=== PATIENT | female | born 1940 | race Caucasian/White ===

== ENCOUNTER 2022-05-23 12:36 | Emergency (ER) | payer MEDICARE, OTHER, SELFPAY ==
--- NOTE | 2022-05-23 13:00 | DI.CT.S_ITS ---
PROCEDURE: CT CERVICAL SPINE WO CON INDICATIONS: fall, back pain, dementia TECHNIQUE: Noncontrast 3 mm thick sections acquired from the skull base to the T4 level. Sagittal and coronal reformats were then constructed. For radiation dose reduction, the following was used: automated exposure control, adjustment of mA and/or kV according to patient size. COMPARISON: None. FINDINGS: Image quality: Excellent. Bones: No fracture or dislocation. Visualized superior ribs are intact. Soft tissues: Prevertebral soft tissues are normal in thickness. No paravertebral hematomas. No apical pneumothoraces. IMPRESSION: No CT evidence of acute traumatic cervical spine injury. Dictated by: Jose Washburn M.D. on 05/23/2022 at 13:56 Approved by: Jose Washburn M.D. on 05/23/2022 at 13:58
--- NOTE | 2022-05-23 13:00 | DI.CT.S_ITS ---
PROCEDURE: CT HEAD/BRAIN WO CON INDICATIONS: fall, back pain, dementia TECHNIQUE: Noncontrast 4.5 mm thick angled axial sections acquired from the foramen magnum to the vertex, with coronal and sagittal reformats. For radiation dose reduction, the following was used: automated exposure control, adjustment of mA and/or kV according to patient size. COMPARISON: None. FINDINGS: Image quality: Excellent. CSF spaces: Basal cisterns are patent. No extra-axial fluid collections. The ventricles are symmetric in size and shape. Brain: No intracranial bleeds or masses. There is moderate cerebral volume loss for age, with resultant ventricular and sulcal prominence. There are moderate periventricular and deep white matter chronic small vessel ischemic changes. There is intracranial internal carotid artery atherosclerosis. Skull and face: Calvarium and visualized facial bones appear intact, without suspicious lesions. Sinuses: Visualized sinuses and mastoids are clear. IMPRESSION: No acute intracranial finding. Dictated by: Jose Washburn M.D. on 05/23/2022 at 13:52 Approved by: Jose Washbrun M.D. on 05/23/2022 at 13:53
[2022-05-23 13:09] VITALS: BP 116/59; PULSE 64; RESP 18; TEMP 36.8; O2SAT 97; BMI 29.2
--- NOTE | 2022-05-23 13:15 | DI.RAD.S_ITS ---
PROCEDURE: XR FOREARM RT 2V INDICATIONS: fall/pain TECHNIQUE: 2 views of the forearm were acquired. COMPARISON: None. FINDINGS: Bones: There is a mildly displaced fracture of 1 bone with of the distal 3rd of the right radius diaphysis. Ulna is intact. Soft tissues: No suspicious soft tissue calcifications or masses. IMPRESSION: Mildly displaced fracture and angulation of the distal 3rd of the left ulna. Dictated by: Erick Ascencio M.D. on 05/23/2022 at 14:34 Approved by: Erick Ascencio M.D. on 05/23/2022 at 14:35
--- NOTE | 2022-05-23 13:15 | DI.RAD.S_ITS ---
PROCEDURE: XR WRIST RT MIN 3V INDICATIONS: fall/pain TECHNIQUE: 4 views of the wrist were acquired. COMPARISON: None. FINDINGS: Bones: Fracture of the distal 3rd of the ulna diaphysis with displacement and angulation. Severe degenerative changes of the 1st metacarpophalangeal joint. Scaphoid view: No fracture identified Soft tissues: No suspicious soft tissue calcifications. IMPRESSION: 1. Fracture of the distal 3rd of the ulna diaphysis with displacement and angulation. 2. Severe degenerative changes of the 1st metacarpophalangeal joint. Dictated by: Erick Ascencio M.D. on 05/23/2022 at 14:35 Approved by: Erick Ascencio M.D. on 05/23/2022 at 14:37
--- NOTE | 2022-05-23 13:20 | DI.CT.S_ITS ---
PROCEDURE: CT THORACIC SPINE WO CON INDICATIONS: S TECHNIQUE: Noncontrast 3 mm thick sections acquired through the region of interest in the thoracic spine. Sagittal and coronal reformats were then constructed. For radiation dose reduction, the following was used: automated exposure control. COMPARISON: None. FINDINGS: Thoracic and thoracolumbar S-shaped scoliosis. No listhesis in the thoracic spine. Vertebral body heights maintained. No acute fracture. Remote right posterior rib fractures noted. IMPRESSION: No CT evidence of acute traumatic thoracic spine injury. Dictated by: Jose Washburn M.D. on 05/23/2022 at 14:01 Approved by: Jose Washburn M.D. on 05/23/2022 at 14:03
--- NOTE | 2022-05-23 13:20 | DI.CT.S_ITS ---
PROCEDURE: CT LUMBAR SPINE WO CON INDICATIONS: FALL TECHNIQUE: Noncontrast 3 mm thick sections acquired from the T12 level to the sacrum. Sagittal and coronal reformats were constructed. For radiation dose reduction, the following was used: automated exposure control. COMPARISON: [facility], CT, CT THORACIC SPINE WO CON, 05/23/2022, 13:24. FINDINGS: Vertebral body heights maintained. Degenerative anterolisthesis of L4 on L5 measuring 4 millimeters. Otherwise normal alignment. Degenerative changes. No acute soft tissue abnormality. IMPRESSION: No CT evidence of acute traumatic injury in the lumbar spine. Dictated by: Jose Washburn M.D. on 05/23/2022 at 13:58 Approved by: Jose Washburn M.D. on 05/23/2022 at 14:01
--- NOTE | 2022-05-23 17:38 | ED.UPPEXIN ---
HPI - Extremity Injury (Upper) General Chief Complaint: Extremity Injury, Upper Stated Complaint: fall today, back pain,R arm injury, dementia Time Seen by Provider: 05/23/22 13:00 Source: patient Mode of arrival: Wheelchair History of Present Illness HPI narrative: This is a 82-year-old female who is brought into the emergency department by family member and caregiver who states that patient has had increased falls over the last few weeks, increased weakness, history of dementia, today fell down and complains back pain, hip and leg pain, right forearm pain and states this is the worst of all of her problems. She does not have any open wounds or abrasion, right forearm is deformed, she is able to move all of her fingers, denies numbness or tingling, she is ambulatory, without new weakness or unilateral weakness. She is pleasant, normal phonation, talkative, A&O times 1-3 but forgetful, easily directable. Patient has not had any pain medication prior to her arrival. She is right-hand dominant, lives at [facility]. Her primary care provider is Dr. Nir Ayon. Denies any urinary changes, patient's daughter states that her last urine was negative for infection and it was within the last week. She has not had any upper respiratory symptoms of illness, she has generalized weakness, and deconditioning. She is not in physical therapy at this time. Patient's daughter denies any abnormal behavior, states that she thinks she is getting weaker because she does not practice any physical exercise. Related Data Allergies Allergy/AdvReac Type Severity Reaction Status Date / Time morphine AdvReac Severe Vomiting Verified 05/23/22 13:08 Review of Systems Review of Systems ROS Unobtainable: All systems reviewed & are unremarkable except as noted in HPI and below Patient History Social History Smoking Status: Never smoker Smoking Status: Never smoker Substance Use Type: does not use Exam Narrative Exam Narrative: Reviewed vitals signs and nursing notes. General: cooperative, comfortable, in no acute distress, well groomed HEENT: symmetrical facial expressions, moist mucous membranes MSK: moves all extremities, neurovascularly intact, no focal weakness, normal tone. Deformity to right forearm over the distal ulna proximally, patient with normal sensation to her fingers, can wiggle all fingers with normal range of motion and no deficit, normal range of motion of her right elbow without deficit, tenderness to palpation. Complains of pain at her right forearm where the deformity is. No tenderness to her spine with palpation, Skin: brisk capillary refill, without pallor or erythema Neuro: normal speech and cognition, A&O x1-3, history of dementia, ambulatory, clear speech Psych: mental status is grossly normal with history of dementia, wants to go home, congruent mood, normal affect, pleasant and cooperative Initial Vital Signs Initial Vital Signs: Vital Signs Temperature 98.2 F 05/23/22 13:09 Pulse Rate 64 05/23/22 13:09 Respiratory Rate 18 05/23/22 13:09 Blood Pressure 116/59 L 05/23/22 13:09 Pulse Oximetry 97 05/23/22 13:09 Oxygen Delivery Method 05/23/22 13:09 Procedures Orthopedic Splinting/Casting Injury #1: Side: right Upper Extremity Injury Location: forearm Upper Extremity Immobilizer: sling/shoulder immobilizer and sugar tong splint Post splinting neuro exam: intact and no change Post splinting vascular exam: intact Placed by: Provider Additional Comments: Pulled traction on the ulnar aspect while applying splint with improved pain, mild improvement in angulation, patient remains neurovascularly intact following splint, fingertips warm Course Orders Ordered: ED Orders 05/23/22 13:00 CT cervical spine wo con Stat CT head/brain wo con Stat 05/23/22 13:15 XR forearm RT 2V Stat XR wrist RT min 3V Stat 05/23/22 13:20 CT lumbar spine wo con Stat CT thoracic spine wo con Stat Discontinued Medications Acetaminophen (Acetaminophen 325 Mg Tablet) 650 mg PO NOW ONE Stop: 05/23/22 17:36 Last Admin: 05/23/22 17:45 Dose: 650 mg Ibuprofen (Ibuprofen 400 Mg Tablet) 400 mg PO NOW ONE Stop: 05/23/22 17:36 Last Admin: 05/23/22 17:45 Dose: 400 mg Methocarbamol (Methocarbamol 500 Mg Tablet) 250 mg PO NOW ONE Stop: 05/23/22 17:36 Last Admin: 05/23/22 17:45 Dose: 250 mg Vital Signs Vital signs: Vital Signs - 8 hr 05/23/22 13:09 05/23/22 18:58 Temperature 98.2 F Pulse Rate 64 70 Respiratory Rate 18 16 Blood Pressure 116/59 L 120/60 Pulse Oximetry 97 97 Oxygen Delivery Method Room Air Room Air MDM - Extremity Injury (Upper) Imaging Data Extremity x-ray #1: Radiologist's Impression: PROCEDURE:? XR FOREARM RT 2V ? INDICATIONS:? fall/pain ? TECHNIQUE:? 2 views of the forearm were acquired.? ? COMPARISON:? None. ? FINDINGS:? ? Bones:? There is a mildly displaced fracture of 1 bone with of the distal 3rd of the right radius diaphysis.? Ulna is intact. ? Soft tissues:? No suspicious soft tissue calcifications or masses.? ? ? IMPRESSION:? Mildly displaced fracture and angulation of the distal 3rd of the left ulna. ? Dictated by: Erick Ascencio M.D. on 05/23/2022 at 14:34 ? ? Approved by: Erick Ascencio M.D. on 05/23/2022 at 14:35 ? ct thoracic: Radiologist's Impression: PROCEDURE:? CT THORACIC SPINE WO CON ? INDICATIONS:? S ? TECHNIQUE:? Noncontrast 3 mm thick sections acquired through the region of interest in the thoracic spine.? Sagittal and coronal reformats were then constructed.? For radiation dose reduction, the following was used:? automated exposure control.? ? COMPARISON:? None. ? FINDINGS:? Thoracic and thoracolumbar S-shaped scoliosis.? No listhesis in the thoracic spine.? Vertebral body heights maintained.? No acute fracture.? Remote right posterior rib fractures noted. ? IMPRESSION:? No CT evidence of acute traumatic thoracic spine injury. ? ? Dictated by: Jose Washburn M.D. on 05/23/2022 at 14:01 ? ? Approved by: Jose Washburn M.D. on 05/23/2022 at 14:03 ? ct lumbar: Radiologist's Impression: PROCEDURE:? CT LUMBAR SPINE WO CON ? INDICATIONS:? FALL ? TECHNIQUE:? Noncontrast 3 mm thick sections acquired from the T12 level to the sacrum.? Sagittal and coronal reformats were constructed.? For radiation dose reduction, the following was used:? automated exposure control.? ? COMPARISON:? [facility], CT, CT THORACIC SPINE WO CON, 05/23/2022, 13:24. ? FINDINGS:? Vertebral body heights maintained.? Degenerative anterolisthesis of L4 on L5 measuring 4 millimeters.? Otherwise normal alignment.? Degenerative changes.? No acute soft tissue abnormality. ? ? IMPRESSION:? No CT evidence of acute traumatic injury in the lumbar spine. ? ? Dictated by: Jose Washburn M.D. on 05/23/2022 at 13:58 ? ? Approved by: Jose Washburn M.D. on 05/23/2022 at 14:01 ? Extremity x-ray #2: Radiologist's Impression: PROCEDURE:? XR WRIST RT MIN 3V ? INDICATIONS: fall/pain ? TECHNIQUE:? 4 views of the wrist were acquired.? ? COMPARISON:? None. ? FINDINGS:? ? Bones:? Fracture of the distal 3rd of the ulna diaphysis with displacement and angulation.? Severe degenerative changes of the 1st metacarpophalangeal joint. ? Scaphoid view:? No fracture identified ? Soft tissues:? No suspicious soft tissue calcifications.? ? IMPRESSION:? 1. Fracture of the distal 3rd of the ulna diaphysis with displacement and angulation. 2. Severe degenerative changes of the 1st metacarpophalangeal joint.? ? ? Dictated by: Erick Ascencio M.D. on 05/23/2022 at 14:35 ? ? Approved by: Erick Ascencio M.D. on 05/23/2022 at 14:37 ? CT scan - head: Radiologist's Impression: PROCEDURE:? CT HEAD/BRAIN WO CON ? INDICATIONS:? fall, back pain, dementia ? TECHNIQUE:? Noncontrast 4.5 mm thick angled axial sections acquired from the foramen magnum to the vertex, with coronal and sagittal reformats.? For radiation dose reduction, the following was used:? automated exposure control, adjustment of mA and/or kV according to patient size.? ? COMPARISON:? None. ? FINDINGS:? Image quality:? Excellent.? ? CSF spaces:? Basal cisterns are patent.? No extra-axial fluid collections.? The ventricles are symmetric in size and shape.? ? Brain:? No intracranial bleeds or masses.? There is moderate cerebral volume loss for age, with resultant ventricular and sulcal prominence.? There are moderate periventricular and deep white matter chronic small vessel ischemic changes.? There is intracranial internal carotid artery atherosclerosis.? ? Skull and face:? Calvarium and visualized facial bones appear intact, without suspicious lesions.? ? Sinuses:? Visualized sinuses and mastoids are clear.? ? IMPRESSION:? No acute intracranial finding. ? ? Dictated by: Jose Washburn M.D. on 05/23/2022 at 13:52 ? ? Approved by: Jose Washburn M.D. on 05/23/2022 at 13:53 ? CT - cervical spine: Radiologist's Impression: PROCEDURE:? CT CERVICAL SPINE WO CON ? INDICATIONS:? fall, back pain, dementia ? TECHNIQUE:? Noncontrast 3 mm thick sections acquired from the skull base to the T4 level.? Sagittal and coronal reformats were then constructed.? For radiation dose reduction, the following was used:? automated exposure control, adjustment of mA and/or kV according to patient size.? ? COMPARISON:? None. ? FINDINGS:? Image quality:? Excellent.? ? Bones:? No fracture or dislocation.? Visualized superior ribs are intact.? ? Soft tissues:? Prevertebral soft tissues are normal in thickness.? No paravertebral hematomas.? No apical pneumothoraces.? ? ? IMPRESSION:? No CT evidence of acute traumatic cervical spine injury. ? ? Dictated by: Jose Washburn M.D. on 05/23/2022 at 13:56 ? ? Approved by: Jose Washburn M.D. on 05/23/2022 at 13:58 ? MDM Narrative Medical decision making narrative: This is an 82-year-old female who presents to the emergency department after a mechanical fall at her assisted living residence with history of frequent falls, dementia, she is not anticoagulated, did not hit her head, have any episodes of vomiting, and presents to the emergency department for complaint of right forearm pain, back pain, leg pain with a family member who is also a caregiver and good historian for the patient. Patient had a deformity of her distal right forearm, was found to have a fractured ulna with significant displacement Discharge Plan Departure Patient Disposition: Home Clinical Impression: Fracture, ulna, distal Instructions: Forearm Fracture Activity Restrictions/Additional Instructions: *You have been diagnosed with a fracture of the ulnar bone in your right arm with significant displacement. Thursday morning, please call for follow-up with [facility] as soon as possible. Please have her seen as soon as they are able, this may be treated surgically with a plate. Please give her pain medicine as needed for her pain, encourage hydration, she needs extra observation and support for risk of falls. For pain, please give her Tylenol 650 mg with ibuprofen 400 mg every 6 hours as needed with food and water. She can keep her arm in a sling to help keep it elevated, have her elevate it frequently. *What to do: *Please continue to take your regular medications as directed. [ ] New medication prescriptions sent to your pharmacy: [ ] [ ] New medication written as a paper prescription [x ] No new medications given *Please follow up with your primary care provider in 2-3 days, call for an appointment. Let them know you were seen in the Emergency Department and that we asked that you be seen for follow-up. We will electronically transmit a record of today's note if your PCP is in our system *If you do not have a primary care provider please contact [phone] to establish care with one of [facility] primary care providers. *Return to Emergency Department if you should have any new, worsening, or concerning symptoms, such as [fever greater than 101F, chills, worsening pain, persistent vomiting or other bothersome symptoms]. Referrals: [facility] [Provider Group] Rachna Burgos MD [Primary Care Provider] - Lavon Batista MD [Physician] -
[2022-05-23] MEDS: ACETAMINOPHEN 325 MG TABLET 650 MG PO (17:45)
[2022-05-23] MEDS: methocarbamoL 500 MG TABLET 250 MG PO (17:45)
[2022-05-23] MEDS: IBUPROFEN 400 MG TABLET PO (17:45)
[2022-05-23 18:58] VITALS: BP 120/60; PULSE 70; RESP 16; O2SAT 97
== END 2022-05-23 18:59 | disposition home or self-care (01) ==
PROVIDERS: Emergency Provider Nurse Practitioner Critical Care Medicine; PCP Internal Medicine
DX: S52.601A Unspecified fracture of lower end of right ulna, initial encounter for closed fracture (principal); M54.9 Dorsalgia, unspecified; W18.30XA Fall on same level, unspecified, initial encounter; R29.6 Repeated falls; F03.90 Unspecified dementia, unspecified severity, without behavioral disturbance, psychotic disturbance, mood disturbance, and anxiety
CPT/HCPCS: 29125; 70450; 72125; 72128; 72131; 73090; 73110; 99284

== ENCOUNTER 2022-05-25 19:03 | Inpatient (IN) | payer MEDICARE, OTHER, SELFPAY ==
[2022-05-25 19:50] VITALS: BMI 25.8
[2022-05-25 21:10] VITALS: BP 100/59; PULSE 73; RESP 22; TEMP 36.4; O2SAT 93
--- NOTE | 2022-05-25 21:20 | P.HP_ITS ---
History of Present Illness History of Present Illness Date Patient Seen: 05/25/22 Time Patient Seen: 20:45 Chief complaint: INPT DIRECT ADMIT Narrative: Sweetie is an 82-year-old woman with a history of dementia. She lives at an assisted living home in [place]. She is had 2 recent falls. She was seen in the emergency room on May 23 where a radial shaft fracture was diagnosed. She was sent home in a splint with instructions to call our office for follow- up. She subsequently had a 2nd fall landing on her right hip and was unable to rise. Radiographs there have shown a displaced femoral neck fracture. She is been transferred to [facility] for definitive management of these fractures. Patient History Medical History (Updated 05/25/22 @ 21:25 by Lavon Batista MD) Dementia Glaucoma Hypercholesterolemia Hypertension Hypothyroidism Surgical History (Updated 05/25/22 @ 21:25 by Lavon Batista MD) H/O: hysterectomy Family & Social History Social History: Prior Living Arrangements Assisted Living Safety & Behavioral: Feels Safe in Current No Environment Been Physically Hurt or No Threatened By a Person Tobacco & Substance use: Smoking Status Never smoker alcohol intake never Substance Use Type does not use Meds Home Medications and Allergies Home Medications Medication Instructions Recorded Confirmed Type acetaminophen 500 mg capsule 500 mg PO Q6H PRN pain 05/25/22 05/25/22 History atorvastatin 40 mg tablet 40 mg PO DAILY 05/25/22 05/25/22 History docusate sodium 100 mg capsule 100 mg PO DAILY PRN Constipation 05/25/22 05/25/22 History hydrochlorothiazide 12.5 mg capsule 12.5 mg PO DAILY 05/25/22 05/25/22 History latanoprost 0.005 % eye drops 1 drp ophthalmic (eye) BEDTIME 05/25/22 05/25/22 History levothyroxine 50 mcg tablet 50 mcg PO DAILY 05/25/22 05/25/22 History loperamide 2 mg capsule 2 mg PO QID PRN Diarrhea 05/25/22 05/25/22 History metoprolol succinate 25 mg capsule 25 mg PO DAILY 05/25/22 05/25/22 History sprinkle, ext. release 24 hr potassium chloride 10 mEq 10 meq PO DAILY 05/25/22 05/25/22 History tablet,extended release (Klor-Con) sennosides 8.6 mg capsule (senna) 8.6 mg PO DAILY PRN Constipation 05/25/22 05/25/22 History sertraline 50 mg tablet 75 mg PO DAILY 05/25/22 05/25/22 History timolol 0.5 % eye drops 1 drp ophthalmic (eye) BID 05/25/22 05/25/22 History Allergies Allergy/AdvReac Type Severity Reaction Status Date / Time morphine AdvReac Severe Vomiting Verified 05/23/22 13:08 Review of Systems Review of Systems Narrative: She has had recent progression in her dementia. She denies any current medical illness however dementia does prevent detailed review of systems. Exam Narrative Exam Narrative: On physical examination she is lying comfortably in bed but somewhat agitated, picking at her sheets and attempting to get up. She is normocephalic atraumatic. Chest is clear to auscultation. Cardiac exam is regular rate and rhythm no rubs murmurs or gallops. Abdomen is soft nontender with normal abdominal bowel sounds. Right upper extremity is in a well-fitting sugar-tong splint with intact light touch distally. Right lower extremity is appropriately aligned however there is pain on pressure on the right hip. There is no sign of any skin lesion over the site of the proposed incision. She has intact light touch and motion in the right lower extremity distally. Assessment & Plan Assessment & Plan narrative: The patient is a woman with a history of hypertension, glaucoma, hypercholesterolemia, hypothyroidism and dementia who lives at assisted living and has had 2 recent fall sustaining injuries to the right forearm with a radial shaft fracture into the right femoral neck with a femoral neck fracture. I have discussed treatment with her son who holds durable power of environmental attorney. I have explained that she likely will require a hemiarthroplasty for her hip although final decision here will be made after full radiographic studies have been transmitted from [facility]. (She was sent without radiographs accompanying her). Radial shaft fracture will require a dynamic compression plate. Has given his signed informed consent after discussion the risks benefits and alternatives. Risks discussed included but were not limited to: Failure to improve, stiffness, infection, nerve damage, deep venous thrombosis, pulmonary embolism, stroke, myocardial infarction, permanent paralysis and . A hospitalist consult will be obtained for assistance with her medical issues during her hospitalization. COVID-19 COVID-19 status: Negative Result date/Date tested (Pos, Neg/Pending): 05/25/22 Time Spent With Patient Critical Care time: I spent a total of [] minutes of critical care time on this patient's care today; this time is exclusive of procedural time.
[2022-05-25] MEDS: LORazepam 2 MG/ML INJ 0.5 MG IV (21:22)
[2022-05-25] MEDS: SODIUM CHLORIDE 0.9% FLUSH 10 ML IV (21:22)
--- NOTE | 2022-05-25 21:36 | P.CONS_ITS ---
History of Present Illness Consult details Date Patient Seen: 05/25/22 Time Patient Seen: 23:00 Chief complaint: INPT DIRECT ADMIT Narrative: Ms. Porras is an 82W with PMH dementia, HTN, hypothyroid who is a direct admit after a fall. She was seen in the ED after a fall on 05/23/22 and had a radial shaft fracture. She was discharged. She fell again and landed on her right hip, she was unable to bear weight. She presented to [facility] and was transferred to [facility] and admitted to orthopedic surgery service. Medicine is consulted to assist with management of her medical issues including dementia and hypertension. Labs at [facility] largely unremarkable with WBC 7.3, hgb 13.3, creatinine 0.7. UA negative for infection. R hip imaging notable for right femoral neck fracture. CT head with no acute process When I see her she is somewhat confused, she is denying pain. Family history: asked and patient does not recall any family, possibly secondary to dementia Meds Home Medications and Allergies Home Medications Medication Instructions Recorded Confirmed Type acetaminophen 500 mg capsule 500 mg PO Q6H PRN pain 05/25/22 05/25/22 History atorvastatin 40 mg tablet 40 mg PO DAILY 05/25/22 05/25/22 History docusate sodium 100 mg capsule 100 mg PO DAILY PRN Constipation 05/25/22 05/25/22 History hydrochlorothiazide 12.5 mg capsule 12.5 mg PO DAILY 05/25/22 05/25/22 History latanoprost 0.005 % eye drops 1 drp ophthalmic (eye) BEDTIME 05/25/22 05/25/22 History levothyroxine 50 mcg tablet 50 mcg PO DAILY 05/25/22 05/25/22 History loperamide 2 mg capsule 2 mg PO QID PRN Diarrhea 05/25/22 05/25/22 History metoprolol succinate 25 mg capsule 25 mg PO DAILY 05/25/22 05/25/22 History sprinkle, ext. release 24 hr potassium chloride 10 mEq 10 meq PO DAILY 05/25/22 05/25/22 History tablet,extended release (Klor-Con) sennosides 8.6 mg capsule (senna) 8.6 mg PO DAILY PRN Constipation 05/25/22 05/25/22 History sertraline 50 mg tablet 75 mg PO DAILY 05/25/22 05/25/22 History timolol 0.5 % eye drops 1 drp ophthalmic (eye) BID 05/25/22 05/25/22 History Allergies Allergy/AdvReac Type Severity Reaction Status Date / Time morphine AdvReac Severe Vomiting Verified 05/23/22 13:08 Review of Systems Review of Systems Narrative: 14 systems reviewed and negative aside from what is noted in HPI Exam Narrative Exam Narrative: GEN: slightly agitated HEENT: moist mucous membranes, PERRL NECK: trachea midline, no JVD PULM: clear bilaterally, no wheezes, rhonchi, rales CV: regular rate and rhythm, no murmurs ABD: soft, nontender, nondistended, no organomegaly, normal bowel sounds EXT: warm and well perfused, no edema NEURO: awake, alert, confused PFSH Medical History Dementia Glaucoma Hypercholesterolemia Hypertension Hypothyroidism Surgical History H/O: hysterectomy Tobacco & Substance Use Smoking Status: Never smoker alcohol intake: never Assessment & Plan Assessment & Plan narrative: 1. Right hip fracture -NPO at midnight -pain medications ordered -admitted to orthopedic surgery and plan per them for surgery tomorrow 2. Right forearm fracture -plan per orthopedic surgery 3. Hypertension -continue home medications 4. Dementia -reorient as able -ativan ordered for anxiety/agitation 5. Hypothyroidism -continue synthroid CODE: DNR Proxy: Quinton Collado, daughter I have utilized all available resources to reconcile the patient's home medications Time Spent With Patient Critical Care time: I spent a total of [] minutes of critical care time on this patient's care today; this time is exclusive of procedural time.
[2022-05-26] VITALS (13 sets, daily range): BP systolic 114–198; BP diastolic 54–93; PULSE 58–121; RESP 16–31; TEMP 36.1–36.9; O2SAT 88–100
--- NOTE | 2022-05-26 | DI.RAD.S_ITS ---
PROCEDURE: XR PELVIS 1-2V INDICATIONS: right femural neck fracture TECHNIQUE: Intra-operative view of the pelvis and hip acquired. COMPARISON: [facility], CR, XR HIP W PEL IF DONE RT 2V, 05/26/2022, 9:32. FINDINGS: Bones: There is interval placement of a right hip prosthesis. No fractures or dislocation. Soft tissues: Overlying surgical retractors are present, along with other intraoperative changes. IMPRESSION: 1. Intraoperative study demonstrates interval placement of a right hip prosthesis. Dictated by: Gavino Chapin M.D. on 05/26/2022 at 22:04 Approved by: Gavino Chapin M.D. on 05/26/2022 at 22:05
--- NOTE | 2022-05-26 00:06 | PC.ADMIT ---
Addendum entered by Danielle Lozoya R.N. 05/26/22 02:32: Has splint to right UE (recent fx of radial shaft). CMS intact except hand is cool to touch. Original Note: Donaldo E Alina Finne num [id number] Admission Note: The patient,Sweetie Porras,82 y/o, was given written information regarding hospital policies, unit procedures and contact persons. Patient's smoking status: Never smoker. Vital Signs - 8 hr 05/25/22 19:50 05/25/22 21:00 Temperature 97.5 F L Pulse Rate 73 Respiratory Rate 22 Blood Pressure 100/59 L Pulse Oximetry 93 Oxygen Delivery Method Room Air Patient admitted to room 223 via BLS transport. On arrival was agitated, combative and resistive to cares; trying to get out of bed. Did calm down somewhat after son and DIL arrived. Is alert but confused. Dr. Batista was here to see patient and order received for Ativan which was administered. At this time patient is calm and cooperative with staff. Breath sounds CTA with RA sat of 93%. HRR. Denied nausea. BT present and abdomen is soft. Indwelling catheter placed by FABY Morrissey with return of clear, dark moreno urine. Denies pain when asked. Bilateral calf SCD's applied. Fall risk score is high and bed alarm is activated. Son rooming in.
[2022-05-26] MEDS: LORazepam 2 MG/ML INJ 0.5 MG IV ×2 (03:22→22:18)
[2022-05-26] MEDS: SODIUM CHLORIDE 0.9% FLUSH 10 ML IV ×3 (03:23→23:20)
[2022-05-26 05:11] LABS: Add Manual Diff / Slide Review NO; Basophils Absolute Auto 0 /uL (0-100); Basophils Percent Auto 0.4 % (0-2); Eosinophils Absolute Auto 200 /uL (0-450); Eosinophils Percent Auto 2.8 % (2-4); Hematocrit 41.1 % (36-46); Hemoglobin 13.8 g/dL (12.0-16.0); Lymphocytes Absolute Auto 1300 /uL (1100-4500); Lymphocytes Percent Auto 21.2 % (25-40); Mean Corpuscular HGB Conc 33.5 % (30-36); Mean Corpuscular Hemoglobin 29.1 PG (26-34); Mean Corpuscular Volume 86.7 fL (80-100); Monocytes Absolute Auto 600 /uL (0-900); Monocytes Percent Auto 9.8 % (3-14); Neutrophils Absolute Auto 4200 /uL (1500-7000); Neutrophils Percent Auto 65.8 % (50-75); Platelet Count 156 X10^3/uL (150-400); Red Blood Cell Count 4.74 X10^6/uL (4.0-5.2); Red Cell Distribution Width 13.7 % (11.6-14.8); White Blood Cell Count 6.4 X10^3/uL (4.5-11.0)
[2022-05-26 05:20] LABS: BUN Creatinine Ratio 27.5 (6-22); Blood Urea Nitrogen 14 mg/dL (7-17); Calcium 8.1 mg/dL (8.4-10.2); Carbon Dioxide 26 mmol/L (22-32); Chloride 99 mmol/L (98-107); Estimated Glomerular Filt Rate > 60 mL/min (>60); Glucose 78 mg/dL (80-110); HEMOLYSIS < 15 (0-50); Sodium 136 mmol/L (137-145)
[2022-05-26 05:42] LABS: Potassium 2.7 mmol/L (3.4-5.1)
[2022-05-26] MEDS: LEVOTHYROXINE 50 MCG TABLET PO (06:14)
[2022-05-26] MEDS: POTASSIUM CHLORIDE IN WATER 10 MEQ/100 ML PIGGYBACK 100 MEQ IV ×4 (06:14→10:45)
--- NOTE | 2022-05-26 09:08 | DI.RAD.S_ITS ---
PROCEDURE: XR HIP W PEL IF DONE RT 2V INDICATIONS: Right hip fracture TECHNIQUE: 2 views of the hip were acquired. COMPARISON: None. FINDINGS: Mildly angulated subcapital femoral neck fracture. No additional fracture. IMPRESSION: Minimally angulated subcapital femoral neck fracture. Dictated by: Jose Washburn M.D. on 05/26/2022 at 10:20 Approved by: Jose Washburn M.D. on 05/26/2022 at 10:21
--- NOTE | 2022-05-26 14:24 | CM.DANOTE ---
Addendum entered by Elzbieta Mccann R.N. 05/26/22 14:40: Son will bring in POA/Living will paperwork tomorrow. EMMETT Original Note: Initial Discharge Summary: Case reviewed, spoke with son Presley by phone and his Quinton. Patient has dementia and is sleeping. Payer: Medicare and [facility] PCP: ([facility]) Tao Irizarry Ayon 82 year old female admitted last pm. Patient has had recent falls and fractured humerus and was seen at [facility] who placed arm in sling a few days ago. She then fell again, patient was confused, unknown details and was a direct admit to [facility] from [facility] with a fractured hip. She presented as confused, dementia at baseline (son reports has worsened in the past 3 weeks). Patient to undergo surgery today for hip and arm. She has been living at [facility] in [place] and has declined this past month per son. Spoke with son Presley by phone and educated him and his re SNF Rehabs on discharge, they will do research on them. They are also looking into Memory Care facilities for after rehab stay. They state patient has LTC Insurance. Recommended they visit SNFs and memory care facilities they are interested in. Plan: Plan for SNF Rehab on discharge. Follow closely EMMETT Discharge Planning/Care Management Advanced directive, confirm from FAMILY Start: 05/25/22 20:53 Freq: Q24H Status: Active Protocol: Document 05/25/22 20:53 [facility] (Rec: 05/25/22 22:35 [facility] [id number]) Advance Directive, confirm on record Time 20:53 Person contacted Presley Porras Copy received No CM Discharge Assessment Start: 05/26/22 14:20 Freq: Status: Active Protocol: Document 05/26/22 14:21 (Rec: 05/26/22 14:22 [id number]) Discharge Planning Assessment Assigned Professional Builder Chasity Mccann RN/NANIP Advance Directives? Yes Advance Directives on File No History Provided By Patient Prior Living Arrangements Assisted Living Comment living at [facility] Household Members other Type of transporation used prior to Relies on Others admit Facility Name Admitted From: Other Is patient alert and oriented? No Needs Assistance With Bathing,Meal Prep,Toileting, Managing Medications,Home Chores / Shopping Caregiver for Another No Comment [facility] Patient/Family Preference Halfway Facility Comment Patient is demented Discharge Plan Halfway Facility Referrals Initiated Halfway Review Status In Process Next Review Type Continued Stay Review
--- NOTE | 2022-05-26 15:11 | P.PN_ITS ---
Subjective Subjective Date Patient Seen: 05/26/22 Interval history: Ms. Porras is an 82W with PMH dementia, HTN, hypothyroid who is a direct admit after a fall. She was seen in the ED after a fall on 05/23/22 and had a radial shaft fracture. She was discharged. She fell again and landed on her right hip, she was unable to bear weight. She presented to [facility] and was transferred to [facility] and admitted to orthopedic surgery service. Medicine is consulted to assist with management of her medical issues including dementia and hypertension. She denies complaints today. Plan is for operative interventions today with orthopedic surgery. Exam Vital Signs (past 8 hours): - 05/26/22 09:00 05/26/22 12:00 Temperature 97.1 F L 97.0 F L Pulse Rate 61 58 L Respiratory Rate 16 16 Blood Pressure 122/56 L 149/60 H Pulse Oximetry 97 96 Oxygen Flow Rate 0 0 Oxygen Delivery Method Room Air Oxygen Flow Rate 0 Narrative Exam Narrative: GEN: elderly female, no acute distress. HEENT: moist mucous membranes, PERRL NECK: trachea midline, no JVD PULM: clear bilaterally, no wheezes, rhonchi, rales CV: regular rate and rhythm, no murmurs ABD: soft, nontender, nondistended, no organomegaly, normal bowel sounds EXT: warm and well perfused, no edema NEURO: awake, alert, confused Objective Labs Result Diagrams: 05/26/22 04:40 05/26/22 04:40 Labs: Laboratory Results - last 24 hr 05/26/22 05/26/22 04:40 04:40 WBC 6.4 RBC 4.74 Hgb 13.8 Hct 41.1 MCV 86.7 MCH 29.1 MCHC 33.5 RDW 13.7 Plt Count 156 Neut % (Auto) 65.8 Lymph % (Auto) 21.2 L Marshall % (Auto) 9.8 Eos % (Auto) 2.8 Baso % (Auto) 0.4 Neut # (Auto) 4200 Lymph # (Auto) 1300 Marshall # (Auto) 600 Eos # (Auto) 200 Baso # (Auto) 0 Sodium 136 L Potassium 2.7 L* Chloride 99 Carbon Dioxide 26 BUN 14 Creatinine 0.51 L Estimated GFR > 60 BUN/Creatinine Ratio 27.5 H Glucose 78 L Calcium 8.1 L PFSH Medical History Dementia Glaucoma Hypercholesterolemia Hypertension Hypothyroidism Surgical History H/O: hysterectomy Social History household members: other Smoking Status: Never smoker alcohol intake: never Assessment & Plan Assessment & Plan narrative: 1. Right displaced and pathologic given mechanism due to osteoporosis femoral neck fracture. -pain medications ordered -admitted to orthopedic surgery and plan per them for surgery today 2. Right displaced ulna fracture -plan per orthopedic surgery 3. Hypertension -continue home medications, HCTZ and metoprolol 4. Dementia -reorient as able -ativan ordered for anxiety/agitation 5. Hypothyroidism -continue synthroid 6. HLD - continue home statin 7. Hypokalemia, acute - k 2.7 was given repletion with IV this AM while NPO - continue to monitor CODE: DNR Proxy: Quinton Collado, daughter I have utilized all available resources to reconcile the patient's home medications Time Spent With Patient Critical Care time: I spent a total of [] minutes of critical care time on this patient's care today; this time is exclusive of procedural time.
[2022-05-26 18:45] LABS: HEMOLYSIS 220 (0-50)
[2022-05-26] MEDS: LACTATED RINGERS 1,000 ML 42 ML IV ×2 (18:45→21:20)
[2022-05-26 18:46] LABS: Potassium 5.8 mmol/L (3.4-5.1)
[2022-05-26] MEDS: CEFAZOLIN 2 GM/100 ML PREMIX 100 ML IV (19:15)
[2022-05-26] MEDS: TRANEXAMIC ACID 1,000 MG in SODIUM CHLORIDE 0.9% 100 ML 200 MG IV ×2 (19:25→20:10)
--- NOTE | 2022-05-26 19:41 | SUR.OPER ---
Lateral on padded OR bed. Gel axillary roll. Arms secured on padded armboard with pillow supporting top arm. Padded hip positioner braces x4 - anterior and posterior chest and pelvis. Additional gel pad used anterior pelvis. Gel pad under bottom leg from knee to foot and secured with tape over sheet.
--- NOTE | 2022-05-26 19:42 | SUR.OPER ---
Supine on padded OR bed, head on pillow, non operative arm secured on padded arm boards at <90 degrees abduction, operative arm on hand table, legs uncrossed, safety belt at thigh, tape over blanket over lower legs.
[2022-05-26] MEDS: BUPIVACAINE 0.5% W/ EPI (PF) 30 ML VIAL INJ (21:30)
--- NOTE | 2022-05-26 22:02 | PM.OP.1 ---
Operative Date/Time/Diagnoses Date of procedure: 05/26/22 Time of procedure: 22:02 Pre-op diagnosis: 1. Right femoral neck fracture 2. Right radial shaft fracture (closed, comminuted, displaced) Post-op diagnosis: same Procedure & Clinicians Procedure: 1. Right hip hemiarthroplasty 2. Open reduction internal fixation of right radial shaft fracture. Same procedure as scheduled: Yes Indications: The patient is an 82-year-old woman who has had several falls recently. She suffered a radial shaft fracture several days ago and then yesterday suffered a hip fracture. She is been admitted to the hospital for treatment of these fractures. Her son who holds durable power of assisted living manager has given consent after discussion the risks benefits and alternatives as documented in my history and physical. Surgeon: Lavon Batista Lawn Technician: Shari Cortez Click Yes if Unassisted: No Anesthesia Type: General and Local Operative Notes Findings: Displaced femoral neck and radial shaft fractures significant comminution of the radial shaft fracture. Closure Type: primary Specimen(s): none sent Prosthetic devices, grafts, tissues, transplants, or devices: Implants used in this procedure were manufactured by the [employer] for the hip and included a size 10 synergy cemented stem with a 45 mm tandem unipolar femoral head with a +0 neck sleeve and a 9 mm distal cement centralizer. In addition a [employer] canal plug was used. With respect to the radial fracture a [employer] small frag 3.5 mm 7 hole dynamic compression plate with 3 14 mm, 2 16 mm and 2 18 mm screws were used. Applied: cast(s) and implant(s) Estimated Blood Loss (mL): 150 Blood products transfused: none Tourniquet time (min): 47 Procedure in detail: The patient was seen in the pre-operative area, where they identified the right hip and the right forearm as the operative sites and these were marked with my initials. The patient received pre-operative antibiotics and was taken to the operating room and placed on the operative table in the left lateral decubitus position after satisfactory anesthesia. She was stabilized in this position using the hip qc scientist system. A motor vehicle lecturer out was performed. The right leg was prepared from the ankle to the iliac crest with ChloroPrep in the usual fashion and draped through sterile drapes. The hip was approached through an approximately 15 cm incision centered over the greater trochanter and curving gently posteriorly as it went proximally. This was carried sharply to the fascia krysta, which was divided and retracted with a self-retaining retractor. The trochanteric bursa was excised with care being taken to avoid the sciatic nerve, which was identified and protected throughout the case. The short external rotators were incised and the capsulomuscular flap was raised and tagged for later repair. The femoral head was removed with a ?corkscrew?, and the femoral neck osteotomy performed approximately 15 mm above the lesser trochanter. Retractors were placed to expose the acetabulum and a trial femoral head placed to confirm the size of the ball. We then turned our attention to the femur. The canal was opened with a box cutting osteotome, followed by a T handled reamer and a lateralizing reamer. Distal reamers were used. The broaches were used, sequentially enlarging until a good fit was obtained. A trial head and neck were then placed and the hip relocated and checked for leg length and stability. The patient was stable in the position of sleep, of squatting, and could be put through a range of motion with 45 degrees internal rotation without dislocation. At 90 degrees flexion, internal rotation to 60? was possible before dislocation began in dislocation completed at 70+ degrees. This was felt to be satisfactory and the appropriate components were opened, and the trials were removed. The canal was prepared by placing a distal cement plug. The pulsatile lavage was used followed by an epinephrine-soaked sponge for hemostasis. Cement was then retrograde injected and pressurized. The final stem was then impacted into the prepared femoral canal. Finally the femoral head was impacted onto the stem. The acetabulum was cleared of all material and the hip relocated one final time. Radiographs were obtained intra-operatively confirming the position of all components and confirming that there were no iatrogenic fractures. The capsulomuscular flap was then repaired to the greater trochanter though an awl hole using the tag sutures. The fascia krysta was closed with running and interrupted 0 Vicryl. The subcutaneous layer was closed with interrupted 3-0 Vicryl, and the skin with a running 3-0 V-Lock suture and SteriStrips. An Aquacel Ag dressing was applied. At this point the drapes were removed and the patient was repositioned in the supine position with a tourniquet about the proximal right arm and an arm table was applied to the operating room table. The sugar-tong splint she had been in was removed. We performed a 2nd time-out to confirm the new operative site. The right arm was prepared from the fingertips to the tourniquet with ChloraPrep and draped through sterile drapes. The arm was elevated and exsanguinated with an Esmarch bandage and the tourniquet inflated to 250 mmHg. An approximately 10 cm incision was created centered over the fracture site. This was just proximal to the outcropper muscles. We dissected to the subcutaneous border of the radius. The fracture was readily identified. There were 2 large butterfly fragments which had not been evident on x-ray and probably occurred while the patient was weight-bearing on her arm in the splint from the emergency room. This made gauging the length of the reduction somewhat difficult. I elected to take a 7 hole 3.5 mm dynamic compression plate and bent it slightly to approximate the appropriate curvature for the radius. This was applied with 3 holes on the distal fragment and then the proximal fragment was reduced to the plate. Proximal fragment was then placed. None of the screws were placed in compression as with the 2 butterfly fragments there was not a stable fracture pattern to allow compression. The position of the fracture and all fragments and hardware were viewed on fluoroscopy in the AP and lateral views this was felt to be satisfactory. She appeared to have normal pronation and supination indicating that the curvature of the radius was appropriate. The wound was then irrigated. The subcutaneous layer was closed with interrupted 3-0 Vicryl and the skin with interrupted horizontal mattress sutures of 4-0 nylon. The subcutaneous tissues were injected with 10 mL 0.5% Marcaine with epinephrine for postoperative pain control. Dressings of Xeroform, sterile 4x4s, sterile cast padding and dorsal and volar slab splints were applied. The tourniquet was deflated during dressing placement for total tourniquet time of 47 minutes. The patient was then returned to the recovery room in good condition having tolerated the procedure well. The services of a skilled personal injury legal assistant were necessary in this procedure to provide positioning of the extremity, exposure and retraction to protect vital structures. Without the services of a skilled personal injury legal assistant this procedure could not have been performed in a safe, expedient manner. Complications: none Post-operative Condition: stable Disposition: PACU Plan for aftercare: The patient will be maintained in the hospital for approximately 3 days and then likely transfer to retirement facility. She will be allowed to weight bear on the right upper extremity on her elbow using a platform walker and will be on posterior hip precautions for her hip hemiarthroplasty.
[2022-05-26] MEDS: ONDANSETRON 4 MG/2 ML INJ IV (22:16)
[2022-05-26 23:01] LABS: BUN Creatinine Ratio 24.1 (6-22); Blood Urea Nitrogen 13 mg/dL (7-17); Calcium 8.1 mg/dL (8.4-10.2); Carbon Dioxide 20 mmol/L (22-32); Chloride 103 mmol/L (98-107); Estimated Glomerular Filt Rate > 60 mL/min (>60); Glucose 90 mg/dL (80-110); HEMOLYSIS 29 (0-50); Potassium 3.9 mmol/L (3.4-5.1); Sodium 134 mmol/L (137-145)
[2022-05-26] MEDS: HYDROMORPHONE 0.5 MG INJ IV (23:20)
[2022-05-26] MEDS: TIMOLOL 0.5% OPHTH 1 DROPS EYE-BOTH (23:45)
[2022-05-26] MEDS: LATANOPROST 0.005% OPHTH 2.5 ML 1 DROPS EYE-BOTH (23:45)
[2022-05-27] VITALS (11 sets, daily range): BP systolic 101–150; BP diastolic 42–97; PULSE 65–91; RESP 17–18; TEMP 35.7–36.7; O2SAT 92–100
--- NOTE | 2022-05-27 01:41 | PC.NURSE ---
Patient returned to room 223 from PACU at 2245. Is drowsy but responds to questions asked. Initially denied pain but within 30 minutes was shaking and tearful with FLACC of 6 so was medicated with IV Dilaudid and shortly after was asleep with FLACC of 0. Breath sounds CTA and RA sat of 96% but after give Dilaudid she did start to desat into 80's so placed back on oxygen per mask at 2L/min and sat rebounded to high 90's. Currently has sat of 100% so decreased oxygen to 1L/min. HRR but tachy in low 100's and BP of 140/69; currently both tachycardia and elevated BP have resolved. Denied nausea. BT present and abdomen soft but has not had a BM since 05/22. Indwelling catheter is patent; urine is clear moreno. Will need to be repositioned q2h as not currently moving herself. Aquacel dressing to right hip is CDI. Right UE is splinted (had ORIF). CMS is intact. Bilateral calf SCD's applied. Fall risk score is high and bed alarm is activated.
[2022-05-27] MEDS: SODIUM CHLORIDE 0.9% 250 ML 21 ML IV (02:43)
[2022-05-27] MEDS: CEFAZOLIN 2 GM/100 ML PREMIX 100 ML IV ×2 (02:44→12:34)
[2022-05-27] MEDS: SODIUM CHLORIDE 0.9% FLUSH 10 ML IV ×3 (02:44→21:25)
[2022-05-27] MEDS: LEVOTHYROXINE 50 MCG TABLET PO (06:53)
[2022-05-27] MEDS: ACETAMINOPHEN 325 MG TABLET 650 MG PO ×3 (06:53→23:17)
--- NOTE | 2022-05-27 07:45 | P.PN_ITS ---
Subjective Subjective Date Patient Seen: 05/27/22 Time Patient Seen: 07:45 Interval history: Patient denies pain. No fever or chills. Her son is at bedside. States she usually is weight-bearing as tolerated using a walker. History of dementia. Exam Vital Signs (past 8 hours): - 05/27/22 00:00 05/27/22 01:00 05/27/22 02:00 Temperature 97.3 F L 96.7 F L 96.8 F L Pulse Rate 74 82 66 Respiratory Rate 18 18 18 Blood Pressure 101/48 L 106/49 L 114/42 L Pulse Oximetry 98 100 99 Oxygen Delivery Method Oxygen Flow Rate 2 2 2 05/27/22 03:24 05/27/22 05:57 Temperature 96.3 F L Pulse Rate 73 Respiratory Rate 18 Blood Pressure 131/47 L Pulse Oximetry 98 95 Oxygen Delivery Method Room Air Oxygen Flow Rate 1 0 Oxygen Delivery Method Room Air Oxygen Flow Rate 0 Narrative Exam Narrative: 82-year-old female resting comfortably in bed. Splint is in place right upper extremity. Motor functions intact distal right upper extremity. Sensation grossly intact to light touch. Fingers are warm and dry. Right hip dressings are clean, dry and intact. Motor functions intact bilateral lower extremities. Sensation grossly intact to light touch. Const General: comfortable Nutritional Appearance: average body habitus Resp Effort & Inspection: normal respiratory effort Objective Labs Result Diagrams: 05/27/22 08:28 05/27/22 08:28 Labs: Laboratory Results - last 24 hr 05/26/22 05/26/22 23:10 Unknown Sodium 134 L Potassium 3.9 D 5.8 H D Chloride 103 Carbon Dioxide 20 L BUN 13 Creatinine 0.54 Estimated GFR > 60 BUN/Creatinine Ratio 24.1 H Glucose 90 Calcium 8.1 L PFSH Medical History Dementia Glaucoma Hypercholesterolemia Hypertension Hypothyroidism Surgical History H/O: hysterectomy Social History household members: other Smoking Status: Never smoker alcohol intake: never Assessment & Plan Post-op Postoperative Procedures: Procedures Operation Date: 05/26/22 13:30 Actual Procedure Side Surgeon p Hip Hemiarthroplasty Right Lavon Batista MD s ORIF Forearm Fracture Right Lavon Batista MD Postoperative day: 1 Postoperative status narrative: Stable Postoperative plan narrative: PT/OT Weight bear on the right upper extremity on her elbow using a platform walker Posterior hip precautions for her hip hemiarthroplasty. Follow up SNO 2 wk Disposition, to be determined, we will likely need residential facility.
[2022-05-27 08:45] LABS: Add Manual Diff / Slide Review NO; Basophils Absolute Auto 0 /uL (0-100); Basophils Percent Auto 0.2 % (0-2); Eosinophils Absolute Auto 100 /uL (0-450); Eosinophils Percent Auto 1.1 % (2-4); Hematocrit 36.8 % (36-46); Hemoglobin 12.4 g/dL (12.0-16.0); Lymphocytes Absolute Auto 700 /uL (1100-4500); Lymphocytes Percent Auto 8.9 % (25-40); Mean Corpuscular HGB Conc 33.8 % (30-36); Mean Corpuscular Hemoglobin 29.3 PG (26-34); Mean Corpuscular Volume 86.5 fL (80-100); Monocytes Absolute Auto 900 /uL (0-900); Monocytes Percent Auto 10.7 % (3-14); Neutrophils Absolute Auto 6400 /uL (1500-7000); Neutrophils Percent Auto 79.1 % (50-75); Platelet Count 169 X10^3/uL (150-400); Red Blood Cell Count 4.25 X10^6/uL (4.0-5.2); Red Cell Distribution Width 13.1 % (11.6-14.8); White Blood Cell Count 8.1 X10^3/uL (4.5-11.0)
[2022-05-27 08:59] LABS: BUN Creatinine Ratio 28.3 (6-22); Blood Urea Nitrogen 13 mg/dL (7-17); Calcium 7.8 mg/dL (8.4-10.2); Carbon Dioxide 23 mmol/L (22-32); Chloride 100 mmol/L (98-107); Estimated Glomerular Filt Rate > 60 mL/min (>60); Glucose 108 mg/dL (80-110); HEMOLYSIS < 15 (0-50); Magnesium 1.7 mg/dL (1.6-2.3); Potassium 3.5 mmol/L (3.4-5.1); Sodium 134 mmol/L (137-145)
[2022-05-27] MEDS: TIMOLOL 0.5% OPHTH 1 DROPS EYE-BOTH ×2 (09:00→21:26)
[2022-05-27] MEDS: ASPIRIN EC 81 MG TABLET PO ×2 (09:15→21:24)
[2022-05-27] MEDS: SERTRALINE 50 MG TABLET 75 MG PO (09:16)
[2022-05-27] MEDS: ATORVASTATIN 20 MG TABLET 40 MG PO (09:16)
[2022-05-27] MEDS: METOPROLOL ER 25 MG TABLET PO (09:16)
[2022-05-27] MEDS: POTASSIUM CHLORIDE 10 MEQ TAB PO (09:16)
--- NOTE | 2022-05-27 11:30 | PT.IIE ---
Current Diagnoses Stress fracture, hip, unspecified, initial encounter for fracture (05/25/22) Surgery Performed Operation Date: 05/26/22 13:30 Actual Procedures p Hip Hemiarthroplasty(Right) - Lavon Batista MD s ORIF Forearm Fracture(Right) - Lavon Batista MD Surgical History (Last Reviewed 05/27/22 @ 10:37 by Aneudy Kinsey PA-C) H/O: hysterectomy Medical History (Last Reviewed 05/27/22 @ 10:37 by Aneudy Kinsey PA-C) Dementia Glaucoma Hypercholesterolemia Hypertension Hypothyroidism Physical Therapy Inpatient Evaluation/Re-Eval M1 PT/OT-IP Prior Functional Status Start: 05/27/22 12:56 Freq: NEEDED Status: Active Protocol: Document 05/27/22 11:30 AB (Rec: 05/27/22 13:14 AB [id number]) Medical Review Prior Functional Status Medical History Reviewed Yes Communication [place] and with confusion (dx dementia) Mobility and Gait pt unable to provide info Social History Household Members other Living Arrangements Assisted Living Number of Stairs To Enter/Railing? Pt lives at [facility] M2 PT-IP Current Condition Start: 05/27/22 12:56 Freq: NEEDED Status: Active Protocol: Document 05/27/22 11:30 AB (Rec: 05/27/22 13:14 AB [id number]) Physical Therapy Current Condition Current Condition Evaluation Date 05/27/22 Treatment Diagnosis GLF; R hip fx s/p R hip hemiarthroplasty; s/p ORIF R radiusl; diff in walk Onset Date 05/25/22 M3 PT-IP Subjective Start: 05/27/22 12:56 Freq: NEEDED Status: Active Protocol: Document 05/27/22 11:30 AB (Rec: 05/27/22 13:14 AB [email or web address]) Subjective Physical Therapy Visit Type Type Initial Evaluation Visit Start Time 11:30 Visit Stop Time 12:10 Total Visit Minutes 40 Number of FLOOR BROKER Visits 0 Physical Therapy Visit Comments Patient Comments sleepy but cooperative; c/o R hip pain Therapy Pain Assessment Pain When Pain Assessed During Mobility Pain Present Pain Present Pain Reported Location Right Hip Scale Used pain scale not stated M4 PT-IP Mobility and Gait Start: 05/27/22 12:56 Freq: NEEDED Status: Active Protocol: Document 05/27/22 11:30 AB (Rec: 05/27/22 13:14 AB [email or web address]) PT-Bed Mobility Assessment Supine to Sit Supine to Sit Maximum Assistance,2 Person Assistance,Head of Bed Elevated,Bedrails PT-Transfer Assessment Sit to and From Stand Sit to and from Stand Maximum Assistance,Total Assistance,2 Person Assistance ,Use of Upper Extremities Equipment Transfer Assistive Device Gait Belt,Front Wheeled Walker Orthotic/Prosthetic Devices or Brace: No Transfers Transfer Destination Chair Transfer Technique Squat Pivot Transfer Ability Level of Assist Total Assistance,2 Person Assistance,Use of Upper Extremities Comments Mobility Comments pt with dx dementia and unable to consistently follow directions but agreed to get up. completed supine to sit max A x 2 and max cues. pt requires one step commdands with all tasks. pt able to sit on EOB with initial max a and max cues. presnts with increase posterior leaning. cued to correct. positioned pt on EOB and able to sit CGA afterwards. completed sit to stand max A x 2 and max cues. pt only tolerated ~ 7 sec of standing and unable to fully stand upright. assited pt to the chair squat pivot transfer with PT in front of pt assisting and nurse behind pt max A x 2 and max cues.. positioned pt the chair total Ax 2 and max cues . call light and table placed within reach. PT-Balance Assessment Sitting Balance and Reactions Static Sitting Balance Ability Fair Dynamic Sitting Balance Ability Poor Standing Balance and Reactions Static Standing Balance Ability Poor Dynamic Standing Balance Ability Poor Device Used FWW M5 PT-IP Objective Assessments Start: 05/27/22 12:56 Freq: NEEDED Status: Active Protocol: Document 05/27/22 11:30 AB (Rec: 05/27/22 13:14 AB [email or web address]) Orientation Orientation/Cognition Level of Alertness Confusional State Orientation Name Language Function Ability Hard of Hearing Safety Awareness Decreased Safety Awareness Memory Description Short Term Impaired,Project Safety Manager Impaired Gross Range of Motion Lower Extremity ROM Assessment Within Functional Limits Strength Comments Strength Comments LLE: 4-/5 RLE: 3-/5 Muscle Tone Muscle Tone WNL Yes M6 PT-IP Treatment Start: 05/27/22 12:56 Freq: NEEDED Status: Active Protocol: Document 05/27/22 11:30 AB (Rec: 05/27/22 13:14 [email or web address]) Physical Therapy Treatment Education Education Provided Weight Bearing Status,Post-Op Packet,Safety Other Treatments Other Treatment Performed pt unable to understand hip precautions at this time M7 PT-IP Assessment and Plan Start: 05/27/22 12:56 Freq: NEEDED Status: Active Protocol: Document 05/27/22 11:30 AB (Rec: 05/27/22 13:14 AB [id number]) PT Summary Assessment and Plan Potential Rehabilitation Potential Fair Status of Condition at Evaluation Evolving Summary Impairments Pain,ROM,Strength,Balance, Coordination,Sensation,Tone, Cognition,Bed Mobility, Transfers,Gait,Activity Tolerance Assessment Summary pt requiring max A x 2 to totalA x 2 with mobility and will require SNF rehab to improve strength and function. will continue to assess progress. Goals Bed Mobility Goal Minimal Assistance Transfer Goal Minimal Assistance,Front Wheeled Walker Gait Goal Minimal Assistance,Front Wheel Walker Gait Distance 50 Other Goals improve bed mobility, transfers and ambulation using FWW 100 ft SBA Days to Meet Goals 10 Frequency of Treatment Frequency Of Treatment Twice a Day Treatment Plan Physical Therapy Treatment Plan Bed Mobility Training,Transfer Training,Gait Training, Therapeutic Exercise,Balance Retraining,Post Op Education, Discharge Planning,Hot or Cold Pack,Neuromuscular Re-ed, Coordination Retraining,Manual Therapy Precautions Other Precautions falls Weight Bearing Status Allowed Weight Bearing Amount (enter % RLE: WBAT or #) (%) RUE: NWB but may weight bear on FA using platform walker Recommendations To Nursing Amount of Assist Needed Mechanical Lift Discharge Recommendations PT Discharge Recommendations SNF Rehab Transportation Needs at Discharge Wheelchair/Cabulance,Stretcher /Ambulance
--- NOTE | 2022-05-27 12:12 | DIET.CONS2 ---
Dietary Inpatient Consultation Note Admission Date: 05/25/2022 19:03 RD consulted for 82y F s/p surgery to repair hip fracture for MNA score 11 r/t dementia. Per chart review pt lives at [facility] with some assist at home. Pt transferring to memory care facility per family as she is not able to manage in current residence. Pts BMI healthy range. Recc ONS Ensure Original bid to be consumed between meals while hospitalized and upon d/c to support healing of arm and hip fracture. Diet: 05/26/22 Breakfast General (Regular) Diet Diet Modifications: Nutrition Percent Meal Consumed npo 05/26/22 18:00 Electronically Signed by: Linda Leyva 05/27/22 12:12 Clinical Dietitian [address] [address]
--- NOTE | 2022-05-27 13:03 | P.PN_ITS ---
Subjective Subjective Date Patient Seen: 05/27/22 Interval history: Ms. Porras is an 82W with PMH dementia, HTN, hypothyroid who is a direct admit after a fall. She was seen in the ED after a fall on 05/23/22 and had a radial shaft fracture. She was discharged. She fell again and landed on her right hip, she was unable to bear weight. She presented to [facility] and was transferred to [facility] and admitted to orthopedic surgery service. Medicine is consulted to assist with management of her medical issues including dementia and hypertension. She denies complaints today after surgery yesterday. She has not gotten out of bed but pain seems controlled today. Exam Vital Signs (past 8 hours): - 05/27/22 05:57 05/27/22 09:16 05/27/22 09:46 Pulse Rate 69 Blood Pressure 131/47 L Pulse Oximetry 95 Oxygen Delivery Method Room Air Oxygen Flow Rate 0 Oxygen Delivery Method Room Air Oxygen Flow Rate 0 Narrative Exam Narrative: GEN: elderly female, no acute distress. HEENT: moist mucous membranes, PERRL NECK: trachea midline, no JVD PULM: clear bilaterally, no wheezes, rhonchi, rales CV: regular rate and rhythm, no murmurs ABD: soft, nontender, nondistended, no organomegaly, normal bowel sounds EXT: warm and well perfused, no edema NEURO: awake, alert, confused Objective Labs Result Diagrams: 05/27/22 08:28 05/27/22 08:28 Labs: Laboratory Results - last 24 hr 05/26/22 05/26/22 05/27/22 23:10 Unknown 08:28 WBC 8.1 RBC 4.25 Hgb 12.4 Hct 36.8 MCV 86.5 MCH 29.3 MCHC 33.8 RDW 13.1 Plt Count 169 Neut % (Auto) 79.1 H Lymph % (Auto) 8.9 L Miller % (Auto) 10.7 Eos % (Auto) 1.1 L Baso % (Auto) 0.2 Neut # (Auto) 6400 Lymph # (Auto) 700 L Miller # (Auto) 900 Eos # (Auto) 100 Baso # (Auto) 0 Sodium 134 L Potassium 3.9 D 5.8 H D Chloride 103 Carbon Dioxide 20 L BUN 13 Creatinine 0.54 Estimated GFR > 60 BUN/Creatinine Ratio 24.1 H Glucose 90 Calcium 8.1 L Magnesium 05/27/22 08:28 WBC RBC Hgb Hct MCV MCH MCHC RDW Plt Count Neut % (Auto) Lymph % (Auto) Miller % (Auto) Eos % (Auto) Baso % (Auto) Neut # (Auto) Lymph # (Auto) Miller # (Auto) Eos # (Auto) Baso # (Auto) Sodium 134 L Potassium 3.5 Chloride 100 Carbon Dioxide 23 BUN 13 Creatinine 0.46 L Estimated GFR > 60 BUN/Creatinine Ratio 28.3 H Glucose 108 Calcium 7.8 L Magnesium 1.7 PFSH Medical History Dementia Glaucoma Hypercholesterolemia Hypertension Hypothyroidism Surgical History H/O: hysterectomy Social History household members: other Smoking Status: Never smoker alcohol intake: never Assessment & Plan Assessment & Plan narrative: 1. Right displaced and pathologic given mechanism due to osteoporosis femoral neck fracture. -pain medications ordered -POD1 s/p R hemiarthoplasty, 2 week outpatient follow up with [facility] orthopedics recommended. 2. Right displaced ulna fracture -plan per orthopedic surgery 3. Hypertension -continue home medications, HCTZ and metoprolol, good BP control today. 4. Dementia -reorient as able -ativan ordered for anxiety/agitation though no difficulties thus far. 5. Hypothyroidism -continue synthroid 6. HLD - continue home statin 7. Hypokalemia, acute - k 2.7 was given repletion yesterday, improved today. CODE: DNR Proxy: Quinton Collado, daughter I have utilized all available resources to reconcile the patient's home medications Time Spent With Patient Critical Care time: I spent a total of [] minutes of critical care time on this patient's care today; this time is exclusive of procedural time.
--- NOTE | 2022-05-27 13:44 | OT.IP.EVAL ---
Current Diagnoses Stress fracture, hip, unspecified, initial encounter for fracture (05/25/22) Surgery Performed Operation Date: 05/26/22 13:30 Actual Procedures p Hip Hemiarthroplasty(Right) - Lavon Batista MD s ORIF Forearm Fracture(Right) - Lavon Batista MD Past Medical History (Last Reviewed 05/27/22 @ 10:37 by Aneudy Kinsey PA-C) Dementia Glaucoma Hypercholesterolemia Hypertension Hypothyroidism Surgical History (Last Reviewed 05/27/22 @ 10:37 by Aneudy Kinsey PA-C) H/O: hysterectomy Occupational Therapy Inpatient Evaluation/Re-Eval M1 PT/OT-IP Prior Functional Status Start: 05/27/22 12:56 Freq: NEEDED Status: Active Protocol: Document 05/27/22 13:20 [facility] (Rec: 05/27/22 18:27 [facility] [id number]) Medical Review Prior Functional Status Medical History Reviewed Yes Communication [place] and with confusion (dx dementia) Mobility and Gait Per pt's son prior to recent falls able to walk with her 4ww or cane. Activities of Daily Living and IADL's Prior to recent falls pt was able to do all her ADl needs per pt's son. Social History Household Members other Living Arrangements Assisted Living Number of Stairs To Enter/Railing? Pt lives at [facility] Additional Social History Comment Pt has assist for meals, cleaning, medications, and money management needs. M2 OT-IP Current Condition Start: 05/27/22 17:33 Freq: Status: Active Protocol: Document 05/27/22 13:20 [facility] (Rec: 05/27/22 18:27 [facility] [id number]) Occupational Therapy Current Condition Current Condition Evaluation Date 05/27/22 Treatment Diagnosis Right femoral neck fx, S/p R [place], radial shaft fx, s/p ORIF right radial fx Diagnosis Onset Date 05/25/22 Post Operative Precautions Posterior Hip Precautions No Hip Flexion > 90 degrees,No Hip Internal Rotation,No Hip Adduction Other Precautions NWB for RUE but cleared to weight bear on the elbow for platform walker use. M3 OT- IP Subjective and Pain Start: 05/27/22 17:33 Freq: Status: Active Protocol: Document 05/27/22 13:20 [facility] (Rec: 05/27/22 18:27 [facility] [id number]) OT- Subjective Occupational Therapy Visit Type Type Initial Evaluation Visit Start Time 13:20 Visit Stop Time 13:44 Total Visit Minutes 24 Occupational Therapy Visit Comments Patient Comments Pt wanting to get back to bed due to pain. Patient/Caregiver Goals Pt unable to state. OT Pain Assessment Pain When Pain Assessed At Rest Pain Present Pain Present Pain Reported Location Right Hip Pain Behaviors Calling Out,Facial Grimacing, Holding Area,Moaning M4 OT- IP ADL's Start: 05/27/22 17:33 Freq: Status: Active Protocol: Document 05/27/22 13:20 [facility] (Rec: 05/27/22 18:27 [facility] [id number]) OT [id number] Comments OT Self-Feeding Comments Not at meal time. OT ADL-Oral Care Comments Oral Care Comments Not performed as pt just wanting to get back to bed. OT ADL-Dressing Comments OT Dressing Comments Pt dependent for dressing needs at this time. OT ADL-Toileting General Evaluation Toileting Ability Total Assistance OT ADL-Bathing Comments OT Bathing Comments Sponge bathing more appropriate at this time. M5 OT- IP IADL's Start: 05/27/22 17:33 Freq: Status: Active Protocol: Document 05/27/22 13:20 [facility] (Rec: 05/27/22 18:27 [facility] [id number]) OT-Instrumental Activities of Daily Living Deficits IADL Deficits Identified Deficits Home Safety Awareness Awareness of Need for Assistance at Home Decreased Awareness Ability to Problem Solve Emergency Unable to Problem Solve Situations Medication Management Medication Management Caregiver Administers Money Management Money Management Caregiver Provides Assistance Meal Preparation Meal Preparation Caregiver Provides Assist Shovel Oiler Shovel Oiler Caregiver Provides Assist M6 OT- IP Functional Cognition Start: 05/27/22 17:33 Freq: Status: Active Protocol: Document 05/27/22 13:20 [facility] (Rec: 05/27/22 18:27 [facility] [id number]) Cognitive Factors Limiting Selfcare Function Cognitive Ability Level of Alertness Drowsy Patient Orientation Name Ability to Follow Commands Able to Follow One Step Commands with Increased Time, Able to Follow One Step Commands with Repetition Memory Description Short Term Impaired,Working Impaired Cognitive Comments Cognitive Assessment Comments Pt able to follow simple step commands for mobility needs in addition to needing tactile cues. M7 OT- IP Mobility and Balance Start: 05/27/22 17:33 Freq: Status: Active Protocol: Document 05/27/22 13:20 [facility] (Rec: 05/27/22 18:27 [facility] [id number]) OT- Bed Mobility Assessment Sit to Supine Sit to Supine Assist Total Assistance OT-Transfer Assessment Transfers Transfer Ability Total Assistance Technique Transfer Destination Bed,Chair Transfer Technique Mechanical Lift Comments Mobility Comments Jacob lift transfer back to bed. Pt needing MODA to help lean forwards in order to help place the jacob sling on her. OT- Balance Assessment Sitting Balance and Reactions Static Sitting Balance Ability Poor M8 OT- IP Objective Assessments Start: 05/27/22 17:33 Freq: Status: Active Protocol: Document 05/27/22 13:20 [facility] (Rec: 05/27/22 18:27 [facility] [id number]) OT Gross Range of Motion Upper Extremity Range of Motion ROM Impairments not able to assess M9 OT- IP Assessment and Plan Start: 05/27/22 17:33 Freq: Status: Active Protocol: Document 05/27/22 13:20 [facility] (Rec: 05/27/22 18:27 [facility] [id number]) OT Summary Assessment and Plan Potential Rehabilitation Potential Fair Analytic Complexity at Evaluation High Summary OT Impairments Pain,Range of Motion,Strength, Balance,Functional Cognition, Functional Mobility,Self- Feeding,Grooming,Dressing, Toileting,Bathing,Toilet Transfers,Shower Transfers, Activity Tolerance Progress Towards Goals Slow Progress due to Pain,Slow Progress due to Medical Issues,Slow Progress due to Activity Tolerance,Slow Progress due to Cognition Assessment Summary Pt high complexity and multiple falls and fractures. Pt main barriers are pain, decreased strength, balance and needing use of jacob lift transfer at this time for mobility. Pt very drowsy and not able to participate much with OT eval as once placed back in bed fell asleeep immediately. Pt will benefit from skilled rehab to help maximize her level of independence for ADl and mobility needs. Pending progress pt may need LTC. Goals Self-Feeding Goal Standby Assistance Grooming Goal Standby Assistance Dressing Goal Moderate Assistance Toileting Goal Moderate Assistance Bathing Goal Moderate Assistance Toilet Transfer Goal Minimal Assistance Shower Transfer Goal Moderate Assistance Days to Meet Goals 30 Frequency of Treatment Frequency Of Treatment Once a Day Treatment Plan OT Treatment Plan ADL Training,Functional Cognition Training,Functional Mobility,Patient/Family Education,Discharge Planning Other Treatment Recommendations and Next Transfer with platform walker Treatment Focus and MAXA X2 to [facility]. Discharge Recommendations OT Discharge Recommendations SNF Rehab Transportation Needs at Discharge Stretcher/Ambulance
--- NOTE | 2022-05-27 15:39 | CM.DPNOTE ---
Discharge Planning Note: Patient is POD#1 ORIF right radial and R hip hemiarthroplasty. Patient in bed, PHLEBOTOMIST SUPERVISOR/INSTRUCTOR working with her, non-ambulatory at this point. Son Presley and daughter in law Quinton in with patient. We reviewed SNF choices: 1st: [facility], 2nd: [facility], 3rd: [facility]. Son and keysha in law proactive in checking out facilities as well. Sending referrals. Plan: Continue to send and be in touch with SNF referrals. Keep son updated. Chasity Mccann RN/DCP
--- NOTE | 2022-05-27 15:43 | PT.IPTN ---
Current Diagnoses Stress fracture, hip, unspecified, initial encounter for fracture (05/25/22) Surgery Performed Operation Date: 05/26/22 13:30 Actual Procedures p Hip Hemiarthroplasty(Right) - Lavon Batista MD s ORIF Forearm Fracture(Right) - Lavon Batista MD Physical Therapy Treatment Note M2 PT-IP Current Condition Start: 05/27/22 12:56 Freq: NEEDED Status: Active Protocol: Document 05/27/22 11:30 AB (Rec: 05/27/22 13:14 AB [id number]) Physical Therapy Current Condition Current Condition Evaluation Date 05/27/22 Treatment Diagnosis GLF; R hip fx s/p R hip hemiarthroplasty; s/p ORIF R radiusl; diff in walk Onset Date 05/25/22 M3 PT-IP Subjective Start: 05/27/22 12:56 Freq: NEEDED Status: Active Protocol: Document 05/27/22 15:35 [facility] (Rec: 05/27/22 15:43 LJ [id number]) Subjective Physical Therapy Visit Type Type Treatment Note Visit Start Time 15:11 Visit Stop Time 15:35 Total Visit Minutes 24 Number of NURSING ATTENDANT Visits 1 Physical Therapy Visit Comments Patient Comments sleepy but cooperative; family in room Therapy Pain Assessment Pain When Pain Assessed During Mobility Pain Present Pain Present Pain Reported Location Right Hip Scale Used pain scale not stated M4 PT-IP Mobility and Gait Start: 05/27/22 12:56 Freq: NEEDED Status: Active Protocol: Document 05/27/22 15:35 LJ (Rec: 05/27/22 15:43 LJ [id number]) PT-Transfer Assessment Comments Mobility Comments Pt agreed to perform bed exercises. Unwilling to attempt to sit on side of bed. Stated too tired. Therapist assisted pt with all exercises . Gait Assessment Comments Gait Comments unable M5 PT-IP Objective Assessments Start: 05/27/22 12:56 Freq: NEEDED Status: Active Protocol: Document 05/27/22 11:30 AB (Rec: 05/27/22 13:14 AB [id number]) Orientation Orientation/Cognition Level of Alertness Confusional State Orientation Name Language Function Ability Hard of Hearing Safety Awareness Decreased Safety Awareness Memory Description Short Term Impaired,Private Household Worker Impaired Gross Range of Motion Lower Extremity ROM Assessment Within Functional Limits Strength Comments Strength Comments LLE: 4-/5 RLE: 3-/5 Muscle Tone Muscle Tone WNL Yes M6 PT-IP Treatment Start: 05/27/22 12:56 Freq: NEEDED Status: Active Protocol: Document 05/27/22 15:35 [facility] (Rec: 05/27/22 15:43 [id number]) Physical Therapy Treatment Exercises Exercises Ankle Pumps,Gluteal Sets,Heel Slides,Straight Leg Raises, Supine Hip Abduction Education Education Provided Precautions,Weight Bearing Status,Safety Other Treatments Other Treatment Performed pt unable to understand hip precautions at this time. AAROM with all exercises except ankle pumps and heel slides. Pt instructed in abdominal activation with lifting head off pillow and attempting to sit M7 PT-IP Assessment and Plan Start: 05/27/22 12:56 Freq: NEEDED Status: Active Protocol: Document 05/27/22 15:35 [facility] (Rec: 05/27/22 15:43 [id number]) PT Summary Assessment and Plan Potential Rehabilitation Potential Fair Status of Condition at Evaluation Evolving Summary Impairments Pain,ROM,Strength,Balance, Coordination,Sensation,Tone, Cognition,Bed Mobility, Transfers,Gait,Activity Tolerance Assessment Summary Pt cooperative with bed mobility. Unaware of precautions. Will require SNF rehab to improve strength and function. Will continue to assess progress. Goals Bed Mobility Goal Minimal Assistance Transfer Goal Minimal Assistance,Front Wheeled Walker Gait Goal Minimal Assistance,Front Wheel Walker Gait Distance 50 Other Goals improve bed mobility, transfers and ambulation using FWW 100 ft SBA Days to Meet Goals 10 Frequency of Treatment Frequency Of Treatment Twice a Day Treatment Plan Physical Therapy Treatment Plan Bed Mobility Training,Transfer Training,Gait Training, Therapeutic Exercise,Balance Retraining,Post Op Education, Discharge Planning,Hot or Cold Pack,Neuromuscular Re-ed, Coordination Retraining,Manual Therapy Precautions Other Precautions falls Weight Bearing Status Allowed Weight Bearing Amount (enter % RLE: WBAT or #) (%) RUE: NWB but may weight bear on FA using platform walker
[2022-05-27] MEDS: POTASSIUM CHLORIDE 20 MEQ TAB 40 MEQ PO (17:28)
[2022-05-27] MEDS: MAGNESIUM CHLORIDE 64 MG TABLET 128 MG PO (17:28)
[2022-05-27] MEDS: OXYCODONE IR 5 MG TABLET PO (21:24)
[2022-05-27] MEDS: LATANOPROST 0.005% OPHTH 2.5 ML 1 DROPS EYE-BOTH (21:26)
[2022-05-27] MEDS: LORazepam 0.5 MG TABLET PO (23:17)
[2022-05-28] VITALS (16 sets, daily range): BP systolic 104–156; BP diastolic 53–76; PULSE 69–89; RESP 17–28; TEMP 35.6–37.2; O2SAT 87–99; BMI 25.8
--- NOTE | 2022-05-28 | DI.RAD.S_ITS ---
PROCEDURE: XR HIP RT 1V INDICATIONS: RIGHT HIP POST REDUCTION TECHNIQUE: 1 views of the hip were acquired. COMPARISON: [facility], , XR PELVIS 1-2V, 05/28/2022 FINDINGS/IMPRESSION: Fluoroscopic image demonstrating successful reduction of right hip femoral hemiarthroplasty. Dictated by: Jose Washburn M.D. on 05/28/2022 at 18:25 Approved by: Jose Washburn M.D. on 05/28/2022 at 21:00
[2022-05-28 04:51] LABS: Add Manual Diff / Slide Review NO; Basophils Absolute Auto 0 /uL (0-100); Basophils Percent Auto 0.3 % (0-2); Eosinophils Absolute Auto 100 /uL (0-450); Eosinophils Percent Auto 0.9 % (2-4); Hematocrit 37.2 % (36-46); Hemoglobin 12.7 g/dL (12.0-16.0); Lymphocytes Absolute Auto 1300 /uL (1100-4500); Mean Corpuscular Hemoglobin 29.3 PG (26-34); Mean Corpuscular Volume 86.1 fL (80-100); Monocytes Absolute Auto 1000 /uL (0-900); Monocytes Percent Auto 10.5 % (3-14); Neutrophils Absolute Auto 7400 /uL (1500-7000); Neutrophils Percent Auto 75.3 % (50-75); Platelet Count 190 X10^3/uL (150-400); Red Blood Cell Count 4.32 X10^6/uL (4.0-5.2); Red Cell Distribution Width 13.3 % (11.6-14.8); White Blood Cell Count 9.8 X10^3/uL (4.5-11.0)
[2022-05-28 04:53] LABS: BUN Creatinine Ratio 28.6 (6-22); Blood Urea Nitrogen 14 mg/dL (7-17); Calcium 8.1 mg/dL (8.4-10.2); Carbon Dioxide 25 mmol/L (22-32); Chloride 102 mmol/L (98-107); Estimated Glomerular Filt Rate > 60 mL/min (>60); Glucose 112 mg/dL (80-110); HEMOLYSIS < 15 (0-50); Magnesium 1.8 mg/dL (1.6-2.3); Potassium 4.2 mmol/L (3.4-5.1); Sodium 132 mmol/L (137-145)
[2022-05-28] MEDS: ACETAMINOPHEN 325 MG TABLET 650 MG PO ×2 (06:34→20:45)
[2022-05-28] MEDS: LORazepam 0.5 MG TABLET PO (06:35)
[2022-05-28] MEDS: LEVOTHYROXINE 50 MCG TABLET PO (06:35)
[2022-05-28] MEDS: ASPIRIN EC 81 MG TABLET PO ×2 (08:17→20:45)
[2022-05-28] MEDS: POTASSIUM CHLORIDE 10 MEQ TAB PO (08:17)
[2022-05-28] MEDS: SERTRALINE 50 MG TABLET 75 MG PO (08:17)
--- NOTE | 2022-05-28 08:17 | PM.PNPO.1 ---
Subjective Subjective Date Patient Seen: 05/28/22 Time Patient Seen: 08:17 Interval history: 82-year-old female with PMH dementia resting comfortably in bed. Exam Vital Signs (past 8 hours): - 05/28/22 04:00 Temperature 96.1 F L Pulse Rate 89 Respiratory Rate 18 Blood Pressure 156/70 H Pulse Oximetry 93 Oxygen Delivery Method Room Air Oxygen Flow Rate 0 Narrative Exam Narrative: 82-year-old female resting in bed. No apparent distress. Right hip dressing is clean, dry and intact. Right upper extremity is in a splint. Motor functions intact distal right upper extremity. She has good capillary refill. Sensation grossly intact to light touch. Motor functions intact distal right lower extremity. Sensation grossly intact to light touch distal right lower extremity. Const General: comfortable Nutritional Appearance: average body habitus Orientation: confused HENMT Head: normal to inspection Chest Chest: normal inspection of the chest Resp Effort & Inspection: normal respiratory effort Objective Labs Result Diagrams: 05/28/22 04:20 05/28/22 04:20 Labs: Laboratory Results - last 24 hr 05/27/22 05/27/22 05/28/22 08:28 08:28 04:20 WBC 8.1 9.8 RBC 4.25 4.32 Hgb 12.4 12.7 Hct 36.8 37.2 MCV 86.5 86.1 MCH 29.3 29.3 MCHC 33.8 34.0 RDW 13.1 13.3 Plt Count 169 190 Neut % (Auto) 79.1 H 75.3 H Lymph % (Auto) 8.9 L 13.0 L [place] % (Auto) 10.7 10.5 Eos % (Auto) 1.1 L 0.9 L Baso % (Auto) 0.2 0.3 Neut # (Auto) 6400 7400 H Lymph # (Auto) 700 L 1300 [place] # (Auto) 900 1000 H Eos # (Auto) 100 100 Baso # (Auto) 0 0 Sodium 134 L Potassium 3.5 Chloride 100 Carbon Dioxide 23 BUN 13 Creatinine 0.46 L Estimated GFR > 60 BUN/Creatinine Ratio 28.3 H Glucose 108 Calcium 7.8 L Magnesium 1.7 05/28/22 04:20 WBC RBC Hgb Hct MCV MCH MCHC RDW Plt Count Neut % (Auto) Lymph % (Auto) [place] % (Auto) Eos % (Auto) Baso % (Auto) Neut # (Auto) Lymph # (Auto) [place] # (Auto) Eos # (Auto) Baso # (Auto) Sodium 132 L Potassium 4.2 Chloride 102 Carbon Dioxide 25 BUN 14 Creatinine 0.49 L Estimated GFR > 60 BUN/Creatinine Ratio 28.6 H Glucose 112 H Calcium 8.1 L Magnesium 1.8 PFSH Medical History Dementia Glaucoma Hypercholesterolemia Hypertension Hypothyroidism Surgical History H/O: hysterectomy Social History household members: other Smoking Status: Never smoker alcohol intake: never Assessment & Plan Post-op Postoperative Procedures: Procedures Operation Date: 05/26/22 13:30 Actual Procedure Side Surgeon p Hip Hemiarthroplasty Right Lavon Batista MD s ORIF Forearm Fracture Right Lavon Batista MD Postoperative day: 2 Postoperative status narrative: Stable Postoperative plan narrative: PT/OT Weightbear on right upper extremity on her elbow using a platform walker Posterior hip precautions for right hip hemiarthroplasty Follow-up with [facility] in 2 weeks Hypertension, dementia, hypothyroidism, HLD, hypokalemia pain managed by hospitalist Discharge to nursing home facility when bed available
[2022-05-28] MEDS: ATORVASTATIN 20 MG TABLET 40 MG PO (08:18)
[2022-05-28] MEDS: METOPROLOL ER 25 MG TABLET PO (08:18)
[2022-05-28] MEDS: OXYCODONE IR 5 MG TABLET PO ×2 (08:18→23:25)
[2022-05-28] MEDS: SODIUM CHLORIDE 0.9% FLUSH 10 ML IV (08:28)
--- NOTE | 2022-05-28 08:50 | OT.IP.TRT ---
Current Diagnoses Stress fracture, hip, unspecified, initial encounter for fracture (05/25/22) Surgery Performed Operation Date: 05/26/22 13:30 Actual Procedures p Hip Hemiarthroplasty(Right) - Lavon Batista MD s ORIF Forearm Fracture(Right) - Lavon Batista MD Occupational Therapy Treatment Note M2 OT-IP Current Condition Start: 05/27/22 17:33 Freq: Status: Active Protocol: Document 05/27/22 13:20 [facility] (Rec: 05/27/22 18:27 [facility] [id number]) Occupational Therapy Current Condition Current Condition Evaluation Date 05/27/22 Treatment Diagnosis Right femoral neck fx, S/p R [place], radial shaft fx, s/p ORIF right radial fx Diagnosis Onset Date 05/25/22 Post Operative Precautions Posterior Hip Precautions No Hip Flexion > 90 degrees,No Hip Internal Rotation,No Hip Adduction Other Precautions NWB for RUE but cleared to weight bear on the elbow for platform walker use. M3 OT- IP Subjective and Pain Start: 05/27/22 17:33 Freq: Status: Active Protocol: Document 05/28/22 11:13 [facility] (Rec: 05/28/22 11:30 [facility] [id number]) OT- Subjective Occupational Therapy Visit Type Type Treatment Note Visit Start Time 08:50 Visit Stop Time 09:10 Total Visit Minutes 20 Occupational Therapy Visit Comments Patient Comments Pt in lots of pain when OT/MINE ENVIRONMENTAL ENGINEER came to check on the pt. Patient/Caregiver Goals Pt unable to state. OT Pain Assessment Pain When Pain Assessed At Rest Pain Present Pain Present Pain Reported M4 OT- IP ADL's Start: 05/27/22 17:33 Freq: Status: Active Protocol: Document 05/27/22 13:20 [facility] (Rec: 05/27/22 18:27 [facility] [id number]) OT [id number] Comments OT Self-Feeding Comments Not at meal time. OT ADL-Oral Care Comments Oral Care Comments Not performed as pt just wanting to get back to bed. OT ADL-Dressing Comments OT Dressing Comments Pt dependent for dressing needs at this time. OT ADL-Toileting General Evaluation Toileting Ability Total Assistance OT ADL-Bathing Comments OT Bathing Comments Sponge bathing more appropriate at this time. M5 OT- IP IADL's Start: 05/27/22 17:33 Freq: Status: Active Protocol: Document 05/27/22 13:20 [facility] (Rec: 05/27/22 18:27 [facility] [id number]) OT-Instrumental Activities of Daily Living Deficits IADL Deficits Identified Deficits Home Safety Awareness Awareness of Need for Assistance at Home Decreased Awareness Ability to Problem Solve Emergency Unable to Problem Solve Situations Medication Management Medication Management Caregiver Administers Money Management Money Management Caregiver Provides Assistance Meal Preparation Meal Preparation Caregiver Provides Assist Cobbler Apprentice Cobbler Apprentice Caregiver Provides Assist M6 OT- IP Functional Cognition Start: 05/27/22 17:33 Freq: Status: Active Protocol: Document 05/28/22 11:13 [facility] (Rec: 05/28/22 11:30 [facility] [id number]) Cognitive Factors Limiting Selfcare Function Cognitive Ability Level of Alertness Alert,Drowsy Patient Orientation Name Ability to Follow Commands Able to Follow One Step Commands with Increased Time, Able to Follow One Step Commands with Repetition Memory Description Short Term Impaired,Working Impaired Cognitive Comments Cognitive Assessment Comments Pt in lots of pain and having more difficulty to follow commands. M7 OT- IP Mobility and Balance Start: 05/27/22 17:33 Freq: Status: Active Protocol: Document 05/28/22 11:13 [facility] (Rec: 05/28/22 11:30 [facility] [id number]) OT-Transfer Assessment Comments Mobility Comments Pt's RLE in bed internally rotated with knee flexed and complaining of pain. Able to notify nursing and hospitalist of concerns of her right hip . Nurse stated to call Ortho to come and look at her. M8 OT- IP Objective Assessments Start: 05/27/22 17:33 Freq: Status: Active Protocol: Document 05/27/22 13:20 [facility] (Rec: 05/27/22 18:27 [facility] [id number]) OT Gross Range of Motion Upper Extremity Range of Motion ROM Impairments not able to assess M9 OT- IP Assessment and Plan Start: 05/27/22 17:33 Freq: Status: Active Protocol: Document 05/28/22 11:13 [facility] (Rec: 05/28/22 11:30 [facility] [id number]) OT Summary Assessment and Plan Potential Rehabilitation Potential Fair Analytic Complexity at Evaluation High Summary OT Impairments Pain,Range of Motion,Strength, Balance,Functional Cognition, Functional Mobility,Self- Feeding,Grooming,Dressing, Toileting,Bathing,Toilet Transfers,Shower Transfers, Activity Tolerance Progress Towards Goals Slow Progress due to Pain,Slow Progress due to Medical Issues,Slow Progress due to Cognition Assessment Summary Attempted to see the pt with MINE ENVIRONMENTAL ENGINEER and noted that the positioning of her right hip was internally rotated with her knee flexed and in lots of pain. Notified the nurse, and hospitalist. Able to talk to PA in the hallway and Aneudy Kinsey to have an xray ordered for her right hip. Also suggested for pt to have an abductor wedge for positioning needs. Goals Self-Feeding Goal Standby Assistance Grooming Goal Standby Assistance Dressing Goal Moderate Assistance Toileting Goal Moderate Assistance Bathing Goal Moderate Assistance Toilet Transfer Goal Minimal Assistance Shower Transfer Goal Moderate Assistance Days to Meet Goals 30 Frequency of Treatment Frequency Of Treatment Once a Day Treatment Plan OT Treatment Plan ADL Training,Functional Cognition Training,Functional Mobility,Patient/Family Education,Discharge Planning Discharge Recommendations OT Discharge Recommendations SNF Rehab Transportation Needs at Discharge Stretcher/Ambulance
[2022-05-28] MEDS: TIMOLOL 0.5% OPHTH 1 DROPS EYE-BOTH ×2 (10:00→20:44)
--- NOTE | 2022-05-28 10:49 | DI.RAD.S_ITS ---
PROCEDURE: XR PELVIS 1-2V INDICATIONS: shortened RLE, increased pain TECHNIQUE: Single view(s) of the pelvis acquired. COMPARISON: [facility], , XR PELVIS 1-2V, 05/26/2022, 20:05. FINDINGS: Bones: There is dislocation of the right hip arthroplasty. The femoral prosthesis is located superiorly with respect to the acetabulum. Soft tissues: Postoperative changes are present within the soft tissues. IMPRESSION: Right hip dislocation. Dictated by: Smitha Guillen M.D. on 05/28/2022 at 11:44 Approved by: Smitha Guillen M.D. on 05/28/2022 at 11:44
--- NOTE | 2022-05-28 10:57 | PM.PN.1 ---
Subjective Subjective Date Patient Seen: 05/28/22 Interval history: Had lots of kicking overnight due to delirium. This morning right hip was externally rotated and hip XR showed right hip dislocation. She will go back to OR today. Patient currently is somnolent and unable to provide update. Exam Vital Signs (past 8 hours): - 05/28/22 04:00 05/28/22 08:00 Temperature 96.1 F L 97.7 F Pulse Rate 89 73 Respiratory Rate 18 17 Blood Pressure 156/70 H 135/66 Pulse Oximetry 93 93 Oxygen Flow Rate 0 Oxygen Delivery Method Room Air Oxygen Flow Rate 0 Narrative Exam Narrative: GEN: elderly female, no acute distress. HEENT: moist mucous membranes, PERRL NECK: trachea midline, no JVD PULM: clear bilaterally, no wheezes, rhonchi, rales CV: regular rate and rhythm, no murmurs ABD: soft, nontender, nondistended, no organomegaly, normal bowel sounds EXT: warm and well perfused, no edema, right leg externally rotated NEURO: somnolent Objective Labs Result Diagrams: 05/28/22 04:20 05/28/22 04:20 Labs: Laboratory Results - last 24 hr 05/28/22 05/28/22 04:20 04:20 WBC 9.8 RBC 4.32 Hgb 12.7 Hct 37.2 MCV 86.1 MCH 29.3 MCHC 34.0 RDW 13.3 Plt Count 190 Neut % (Auto) 75.3 H Lymph % (Auto) 13.0 L [place] % (Auto) 10.5 Eos % (Auto) 0.9 L Baso % (Auto) 0.3 Neut # (Auto) 7400 H Lymph # (Auto) 1300 [place] # (Auto) 1000 H Eos # (Auto) 100 Baso # (Auto) 0 Sodium 132 L Potassium 4.2 Chloride 102 Carbon Dioxide 25 BUN 14 Creatinine 0.49 L Estimated GFR > 60 BUN/Creatinine Ratio 28.6 H Glucose 112 H Calcium 8.1 L Magnesium 1.8 PFSH Medical History Dementia Glaucoma Hypercholesterolemia Hypertension Hypothyroidism Surgical History H/O: hysterectomy Social History household members: other Smoking Status: Never smoker alcohol intake: never Assessment & Plan Assessment & Plan narrative: 1. Right displaced and pathologic given mechanism due to osteoporosis femoral neck fracture s/p ORIF, now with hip dislocation -pain medications ordered -POD1 s/p R hemiarthoplasty, 2 week outpatient follow up with [facility] recommended. -dislocated hip overnight on 05/28 due to kicking her legs in bed -ortho will take back to OR tonight 2. Right displaced ulna fracture -plan per orthopedic surgery 3. Hypertension -continue home medications, HCTZ and metoprolol, good BP control today. 4. Dementia with superimposed hospital delirium -reorient as able -start seroquel 25mg nightly -haldol PRN 5. Hypothyroidism -continue synthroid 6. HLD - continue home statin 7. Hypokalemia, acute - k 2.7 was given repletion yesterday, improved today. CODE: DNR Proxy: Quinton Collado, daughter Dispo: Pending post-surgical course and likely SNF placement. Time Spent With Patient Critical Care time: I spent a total of [] minutes of critical care time on this patient's care today; this time is exclusive of procedural time.
--- NOTE | 2022-05-28 13:08 | PT-IP ANOTE ---
Pt on hold due to dislocation of prosthesis. Pending surgery possibly later today.
--- NOTE | 2022-05-28 14:48 | CM.DPNOTE ---
DCP Note [facility] has accepted patient for admission, however, patient found to have dislocated her hip so DC cancelled CM team will plan to follow closely JW
[2022-05-28] MEDS: HYDROMORPHONE 0.5 MG INJ IV (15:14)
--- NOTE | 2022-05-28 15:34 | PM.PREOP ---
Pre-operative Note COVID-19 COVID-19 status: Negative Result date/Date tested (Pos, Neg/Pending): 05/25/22 Interval Note History & Physical reviewed/Exam performed by Physician: Yes Changes to H&P: Yes H&P completed within 30 days and has changed as indicated here:: The patient was found in her room today with her right leg shortened and internally rotated. Radiographs have confirmed a dislocation of the prosthetic. We are preparing for closed reduction of the dislocation with possible open reduction if needed.
--- NOTE | 2022-05-28 15:47 | PC.NURSE ---
Addendum entered by Chani Bush R.N. 05/28/22 17:28: Pt returned from PACU to Room 221 at [id number], she is arouseable and says thank you for helping me then immediately drifts back to sleep. Son at bedside. offered sips of ensure but she is to somnolent. Gardner in place. Abbductor pillow placed between legs. VSS, afebrile on RA set on post op VS per protocol. q 2 turning, bed alarm in place. Original Note: Pt is extremely hard of hearing and confused this a.m. Per previous shift patient had at times called out but then stated she wasn't in pain, and night nurse administered prn lorazepam this a.m. She is awakened briefly for a.m. medications, and to participate in PT/OT. She hollars out in pain and noted that R LE was more inverted than previous day and she is unable to participate in exercise that she was yesterday. Ortho PA notified of concerns and R hip xray obtained. Pt kept NPO immediately after breakfast and only had eaten a few bites of egg, sips of ensure and o.j. She is fairly somnulent during the afternoon. Per PA patient scheduled to go to OR this afternoon for reduction of her R hip under anesthesia. She is transported by bed at approximately 1540 this afternoon.
[2022-05-28 15:58] LABS: COVID19 -Nasal RAPID Negative (Negative)
--- NOTE | 2022-05-28 16:34 | PM.OP.1 ---
Operative Date/Time/Diagnoses Date of procedure: 05/28/22 Time of procedure: 16:34 Pre-op diagnosis: Dislocated right hip hemiarthroplasty Post-op diagnosis: same Procedure & Clinicians Procedure: Closed reduction of dislocated right hip hemiarthroplasty Same procedure as scheduled: Yes Indications: The patient is an 82-year-old woman with dementia who underwent a hemiarthroplasty for femoral neck fracture 2 days ago. She has not been compliant with her postoperative restrictions due to her dementia and was found in her hospital bed with her leg abducted shortened and internally rotated. Her son Presley who holds durable power of document review attorney has given consent over the phone for a closed reduction with open reduction if necessary. Surgeon: Lavon Batista Click Yes if Unassisted: Yes Anesthesia Type: General Operative Notes Findings: Concentric reduction without trauma. Closure Type: not applicable Specimen(s): none sent Estimated Blood Loss (mL): 0 Blood products transfused: none Procedure in detail: The patient was seen in the preoperative area. Consent was obtained over the phone from her son. Her right hip was identified as the operative site by the bandage and by the shortening and internal rotation of the extremity. She was taken to the operating room and transferred onto the operating room table. She underwent the induction of a mask general anesthetic with significant propofol sedation. Her hip was relocated with traction, flexion, internal rotation. This was followed by extension, neutralization of the rotation and abduction. There was an atraumatic reduction of the hip. Concentric reduction was verified on fluoroscopy. An abduction pillow was then placed. She was taken to recovery room in good condition having tolerated the procedure well. Complications: none Post-operative Condition: stable Disposition: PACU Plan for aftercare: The patient will be maintained in the abduction pillow at all times except physical therapy. She will be returned to the hospital floor where [facility]
[2022-05-28] MEDS: SODIUM CHLORIDE 0.9% 1,000 ML 100 ML IV (20:39)
[2022-05-28] MEDS: LATANOPROST 0.005% OPHTH 2.5 ML 1 DROPS EYE-BOTH (20:44)
[2022-05-28] MEDS: QUETIAPINE 25 MG TABLET PO (20:45)
[2022-05-29 00:05] VITALS: BP 113/69; PULSE 116; RESP 20; TEMP 36.7; O2SAT 95
[2022-05-29 03:50] VITALS: BP 160/67; PULSE 67; RESP 18; TEMP 36.7; O2SAT 97
[2022-05-29] MEDS: ACETAMINOPHEN 325 MG TABLET 650 MG PO ×2 (05:07→10:51)
[2022-05-29] MEDS: OXYCODONE IR 5 MG TABLET PO ×2 (05:08→10:51)
[2022-05-29] MEDS: LEVOTHYROXINE 50 MCG TABLET PO (06:08)
[2022-05-29 06:41] LABS: BUN Creatinine Ratio 31.7 (6-22); Blood Urea Nitrogen 13 mg/dL (7-17); Calcium 7.9 mg/dL (8.4-10.2); Carbon Dioxide 25 mmol/L (22-32); Chloride 102 mmol/L (98-107); Estimated Glomerular Filt Rate > 60 mL/min (>60); Glucose 81 mg/dL (80-110); HEMOLYSIS 19 (0-50); Magnesium 1.9 mg/dL (1.6-2.3); Potassium 4.1 mmol/L (3.4-5.1); Sodium 134 mmol/L (137-145)
[2022-05-29 07:00] VITALS: BP 124/49; PULSE 65; RESP 16; TEMP 36.2; O2SAT 94
[2022-05-29 07:13] LABS: Add Manual Diff / Slide Review NO; Basophils Percent Auto 0.5 % (0-2); Eosinophils Percent Auto 3.5 % (2-4); Hematocrit 35.2 % (36-46); Hemoglobin 11.8 g/dL (12.0-16.0); Lymphocytes Percent Auto 18.6 % (25-40); Mean Corpuscular HGB Conc 33.5 % (30-36); Mean Corpuscular Hemoglobin 29.2 PG (26-34); Mean Corpuscular Volume 87.1 fL (80-100); Monocytes Percent Auto 10.9 % (3-14); Neutrophils Percent Auto 66.5 % (50-75); Platelet Count 199 X10^3/uL (150-400); Red Blood Cell Count 4.03 X10^6/uL (4.0-5.2); Red Cell Distribution Width 13.5 % (11.6-14.8); White Blood Cell Count 8.3 X10^3/uL (4.5-11.0)
[2022-05-29 07:14] LABS: Basophils Absolute Auto 0 /uL (0-100); Eosinophils Absolute Auto 300 /uL (0-450); Lymphocytes Absolute Auto 1500 /uL (1100-4500); Monocytes Absolute Auto 900 /uL (0-900); Neutrophils Absolute Auto 5500 /uL (1500-7000)
--- NOTE | 2022-05-29 07:23 | PC.NURSE ---
Patient A & O x 1, very confused, yells out at times. Very [place], Unable to read simple phrases. Patient restless at times but did not try to get OOB. Abductor wedge in place. Slept on and off. During the night patient unable to drink from a straw and needed assistance drinking from a small cup. Patient able to drink from a straw this am. Tylenol and Oxycodone 5 mg given x 2 with good relief of pain. Son at bedside at this time.
--- NOTE | 2022-05-29 08:47 | P.PN_ITS ---
Exam Vital Signs (past 8 hours): - 05/29/22 03:50 05/29/22 07:00 Temperature 98.1 F Pulse Rate 67 Respiratory Rate 18 Blood Pressure 160/67 H Pulse Oximetry 97 94 Oxygen Delivery Method Room Air Oxygen Flow Rate 0 Oxygen Delivery Method Room Air Oxygen Flow Rate 0 Narrative Exam Narrative: GEN: elderly female, no acute distress. HEENT: moist mucous membranes, PERRL NECK: trachea midline, no JVD PULM: clear bilaterally, no wheezes, rhonchi, rales CV: regular rate and rhythm, no murmurs ABD: soft, nontender, nondistended, no organomegaly, normal bowel sounds EXT: warm and well perfused, no edema, right leg externally rotated NEURO: somnolent Objective Labs Result Diagrams: 05/29/22 05:49 05/29/22 05:49 Labs: Laboratory Results - last 24 hr 05/28/22 05/29/22 05/29/22 15:36 04:25 05:49 WBC Cancelled RBC Cancelled Hgb Cancelled Hct Cancelled MCV Cancelled MCH Cancelled MCHC Cancelled RDW Cancelled Plt Count Cancelled Neut % (Auto) Cancelled Lymph % (Auto) Cancelled [place] % (Auto) Cancelled Eos % (Auto) Cancelled Baso % (Auto) Cancelled Neut # (Auto) Cancelled Lymph # (Auto) Cancelled [place] # (Auto) Cancelled Eos # (Auto) Cancelled Baso # (Auto) Cancelled Sodium 134 L Potassium 4.1 Chloride 102 Carbon Dioxide 25 BUN 13 Creatinine 0.41 L Estimated GFR > 60 BUN/Creatinine Ratio 31.7 H Glucose 81 Calcium 7.9 L Magnesium 1.9 SARS-CoV-2 (PCR) Negative 05/29/22 05:49 WBC 8.3 RBC 4.03 Hgb 11.8 L Hct 35.2 L MCV 87.1 MCH 29.2 MCHC 33.5 RDW 13.5 Plt Count 199 Neut % (Auto) 66.5 Lymph % (Auto) 18.6 L [place] % (Auto) 10.9 Eos % (Auto) 3.5 Baso % (Auto) 0.5 Neut # (Auto) 5500 Lymph # (Auto) 1500 [place] # (Auto) 900 Eos # (Auto) 300 Baso # (Auto) 0 Sodium Potassium Chloride Carbon Dioxide BUN Creatinine Estimated GFR BUN/Creatinine Ratio Glucose Calcium Magnesium SARS-CoV-2 (PCR) PFSH Medical History Dementia Glaucoma Hypercholesterolemia Hypertension Hypothyroidism Surgical History H/O: hysterectomy Social History household members: other Smoking Status: Never smoker alcohol intake: never Assessment & Plan Assessment & Plan narrative: 1. Right displaced and pathologic given mechanism due to osteoporosis femoral neck fracture s/p ORIF, now with hip dislocation -pain medications ordered -POD1 s/p R hemiarthoplasty, 2 week outpatient follow up with [facility] orthopedics recommended. -dislocated hip overnight on 05/28 due to kicking her legs in bed -ortho will take back to OR tonight 2. Right displaced ulna fracture -plan per orthopedic surgery 3. Hypertension -continue home medications, HCTZ and metoprolol, good BP control today. 4. Dementia with superimposed hospital delirium -reorient as able -start seroquel 25mg nightly -haldol PRN 5. Hypothyroidism -continue synthroid 6. HLD - continue home statin 7. Hypokalemia, acute - k 2.7 was given repletion yesterday, improved today. CODE: DNR Proxy: Quinton Collado, daughter Dispo: Pending post-surgical course and likely SNF placement. Time Spent With Patient Critical Care time: I spent a total of [] minutes of critical care time on this patient's care today; this time is exclusive of procedural time.
[2022-05-29] MEDS: ATORVASTATIN 20 MG TABLET 40 MG PO (09:02)
[2022-05-29] MEDS: METOPROLOL ER 25 MG TABLET PO (09:03)
[2022-05-29] MEDS: SERTRALINE 50 MG TABLET 75 MG PO (09:03)
[2022-05-29] MEDS: POTASSIUM CHLORIDE 10 MEQ TAB PO (09:03)
[2022-05-29] MEDS: ASPIRIN EC 81 MG TABLET PO (09:03)
[2022-05-29 10:48] VITALS: PULSE 82
[2022-05-29] MEDS: TIMOLOL 0.5% OPHTH 1 DROPS EYE-BOTH (11:30)
--- NOTE | 2022-05-29 11:34 | CM.DPNOTE ---
Called for BLS transport for [id number] from [facility] to bring pt. to [place]. Brandy Gutiérrez CM Assist.
--- NOTE | 2022-05-29 12:05 | PT.IPRE ---
Current Diagnoses Stress fracture, hip, unspecified, initial encounter for fracture (05/25/22) Surgery Performed Operation Date: 05/26/22 13:30 Actual Procedures p Hip Hemiarthroplasty(Right) - Lavon Batista MD s ORIF Forearm Fracture(Right) - Lavon Batista MD Operation Date: 05/28/22 15:30 Actual Procedures p Closed Reduction Dislocated Hip(Right) - Lavon Batista MD Surgical History (Last Reviewed 05/29/22 @ 13:13 by Aneudy Kinsey PA-C) H/O: hysterectomy Medical History (Last Reviewed 05/29/22 @ 13:13 by Aneudy Kinsey PA-C) Dementia Glaucoma Hypercholesterolemia Hypertension Hypothyroidism Physical Therapy Inpatient Evaluation/Re-Eval M1 PT/OT-IP Prior Functional Status Start: 05/27/22 12:56 Freq: NEEDED Status: Active Protocol: Document 05/27/22 13:20 [facility] (Rec: 05/27/22 18:27 [facility] [id number]) Medical Review Prior Functional Status Medical History Reviewed Yes Communication [place] and with confusion (dx dementia) Mobility and Gait Per pt's son prior to recent falls able to walk with her 4ww or cane. Activities of Daily Living and IADL's Prior to recent falls pt was able to do all her ADl needs per pt's son. Social History Household Members other Living Arrangements Assisted Living Number of Stairs To Enter/Railing? Pt lives at [facility] Additional Social History Comment Pt has assist for meals, cleaning, medications, and money management needs. M2 PT-IP Current Condition Start: 05/27/22 12:56 Freq: NEEDED Status: Active Protocol: Document 05/27/22 11:30 AB (Rec: 05/27/22 13:14 AB [id number]) Physical Therapy Current Condition Current Condition Evaluation Date 05/27/22 Treatment Diagnosis GLF; R hip fx s/p R hip hemiarthroplasty; s/p ORIF R radiusl; diff in walk Onset Date 05/25/22 M3 PT-IP Subjective Start: 05/27/22 12:56 Freq: NEEDED Status: Active Protocol: Document 05/29/22 12:05 AB (Rec: 05/29/22 13:34 AB [id number]) Subjective Physical Therapy Visit Type Type Re-Evaluation Visit Start Time 12:05 Visit Stop Time 12:30 Total Visit Minutes 25 Number of TRAINING PROFESSIONAL Visits 0 Physical Therapy Visit Comments Patient Comments continue to have confusion ( dx dementia) M4 PT-IP Mobility and Gait Start: 05/27/22 12:56 Freq: NEEDED Status: Active Protocol: Document 05/29/22 12:05 AB (Rec: 05/29/22 13:34 AB [id number]) PT-Bed Mobility Assessment Supine to Sit Supine to Sit Maximum Assistance,1 Person Assistance,Head of Bed Elevated,Bedrails Scooting Scooting to Edge of Bed Moderate Assistance PT-Transfer Assessment Sit to and From Stand Sit to and from Stand Maximum Assistance,2 Person Assistance,Use of Upper Extremities Equipment Transfer Assistive Device Gait Belt,Platform Walker Orthotic/Prosthetic Devices or Brace: No Transfers Transfer Destination Chair Transfer Technique Stand Step Pivot Transfer Ability Level of Assist Maximum Assistance,2 Person Assistance,Use of Upper Extremities Comments Mobility Comments Pt s/p R hip hemiarthroplasty last 05/26/22 but found to have a hip dislocation yesterday and underwent closed reduction under anesthesia yesterday. pt with confusion. pt redirected and agreed to get up. pt unable to comprehend hip precautions. completed supine to sit max A and max cues. needs assist to keep prevent RLE adduction and IR during movement. pt requiring mod A for scooting to EOB and repeated cues/ directions to complete tasks. pt completed sit to stand max A x 2 and max cues. completed step transfer using platform walker to chair max A x 2 and max cues. pt needs step by step cues to complete task. positioned pt on the chair. call light and table placed within reach. PT-Balance Assessment Sitting Balance and Reactions Static Sitting Balance Ability Good Dynamic Sitting Balance Ability Fair Standing Balance and Reactions Static Standing Balance Ability Poor Dynamic Standing Balance Ability Poor Device Used PFW M5 PT-IP Objective Assessments Start: 05/27/22 12:56 Freq: NEEDED Status: Active Protocol: Document 05/27/22 11:30 AB (Rec: 05/27/22 13:14 AB [id number]) Orientation Orientation/Cognition Level of Alertness Confusional State Orientation Name Language Function Ability Hard of Hearing Safety Awareness Decreased Safety Awareness Memory Description Short Term Impaired,Long-Term Impaired Gross Range of Motion Lower Extremity ROM Assessment Within Functional Limits Strength Comments Strength Comments LLE: 4-/5 RLE: 3-/5 Muscle Tone Muscle Tone WNL Yes M6 PT-IP Treatment Start: 05/27/22 12:56 Freq: NEEDED Status: Active Protocol: Document 05/29/22 12:05 AB (Rec: 05/29/22 13:34 AB [email or web address]) Physical Therapy Treatment Education Education Provided Precautions,Weight Bearing Status,Safety M7 PT-IP Assessment and Plan Start: 05/27/22 12:56 Freq: NEEDED Status: Active Protocol: Document 05/29/22 12:05 AB (Rec: 05/29/22 13:34 AB [email or web address]) PT Summary Assessment and Plan Potential Rehabilitation Potential Fair Status of Condition at Evaluation Evolving Summary Impairments Pain,ROM,Strength,Balance, Coordination,Sensation,Tone, Cognition,Bed Mobility, Transfers,Gait,Activity Tolerance Assessment Summary Pt s/p R hip hemiarthroplasty 05/26/22 and found to have a dislocated hip yesterday and underwent closed reduction under anesthesia yesterday. Pt also has a R radial fx and has a soft cast on. pt requiring max A x 2 with step transfer using PFW and max cues with all tasks. pt will require SNF rehab to improve mobility. Goals Bed Mobility Goal Standby Assistance Transfer Goal Minimal Assistance,Front Wheeled Walker Gait Goal Minimal Assistance,Front Wheel Walker Gait Distance 50 Other Goals improve bed mobility, transfers and ambulation using PFW 100 ft SBA Days to Meet Goals 10 Frequency of Treatment Frequency Of Treatment Twice a Day Treatment Plan Physical Therapy Treatment Plan Bed Mobility Training,Transfer Training,Gait Training, Therapeutic Exercise,Balance Retraining,Post Op Education, Discharge Planning,Hot or Cold Pack,Neuromuscular Re-ed, Coordination Retraining,Manual Therapy Precautions Other Precautions falls Weight Bearing Status Allowed Weight Bearing Amount (enter % RLE: WBAT or #) (%) RUE: NWB but may weight bear on FA using platform walker Recommendations To Nursing Amount of Assist Needed Mechanical Lift Discharge Recommendations PT Discharge Recommendations SNF Rehab Transportation Needs at Discharge Wheelchair/Cabulance,Stretcher /Ambulance
--- NOTE | 2022-05-29 12:10 | PM.DS.1 ---
History of Present Illness History of Present Illness Date Patient Seen: 05/29/22 Time Patient Seen: 12:11 Chief complaint: INPT DIRECT ADMIT Narrative: Sweetie is an 82-year-old woman with a history of dementia. She lives at an assisted living home in [place]. She is had 2 recent falls. She was seen in the emergency room on May 23 where a radial shaft fracture was diagnosed. She was sent home in a splint with instructions to call our office for follow-up. She subsequently had a 2nd fall landing on her right hip and was unable to rise. Radiographs there have shown a displaced femoral neck fracture. She is been transferred to [facility] from [facility] for definitive management of these fractures. Discharge Providers Provider Date of admission: 05/25/22 19:03 Discharge Date: 05/29/22 Primary care physician: Doctor Vicky MD Consults: 05/25/22 20:53 Consult to Dietitian, Adult Routine Comment: Reason For Exam: MNA = 11 05/25/22 21:19 Consult to Hospitalist Service Routine Comment: Consulting Provider: Lavon Batista Reason for consultation: medical coverage after hip and forearm fracture fixation Has provider been notified: Yes 05/26/22 22:32 Consult to Discharge Planning Routine Comment: Consult to Physical Therapy Evaluate & Treat Comment: Platform walker for right arm, can WB on elbow Physician Instructions: post op [place] protocol 05/27/22 12:15 Consult to Occupational Therapy Evaluate & Treat Comment: Physician Instructions: Evaluate and treat Discharge provider: Sagar Morales DO Summary Hospital Course Discharge Diagnosis: 1. Right displaced and pathologic given mechanism due to osteoporosis femoral neck fracture s/p ORIF, now with hip dislocation -pain medications ordered -POD1 s/p R hemiarthoplasty, 2 week outpatient follow up with [facility] orthopedics recommended. -dislocated hip overnight on 05/27-05/28 due to kicking her legs in bed -ortho took back to OR on 05/28 and fixed hip -abduction pillow now in place 2. Right displaced ulna fracture -wrapped in splint and no surgery indicated per ortho 3. Hypertension -continue home metoprolol, good BP control -stopped HCTZ on discharge due to hyponatremia 4. Dementia with superimposed hospital delirium -reorient as able -started seroquel 25mg nightly with good effect 5. Hypothyroidism -continue synthroid 6. HLD - continue home statin 7. Hypokalemia, acute - k 2.7 was given repletion yesterday, improved today. - discharged on 20mEq K po daily Time Spent with Patient Time spent: Greater than 30 minutes Exam Vital Signs (past 8 hours): - 05/29/22 07:00 05/29/22 07:00 05/29/22 10:48 Temperature 97.2 F L Pulse Rate 65 82 Respiratory Rate 16 Blood Pressure 124/49 L Pulse Oximetry 94 94 Oxygen Delivery Method Room Air Oxygen Flow Rate 0 Oxygen Delivery Method Room Air Oxygen Flow Rate 0 Narrative Exam Narrative: GEN: elderly female, no acute distress. Demented. HEENT: moist mucous membranes, PERRL NECK: trachea midline, no JVD PULM: clear bilaterally, no wheezes, rhonchi, rales CV: regular rate and rhythm, no murmurs ABD: soft, nontender, nondistended, no organomegaly, normal bowel sounds EXT: warm and well perfused, no edema NEURO: no focal deficits Objective Labs Result Diagrams: 05/29/22 05:49 05/29/22 05:49 Labs: Laboratory Results - last 24 hr 05/28/22 05/29/22 05/29/22 15:36 04:25 05:49 WBC Cancelled RBC Cancelled Hgb Cancelled Hct Cancelled MCV Cancelled MCH Cancelled MCHC Cancelled RDW Cancelled Plt Count Cancelled Neut % (Auto) Cancelled Lymph % (Auto) Cancelled Bath % (Auto) Cancelled Eos % (Auto) Cancelled Baso % (Auto) Cancelled Neut # (Auto) Cancelled Lymph # (Auto) Cancelled Bath # (Auto) Cancelled Eos # (Auto) Cancelled Baso # (Auto) Cancelled Sodium 134 L Potassium 4.1 Chloride 102 Carbon Dioxide 25 BUN 13 Creatinine 0.41 L Estimated GFR > 60 BUN/Creatinine Ratio 31.7 H Glucose 81 Calcium 7.9 L Magnesium 1.9 SARS-CoV-2 (PCR) Negative 05/29/22 05:49 WBC 8.3 RBC 4.03 Hgb 11.8 L Hct 35.2 L MCV 87.1 MCH 29.2 MCHC 33.5 RDW 13.5 Plt Count 199 Neut % (Auto) 66.5 Lymph % (Auto) 18.6 L Bath % (Auto) 10.9 Eos % (Auto) 3.5 Baso % (Auto) 0.5 Neut # (Auto) 5500 Lymph # (Auto) 1500 Bath # (Auto) 900 Eos # (Auto) 300 Baso # (Auto) 0 Sodium Potassium Chloride Carbon Dioxide BUN Creatinine Estimated GFR BUN/Creatinine Ratio Glucose Calcium Magnesium SARS-CoV-2 (PCR) PFSH Medical History Dementia Glaucoma Hypercholesterolemia Hypertension Hypothyroidism Surgical History H/O: hysterectomy Social History household members: other Smoking Status: Never smoker alcohol intake: never Discharge Plan Discharge Plan Patient Disposition: [facility] Discharge orders & Medications Prescriptions: New aspirin 81 mg Tablet,Delayed Release (Dr/Ec) 81 mg PO BID 42 Days Qty: 84 0RF quetiapine 25 mg Tablet 25 mg PO BEDTIME Qty: 30 0RF oxycodone 5 mg Tablet 5 mg PO Q4HR PRN (Reason: Pain, Moderate (4-6)) Qty: 30 0RF potassium chloride 20 mEq tablet extended release 20 meq PO DAILY Qty: 60 0RF Continued latanoprost 0.005 % Drops 1 drp OPHTHALMIC (EYE) BEDTIME Rx Instructions: both eyes atorvastatin 40 mg Tablet 40 mg PO DAILY loperamide 2 mg Capsule 2 mg PO QID PRN (Reason: Diarrhea) levothyroxine 50 mcg Tablet 50 mcg PO DAILY timolol 0.5 % Drops 1 drp OPHTHALMIC (EYE) BID Rx Instructions: both eyes docusate sodium 100 mg Capsule 100 mg PO DAILY PRN (Reason: Constipation) sertraline 50 mg Tablet 75 mg PO DAILY acetaminophen 500 mg Capsule 500 mg PO Q6H PRN (Reason: pain) senna 8.6 mg Capsule 8.6 mg PO DAILY PRN (Reason: Constipation) metoprolol succinate 25 mg Capsule,Sprinkle,Er 24hr 25 mg PO DAILY Discontinued potassium chloride [Klor-Con 10] 10 mEq Tablet Extended Release 10 meq PO DAILY hydrochlorothiazide 12.5 mg Capsule 12.5 mg PO DAILY Follow up/Referrals: Miscellaneous,Doctor, MD [Primary Care Provider] - Visit Report/Discharge Packet Stand Alone Forms: Patient Portal/API Discharge Data Primary Care Provider: Miscellaneous,Doctor
--- NOTE | 2022-05-29 12:29 | P.PN_ITS ---
Subjective Subjective Date Patient Seen: 05/29/22 Time Patient Seen: 12:30 Interval history: Seroquel seemed to work well overnight as patient did not have agitation. She is at her baseline this morning of dementia. Son is at bedside, and when asked who he is she states that's my ex-. Exam Vital Signs (past 8 hours): - 05/29/22 07:00 05/29/22 07:00 05/29/22 10:48 Temperature 97.2 F L Pulse Rate 65 82 Respiratory Rate 16 Blood Pressure 124/49 L Pulse Oximetry 94 94 Oxygen Delivery Method Room Air Oxygen Flow Rate 0 Oxygen Delivery Method Room Air Oxygen Flow Rate 0 Narrative Exam Narrative: GEN: elderly female, no acute distress. HEENT: moist mucous membranes, PERRL NECK: trachea midline, no JVD PULM: clear bilaterally, no wheezes, rhonchi, rales CV: regular rate and rhythm, no murmurs ABD: soft, nontender, nondistended, no organomegaly, normal bowel sounds EXT: warm and well perfused, no edema, right leg externally rotated NEURO: somnolent Objective Labs Result Diagrams: 05/29/22 05:49 05/29/22 05:49 Labs: Laboratory Results - last 24 hr 05/28/22 05/29/22 05/29/22 15:36 04:25 05:49 WBC Cancelled RBC Cancelled Hgb Cancelled Hct Cancelled MCV Cancelled MCH Cancelled MCHC Cancelled RDW Cancelled Plt Count Cancelled Neut % (Auto) Cancelled Lymph % (Auto) Cancelled Falls % (Auto) Cancelled Eos % (Auto) Cancelled Baso % (Auto) Cancelled Neut # (Auto) Cancelled Lymph # (Auto) Cancelled Falls # (Auto) Cancelled Eos # (Auto) Cancelled Baso # (Auto) Cancelled Sodium 134 L Potassium 4.1 Chloride 102 Carbon Dioxide 25 BUN 13 Creatinine 0.41 L Estimated GFR > 60 BUN/Creatinine Ratio 31.7 H Glucose 81 Calcium 7.9 L Magnesium 1.9 SARS-CoV-2 (PCR) Negative 05/29/22 05:49 WBC 8.3 RBC 4.03 Hgb 11.8 L Hct 35.2 L MCV 87.1 MCH 29.2 MCHC 33.5 RDW 13.5 Plt Count 199 Neut % (Auto) 66.5 Lymph % (Auto) 18.6 L Falls % (Auto) 10.9 Eos % (Auto) 3.5 Baso % (Auto) 0.5 Neut # (Auto) 5500 Lymph # (Auto) 1500 Falls # (Auto) 900 Eos # (Auto) 300 Baso # (Auto) 0 Sodium Potassium Chloride Carbon Dioxide BUN Creatinine Estimated GFR BUN/Creatinine Ratio Glucose Calcium Magnesium SARS-CoV-2 (PCR) PFSH Medical History Dementia Glaucoma Hypercholesterolemia Hypertension Hypothyroidism Surgical History H/O: hysterectomy Social History household members: other Smoking Status: Never smoker alcohol intake: never Assessment & Plan Assessment & Plan narrative: 1. Right displaced and pathologic given mechanism due to osteoporosis femoral neck fracture s/p ORIF, now with hip dislocation -pain medications ordered -POD1 s/p R hemiarthoplasty, 2 week outpatient follow up with [facility] orthopedics recommended. -dislocated hip overnight on 05/27-05/28 due to kicking her legs in bed -ortho took back to OR on 05/28 and fixed hip -abduction pillow now in place -SNF recs per ortho 2. Right displaced ulna fracture -wrapped in splint and no surgery indicated per ortho 3. Hypertension -continue home metoprolol -stopped HCTZ on discharge due to hyponatremia 4. Dementia with superimposed hospital delirium -reorient as able -started seroquel 25mg nightly with good effect -would discharge with seroquel to use at SNF while she is there 5. Hypothyroidism -continue synthroid 6. HLD - continue home statin 7. Hypokalemia, acute - k 2.7 was given repletion yesterday, improved today. - discharged on 20mEq K po daily Medicine will sign off today. Thank you for allowing us to participate in the care of this patient. Should you have any further questions, do not hesitate to speak with us directly or call us. Time Spent With Patient Critical Care time: I spent a total of [] minutes of critical care time on this patient's care today; this time is exclusive of procedural time.
--- NOTE | 2022-05-29 12:51 | P.DS_ITS ---
History of Present Illness History of Present Illness Date Patient Seen: 05/29/22 Time Patient Seen: 13:07 Chief complaint: Hip pain Narrative: 82-year-old female with dementia sitting comfortably in bedside chair. Son is at bedside. Discharge Providers Provider Date of admission: 05/25/22 19:03 Discharge Date: 05/29/22 Primary care physician: Doctor Vicky MD Consults: 05/25/22 20:53 Consult to Dietitian, Adult Routine Comment: Reason For Exam: MNA = 11 05/25/22 21:19 Consult to Hospitalist Service Routine Comment: Consulting Provider: Lavon Batista Reason for consultation: medical coverage after hip and forearm fracture fixation Has provider been notified: Yes 05/26/22 22:32 Consult to Discharge Planning Routine Comment: Consult to Physical Therapy Evaluate & Treat Comment: Platform walker for right arm, can WB on elbow Physician Instructions: post op [place] protocol 05/27/22 12:15 Consult to Occupational Therapy Evaluate & Treat Comment: Physician Instructions: Evaluate and treat Discharge provider: Aneudy Kinsey PA-C Summary Hospital Course Discharge Diagnosis: Status post right hip hemiarthroplasty May 26, 2022 Open reduction internal fixation right radial shaft fracture, May 26, 2022 Closed reduction dislocated right hip hemiarthroplasty May 28, 2022 Hospital Course: 1. Right hip hemiarthroplasty 2. Open reduction internal fixation of right radial shaft fracture. Same procedure as scheduled: Yes Indications: The patient is an 82-year-old woman who has had several falls recently.? She suffered a radial shaft fracture several days ago and then yesterday suffered a hip fracture.? She is been admitted to the hospital for treatment of these fractures.? Her son who holds durable power of tax associate attorney has given consent after discussion the risks benefits and alternatives as documented in my history and physical. Surgeon: Lavon Batista Health Unit Coordinator: Shari Cortez Click Yes if Unassisted: No Anesthesia Type: General and Local Operative Notes Findings: Displaced femoral neck and radial shaft fractures significant comminution of the radial shaft fracture. Closure Type: primary Specimen(s): none sent Prosthetic devices, grafts, tissues, transplants, or devices: Implants used in this procedure were manufactured by the [employer] for the hip and included a size 10 synergy cemented stem with a 45 mm tandem unipolar femoral head with a +0 neck sleeve and a 9 mm distal cement centralizer.? In addition a [employer] canal plug was used.? With respect to the radial fracture a [employer] small frag 3.5 mm 7 hole dynamic compression plate with 3 14 mm, 2 16 mm and 2 18 mm screws were used. Applied: cast(s) and implant(s) Estimated Blood Loss (mL): 150 Blood products transfused: none Tourniquet time (min): 47 Due to her dementia patient has not been compliant with her postop restrictions. Patient was found to have shortened and internally rotated right leg yesterday May 28, 2022. X-rays confirmed dislocated right hip hemiarthroplasty. Patient was consented May 28, 2022 and was taken to the operating room for closed reduction of dislocated right hip hemiarthroplasty. Reduction was accomplished. Reduction verified on fluoro. Abduction pillow placed. Patient returned to her room in stable condition. Patient has progressed. Hospitalist feels that she is stable for nursing home facility. Patient will be maintained in the abduction pillow at all times except during physical therapy. She will be allowed to weight bear on the right upper extremity on her elbow using a platform walker and will be on posterior hip precautions for her hip hemiarthroplasty. Discharge to nursing home facility today. Status at Discharge Cognitive/behavioral status at discharge: confused Functional status at discharge: uses cane/walker Overall status at discharge: patient is progressing back to baseline Exam Vital Signs (past 8 hours): - 05/29/22 07:00 05/29/22 07:00 05/29/22 10:48 Temperature 97.2 F L Pulse Rate 65 82 Respiratory Rate 16 Blood Pressure 124/49 L Pulse Oximetry 94 94 Oxygen Delivery Method Room Air Oxygen Flow Rate 0 Oxygen Delivery Method Room Air Oxygen Flow Rate 0 Narrative Exam Narrative: 82-year-old female sitting comfortably in bedside chair in no apparent distress. Abduction pillow in place. Catheter in place. Right upper extremity is in a splint. Motor functions intact distal right upper extremity. She has good capillary refill. Motor functions intact distal right upper extremity. Right hip incision is clean, dry and intact. Motor functions intact distal right lower extremity. Sensation grossly intact to light touch right lower extremity. Const General: comfortable Nutritional Appearance: average body habitus Orientation: confused HENMT Head: normal to inspection Chest Chest: normal inspection of the chest Resp Effort & Inspection: normal respiratory effort Objective Labs Result Diagrams: 05/29/22 05:49 05/29/22 05:49 Labs: Laboratory Results - last 24 hr 05/28/22 05/29/22 05/29/22 15:36 04:25 05:49 WBC Cancelled RBC Cancelled Hgb Cancelled Hct Cancelled MCV Cancelled MCH Cancelled MCHC Cancelled RDW Cancelled Plt Count Cancelled Neut % (Auto) Cancelled Lymph % (Auto) Cancelled [place] % (Auto) Cancelled Eos % (Auto) Cancelled Baso % (Auto) Cancelled Neut # (Auto) Cancelled Lymph # (Auto) Cancelled [place] # (Auto) Cancelled Eos # (Auto) Cancelled Baso # (Auto) Cancelled Sodium 134 L Potassium 4.1 Chloride 102 Carbon Dioxide 25 BUN 13 Creatinine 0.41 L Estimated GFR > 60 BUN/Creatinine Ratio 31.7 H Glucose 81 Calcium 7.9 L Magnesium 1.9 SARS-CoV-2 (PCR) Negative 05/29/22 05:49 WBC 8.3 RBC 4.03 Hgb 11.8 L Hct 35.2 L MCV 87.1 MCH 29.2 MCHC 33.5 RDW 13.5 Plt Count 199 Neut % (Auto) 66.5 Lymph % (Auto) 18.6 L [place] % (Auto) 10.9 Eos % (Auto) 3.5 Baso % (Auto) 0.5 Neut # (Auto) 5500 Lymph # (Auto) 1500 [place] # (Auto) 900 Eos # (Auto) 300 Baso # (Auto) 0 Sodium Potassium Chloride Carbon Dioxide BUN Creatinine Estimated GFR BUN/Creatinine Ratio Glucose Calcium Magnesium SARS-CoV-2 (PCR) [facility] Medical History Dementia Glaucoma Hypercholesterolemia Hypertension Hypothyroidism Surgical History H/O: hysterectomy Social History household members: other Smoking Status: Never smoker alcohol intake: never Discharge Assessment & Plan Assessment and Plan Assessment: Patient is stable status post right hip hemiarthroplasty, open reduction internal fixation right radial shaft fracture with closed reduction of right hip hemiarthroplasty on May 28, 2022. Plan of Treatment: PT/OT She will be allowed to weight bear on the right upper extremity on her elbow using a platform walker and will be on posterior hip precautions for her hip hemiarthroplasty. The patient will be maintained in the abduction pillow at all times except physical therapy. Multimodal pain management Follow-up with [facility] in 2 weeks Discharge to nursing home facility today. Discharge Plan Discharge Plan Patient Disposition: SNF Transfer to: [facility] Consult as needed: Mental health Discharge orders & Medications Prescriptions: New aspirin 81 mg Tablet,Delayed Release (Dr/Ec) 81 mg PO BID 42 Days Qty: 84 0RF quetiapine 25 mg Tablet 25 mg PO BEDTIME Qty: 30 0RF oxycodone 5 mg Tablet 5 mg PO Q4HR PRN (Reason: Pain, Moderate (4-6)) Qty: 30 0RF potassium chloride 20 mEq tablet extended release 20 meq PO DAILY Qty: 60 0RF Continued latanoprost 0.005 % Drops 1 drp OPHTHALMIC (EYE) BEDTIME Rx Instructions: both eyes atorvastatin 40 mg Tablet 40 mg PO DAILY loperamide 2 mg Capsule 2 mg PO QID PRN (Reason: Diarrhea) levothyroxine 50 mcg Tablet 50 mcg PO DAILY timolol 0.5 % Drops 1 drp OPHTHALMIC (EYE) BID Rx Instructions: both eyes docusate sodium 100 mg Capsule 100 mg PO DAILY PRN (Reason: Constipation) sertraline 50 mg Tablet 75 mg PO DAILY acetaminophen 500 mg Capsule 500 mg PO Q6H PRN (Reason: pain) senna 8.6 mg Capsule 8.6 mg PO DAILY PRN (Reason: Constipation) metoprolol succinate 25 mg Capsule,Sprinkle,Er 24hr 25 mg PO DAILY Discontinued potassium chloride [Klor-Con 10] 10 mEq Tablet Extended Release 10 meq PO DAILY hydrochlorothiazide 12.5 mg Capsule 12.5 mg PO DAILY Follow up/Referrals: Miscellaneous,DoctorMD [Primary Care Provider] - Lavon Batista MD [Physician] - (Follow-up in [address] Batista or MARIELLA) Discharge Health Status Multidrug resistant organism: No MDRO Diet/Activity/Treatments Diet: Diet as Tolerated Activity: The patient will be maintained in the abduction pillow at all times except physical therapy. Cold/Heat Therapy: Ice to hip as needed Skin/Wound/Dressing Care Report to your healthcare provider any signs of infection, such as:: chills, fever, night sweats, increased pain, unusual drainage and unusual redness Dressing: Keep dressing clean and dry [facility] Rehabilitation Services Reason for rehabilitation: Post-operative therapy Rehab type: Physical therapy and Occupational therapy Restrictions to mobility: The patient will be maintained in the abduction pillow at all times except physical therapy. Visit Report/Discharge Packet Instructions: DI for Hip Replacement, DI for Open Reduction Internal Fixation Surgery, DI for Prescription Opioid Use Stand Alone Forms: Patient Portal/API, Surgery Discharge Discharge Data Primary Care Provider: Miscellaneous,Doctor
--- NOTE | 2022-05-29 13:03 | OT.IPNOTE ---
Pt eating lunch and getting emotional but able to distract the pt by talking to her. Pt still just orientated to name and not able to recall any hip precautions at this time. Pt being discharged to today for skilled rehab.
--- NOTE | 2022-05-29 14:12 | CM.DPNOTE ---
DC Note Patient medically stable for DC today; [facility]nn at [facility] accepts for admission COVID PCR updated yesterday Spoke w/patient's POA/DIL Quinton P [phone] who is appreciative and agreeable to plan. Son Presley also in agreement and at bedside today. According to family- patient will likely discharge from SNF to [facility] memory care FESTUS Nava, kindly faxed completed and signed Rx, DC Summary and PASRR to [facility]. RN report by FABY Llamas to FABY Zuniga. Transport via BLS per therapy recs for safety, scheduled for p/u between [id number] P DC to [facility] via BLS JW
--- NOTE | 2022-05-29 14:33 | PT.IPTN ---
Current Diagnoses Stress fracture, hip, unspecified, initial encounter for fracture (05/25/22) Surgery Performed Operation Date: 05/26/22 13:30 Actual Procedures p Hip Hemiarthroplasty(Right) - Lavon Batista MD s ORIF Forearm Fracture(Right) - Lavon Batista MD Operation Date: 05/28/22 15:30 Actual Procedures p Closed Reduction Dislocated Hip(Right) - Lavon Batista MD Physical Therapy Treatment Note M2 PT-IP Current Condition Start: 05/27/22 12:56 Freq: NEEDED Status: Discharge Protocol: Document 05/29/22 14:15 SP (Rec: 05/29/22 16:32 SP [id number]) Physical Therapy Current Condition Current Condition Evaluation Date 05/27/22 Treatment Diagnosis GLF; R hip fx s/p R hip hemiarthroplasty; s/p ORIF R radiusl; diff in walk Onset Date 05/25/22 M3 PT-IP Subjective Start: 05/27/22 12:56 Freq: NEEDED Status: Discharge Protocol: Document 05/29/22 14:15 SP (Rec: 05/29/22 16:32 SP [id number]) Subjective Physical Therapy Visit Type Type Treatment Note Visit Start Time 14:15 Visit Stop Time 14:33 Total Visit Minutes 23 Notes Son in room when arrived. Transportation arrived when talking to pt. Nursing staff asked assist for tranferring pt to [facility]. Number of INDUSTRIAL/ORGANIZATIONAL PSYCHOLOGIST Visits 1 Physical Therapy Visit Comments Patient Comments Dx Dementia, I don't want to go. Therapy Pain Assessment Pain When Pain Assessed During Mobility Pain Present Pain Present Pain Reported Location Right Hip Scale Used elevated pain scale not stated Pain Behaviors Calling Out,Facial Grimacing, Guarding,Moaning,Wincing Pain Management Techniques Distraction,Modification of Treatment,Re-positioning, Timing of Activity with Medications M4 PT-IP Mobility and Gait Start: 05/27/22 12:56 Freq: NEEDED Status: Discharge Protocol: Document 05/29/22 14:15 SP (Rec: 05/29/22 16:32 SP [id number]) PT-Transfer Assessment Sit to and From Stand Sit to and from Stand Maximum Assistance,2 Person Assistance,Use of Upper Extremities Equipment Transfer Assistive Device Gait Belt,Platform Walker Orthotic/Prosthetic Devices or Brace: No Transfers Transfer Technique STS front chair/swap out chair for gerney Transfer Ability Level of Assist Maximum Assistance,2 Person Assistance,Use of Upper Extremities Comments Mobility Comments Pt reported having pain with thought of mobility, pt didn't understand option with pain having: STS/ SPT w/ PFWW vs Jacob. INDUSTRIAL/ORGANIZATIONAL PSYCHOLOGIST assisted pt scoot to front chair, hand over hand use chair arms, STS w/ PFWW, pt self RUE placement on platform/LUE push from chair arm, Max A x2 come to full stand. Pt unableto reposition BLEs, ocean forwarder/ son swapped out chair for gerney to sit on, cues for upright posture into stand. Mod A x2 to sit on gerney, seated on EO gerney SBA LUE support self little, sit>supine Max A x2 trunk support and BLEs onto gerney, positioned abductor wedge between BLEs for alignment precautions. ocean forwarder took over care. Gait Assessment Comments Gait Comments unable to progress further than STS front chair. Stair Climbing Assessment Comments Stair Climbing Comments no stairs need to assess. PT-Balance Assessment Sitting Balance and Reactions Static Sitting Balance Ability Good Dynamic Sitting Balance Ability Fair Standing Balance and Reactions Static Standing Balance Ability Poor Dynamic Standing Balance Ability Poor Device Used PFW M5 PT-IP Objective Assessments Start: 05/27/22 12:56 Freq: NEEDED Status: Discharge Protocol: Document 05/27/22 11:30 AB (Rec: 05/27/22 13:14 AB [id number]) Orientation Orientation/Cognition Level of Alertness Confusional State Orientation Name Language Function Ability Hard of Hearing Safety Awareness Decreased Safety Awareness Memory Description Short Term Impaired,Technician Chemical Cleaning Impaired Gross Range of Motion Lower Extremity ROM Assessment Within Functional Limits Strength Comments Strength Comments LLE: 4-/5 RLE: 3-/5 Muscle Tone Muscle Tone WNL Yes M6 PT-IP Treatment Start: 05/27/22 12:56 Freq: NEEDED Status: Discharge Protocol: Document 05/29/22 14:15 SP (Rec: 05/29/22 16:32 SP [id number]) Physical Therapy Treatment Education Education Provided Precautions,Weight Bearing Status,Safety Other Treatments Other Treatment Performed pt unable to understand importance of hip position and unable to tolerate movement M7 PT-IP Assessment and Plan Start: 05/27/22 12:56 Freq: NEEDED Status: Discharge Protocol: Document 05/29/22 14:15 SP (Rec: 05/29/22 16:32 SP [id number]) PT Summary Assessment and Plan Potential Rehabilitation Potential Fair Status of Condition at Evaluation Evolving Summary Impairments Pain,ROM,Strength,Balance, Coordination,Sensation,Tone, Cognition,Bed Mobility, Transfers,Gait,Activity Tolerance Progress Towards Goals Slow Progress due to Pain,Slow Progress due to Activity Tolerance Assessment Summary max A x2 w/ PFWW, unable progress further than STS w/ PFWW and swap out chair/ gerney for transportation. Pt is ableto sit up in chair LEs reclined when arrived. Pt requires SNF for progression functional strength/ mobility. Goals Bed Mobility Goal Standby Assistance Transfer Goal Minimal Assistance,Front Wheeled Walker Gait Goal Minimal Assistance,Front Wheel Walker Gait Distance 50 Other Goals improve bed mobility, transfers and ambulation using PFW 100 ft SBA Days to Meet Goals 10 Frequency of Treatment Frequency Of Treatment Twice a Day Treatment Plan Physical Therapy Treatment Plan Bed Mobility Training,Transfer Training,Gait Training, Therapeutic Exercise,Balance Retraining,Post Op Education, Discharge Planning,Hot or Cold Pack,Neuromuscular Re-ed, Coordination Retraining,Manual Therapy Other Recommendations and Next Treatment bed mob, post op ex, sit Focus balance activities, standing tolerance, transfers if able w / PFWW (R). Precautions Other Precautions falls Weight Bearing Status Allowed Weight Bearing Amount (enter % RLE: WBAT or #) (%) RUE: NWB but may weight bear on FA using platform walker Recommendations To Nursing Amount of Assist Needed Mechanical Lift Discharge Recommendations PT Discharge Recommendations SNF Rehab Transportation Needs at Discharge Wheelchair/Cabulance,Stretcher /Ambulance
== END 2022-05-29 14:50 | DRG 522 ==
PROVIDERS: Internal Medicine; Admitting Provider Orthopaedic Surgery; Referring Provider Orthopaedic Surgery; Visit Provider Orthopaedic Surgery
PROC: 0SRR0JZ Replacement of Right Hip Joint, Femoral Surface with Synthetic Substitute, Open Approach (ICD-10-PCS; CPT 27125; principal; 2022-05-26 13:30)
PROC: 0SRR039 Replacement of Right Hip Joint, Femoral Surface with Ceramic Synthetic Substitute, Cemented, Open Approach (ICD-10-PCS; 2022-05-26 13:30)
PROC: 0SWRXJZ Revision of Synthetic Substitute in Right Hip Joint, Femoral Surface, External Approach (ICD-10-PCS; principal; 2022-05-28 15:30)
DX: S72.001A Fracture of unspecified part of neck of right femur, initial encounter for closed fracture (principal); S73.004A Unspecified dislocation of right hip, initial encounter; S52.351A Displaced comminuted fracture of shaft of radius, right arm, initial encounter for closed fracture; F05 Delirium due to known physiological condition; M54.9 Dorsalgia, unspecified; R29.6 Repeated falls; F03.90 Unspecified dementia, unspecified severity, without behavioral disturbance, psychotic disturbance, mood disturbance, and anxiety; I10 Essential (primary) hypertension; E03.9 Hypothyroidism, unspecified; E78.5 Hyperlipidemia, unspecified; E87.6 Hypokalemia; H40.9 Unspecified glaucoma; X58.XXXA Exposure to other specified factors, initial encounter; W18.30XA Fall on same level, unspecified, initial encounter; Z66 Do not resuscitate; Z20.822 Contact with and (suspected) exposure to COVID-19
CPT/HCPCS: 29125; 36415; 70450; 72125; 72128; 72131; 72170; 73090; 73110; 73501; 73502; 76000; 80048; 83735; 84132; 85025; 87635; 97110; 97162; 97164; 97167; 97530; 99284; C1776; C9803; J0690; J1170; J2060; J2250; J2405; J2704; J3010

== ENCOUNTER 2022-06-10 12:28 | Inpatient (IN) | payer MEDICARE, OTHER, SELFPAY ==
[2022-06-10] VITALS (8 sets, daily range): BP systolic 125–147; BP diastolic 47–65; PULSE 58–108; RESP 15–18; TEMP 36.1–37.2; O2SAT 97–99; BMI 23.1
--- NOTE | 2022-06-10 14:04 | P.HP_ITS ---
History of Present Illness History of Present Illness Date Patient Seen: 06/10/22 Time Patient Seen: 14:30 Chief complaint: Right hip pain, right hip dislocation Narrative: Please see prior outside H & P from today, scanned in Patient History Medical History Dementia Glaucoma Hypercholesterolemia Hypertension Hypothyroidism Surgical History H/O: hysterectomy Family & Social History Social History: household members other Prior Living Arrangements Skilled Nurse Facility Tobacco & Substance use: Smoking Status Never smoker alcohol intake never Substance Use Type does not use Meds Home Medications and Allergies Home Medications Medication Instructions Recorded Confirmed Type acetaminophen 500 mg capsule 500 mg PO Q6H PRN pain 05/25/22 06/10/22 History atorvastatin 40 mg tablet 40 mg PO DAILY 05/25/22 06/10/22 History docusate sodium 100 mg capsule 100 mg PO DAILY PRN Constipation 05/25/22 06/10/22 History latanoprost 0.005 % eye drops 1 drp ophthalmic (eye) BEDTIME 05/25/22 06/10/22 History levothyroxine 50 mcg tablet 50 mcg PO DAILY 05/25/22 06/10/22 History metoprolol succinate 25 mg capsule 25 mg PO DAILY 05/25/22 06/10/22 History sprinkle, ext. release 24 hr sennosides 8.6 mg capsule (senna) 8.6 mg PO DAILY PRN Constipation 05/25/22 06/10/22 History sertraline 50 mg tablet 75 mg PO DAILY 05/25/22 06/10/22 History timolol 0.5 % eye drops 1 drp ophthalmic (eye) BID 05/25/22 06/10/22 History oxycodone 5 mg tablet 5 mg PO Q4HR PRN Pain, Moderate 05/29/22 06/10/22 Rx (4-6) #30 tabs potassium chloride 20 mEq 20 meq PO DAILY #60 tabs 05/29/22 06/10/22 Rx tablet,extended release quetiapine 25 mg tablet 25 mg PO BEDTIME #30 tabs 05/29/22 06/10/22 Rx Allergies Allergy/AdvReac Type Severity Reaction Status Date / Time morphine AdvReac Severe Vomiting Verified 12/30/22 13:08 Exam Narrative Exam Narrative: Pleasant but very deaf 82-year-old female, resting comfortably in bed, no acute distress. Her son is at bedside. Lungs are clear to auscultation bilaterally. Heart has regular rate and rhythm, no murmurs rubs or gallops are appreciated. Please see additional physical exam from scanned in H & P today Assessment & Plan Assessment & Plan narrative: -status post right hip hemiarthroplasty with recurrent dislocations -dementia -plan: OR today for closed reduction of her right hip NPO, strict -IV pain medications as needed Time Spent With Patient Critical Care time: I spent a total of [] minutes of critical care time on this patient's care to day; this time is exclusive of procedural time. Quality VTE Deep Vein Thrombosis/Pulmonary Embolism Present on Admission: No
[2022-06-10] MEDS: HYDROMORPHONE 0.5 MG INJ 0.2 MG IV (14:11)
[2022-06-10] MEDS: CEFAZOLIN 2 GM/100 ML PREMIX 100 ML IV (14:37)
[2022-06-10 16:43] LABS: COVID19 - ADMIT (NP swab/PCR) Negative (Negative)
--- NOTE | 2022-06-10 17:02 | SUR.OPER ---
Supine on padded OR bed, head on pillow, arms secured on padded arm boards at <90 degrees abduction, legs uncrossed, safety belt at thigh, tape over blanket over lower legs.
--- NOTE | 2022-06-10 17:20 | PC.NURSE ---
Late entry- Patient off unit to OR.
--- NOTE | 2022-06-10 17:42 | PM.OP.1 ---
Operative Date/Time/Diagnoses Date of procedure: 06/10/22 Time of procedure: 17:10 Pre-op diagnosis: Right prosthetic hip dislocation Post-op diagnosis: same Procedure & Clinicians Procedure: Closed reduction of right hip hemiarthroplasty Same procedure as scheduled: Yes Indications: The patient is an 82-year-old woman who on May 25, 2022 underwent a right hip hemiarthroplasty. She suffered her 1st dislocation 3 days later. She has dementia and is unable to retain her postoperative hip precautions. She underwent a closed reduction was placed in an abduction splint. She did well after discharge and was ambulating independently. She had recently been transferred to a memory care facility. It is not clear they were using the abduction wedge. She attempted to rise on her own from the dining room table and dislocated her hip getting up from a low chair. She was seen at [facility] where reduction was attempted and allegedly completed although x-rays are not available. She presented to follow-up in my office today with a dislocation of her right hip. She is taken to the operating room for repeat closed reduction after discussion the risks benefits and alternatives with her son who holds durable power of deputy prosecuting attorney. Surgeon: Lavon Batista Click Yes if Unassisted: Yes Anesthesia Type: Sedation Operative Notes Findings: Atraumatic reduction with flexion, internal rotation 80 duction and traction. Closure Type: not applicable Specimen(s): none sent Procedure in detail: The patient was taken to the operating room on her hospital bed where she underwent the induction of deep sedation with propofol. She was then transferred to the operating room table. A time-out was performed confirming the operative hip. The hip was relocated with flexion, adduction internal rotation and traction with counter pressure on her anterior superior iliac spine. A palpable clunk occurred with relocation of the hip. The leg was then brought to extension, neutral rotation and abduction. Fluoroscopic views were obtained confirming reduction. In addition, a fluoroscopic view of both hips at the same time was obtained which indicated that the lesser trochanter on the operative right side was actually about a cm long compared to the lesser trochanter on the normal side. An abduction pillow was placed, the patient was placed in her hospital bed and transferred to the recovery room in good condition having tolerated procedure well. Complications: none Post-operative Condition: stable Disposition: PACU Plan for aftercare: The patient will be maintained strictly in her abduction wedge until an abduction brace is available from the prosthetics and orthotics providers. This will be set to limit her abduction at 30? and to allow flexion no further than 70?. Once this is available she will be discharged to long-term or the memory care center as appropriate.
[2022-06-10] MEDS: TIMOLOL 0.5% OPHTH 1 DROPS EYE-BOTH (23:10)
[2022-06-10] MEDS: LATANOPROST 0.005% OPHTH 2.5 ML 1 DROPS EYE-BOTH (23:11)
[2022-06-10] MEDS: ACETAMINOPHEN 325 MG TABLET 650 MG PO (23:11)
[2022-06-10] MEDS: OXYCODONE IR 5 MG TABLET PO (23:11)
[2022-06-10] MEDS: QUETIAPINE 25 MG TABLET PO (23:11)
[2022-06-10] MEDS: ASPIRIN EC 81 MG TABLET PO (23:12)
[2022-06-10] MEDS: DOCUSATE 100 MG CAPSULE PO (23:12)
[2022-06-11 05:15] VITALS: BP 133/64; PULSE 79; RESP 16; TEMP 36; O2SAT 90
--- NOTE | 2022-06-11 08:20 | P.PN_ITS ---
Subjective Subjective Date Patient Seen: 06/11/22 Time Patient Seen: 08:20 Interval history: 82-year-old female with dementia resting comfortably in bed in no apparent distress. Exam Vital Signs (past 8 hours): - 06/11/22 05:15 Temperature 96.8 F L Pulse Rate 79 Respiratory Rate 16 Blood Pressure 133/64 Pulse Oximetry 90 L Oxygen Flow Rate 0 Oxygen Delivery Method Room Air Oxygen Flow Rate 0 Narrative Exam Narrative: Resting in bed in no apparent distress. Motor functions intact bilateral lower extremities. Sensation grossly intact light touch. Abduction wedge in place Const General: comfortable Nutritional Appearance: average body habitus Objective Labs Labs: Laboratory Results - last 24 hr 06/10/22 15:30 SARS-CoV-2 (PCR) Negative PFSH Medical History Dementia Glaucoma Hypercholesterolemia Hypertension Hypothyroidism Surgical History H/O: hysterectomy Social History household members: other Smoking Status: Never smoker alcohol intake: never Assessment & Plan Post-op Postoperative Procedures: Procedures Operation Date: 06/10/22 16:30 Actual Procedure Side Surgeon p Closed Reduction Dislocated Hip Right Lavon Batista MD Postoperative day: 1 Postoperative status narrative: Status post closed reduction right hip hemiarthroplasty June 10, 2022, status post right hip hemiarthroplasty May 25, 2022. Postoperative plan narrative: The patient will be maintained strictly in her abduction wedge until an abduction brace is available. [facility] will deliver brace this morning. Abduction brace will be set to limit her abduction at 30? and to allow flexion no further than 70?. Once fitted with brace she will be discharged to prison or the memory care center as appropriate. Follow-up with Dr. Batista in 2 weeks. Quality VTE Deep Vein Thrombosis/Pulmonary Embolism Present on Admission: No
[2022-06-11 08:25] VITALS: BP 120/52; PULSE 60
[2022-06-11] MEDS: METOPROLOL ER 25 MG TABLET PO (08:25)
[2022-06-11] MEDS: POTASSIUM CHLORIDE 20 MEQ TAB PO (08:29)
[2022-06-11] MEDS: ASPIRIN EC 81 MG TABLET PO (08:29)
[2022-06-11] MEDS: DOCUSATE 100 MG CAPSULE PO (08:29)
[2022-06-11] MEDS: ATORVASTATIN 20 MG TABLET 40 MG PO (08:29)
[2022-06-11] MEDS: SERTRALINE 50 MG TABLET 75 MG PO (08:30)
[2022-06-11] MEDS: TIMOLOL 0.5% OPHTH 1 DROPS EYE-BOTH (08:42)
[2022-06-11 08:55] VITALS: PULSE 60
[2022-06-11 08:56] VITALS: BP 120/52; PULSE 57; RESP 16; TEMP 36.2; O2SAT 96
[2022-06-11 09:14] LABS: Hematocrit 30.4 % (36-46); Hemoglobin 10.6 g/dL (12.0-16.0)
--- NOTE | 2022-06-11 10:58 | CM.DPNOTE ---
Called [facility] for BLS transport to [facility], per Chasity for 1330 tile picker. Brandy Gutiérrez CM Assist.
--- NOTE | 2022-06-11 11:08 | PM.DS.1 ---
History of Present Illness History of Present Illness Date Patient Seen: 06/11/22 Time Patient Seen: 11:09 Chief complaint: Right hip pain, right hip dislocation Narrative: See progress note Discharge Providers Provider Date of admission: 06/10/22 12:28 Discharge Date: 06/11/22 Primary care physician: Doctor Vicky MD Consults: 06/10/22 18:18 Consult to Discharge Planning Routine Comment: Abduction brace at all times, SNF vs.dementia care Consult to Physical Therapy Evaluate & Treat Comment: Needs abduction splint, 70 deg max flexion, 30 deg Physician Instructions: post op [place] protocol 06/11/22 08:48 Consult to Occupational Therapy Evaluate & Treat Comment: Physician Instructions: Evaluate and treat Discharge provider: Aneudy Kinsey PA-C Summary Hospital Course Discharge Diagnosis: Right prosthetic hip dislocation Hospital Course: Closed reduction of right hip hemiarthroplasty Same procedure as scheduled: Yes Indications: The patient is an 82-year-old woman who on May 25, 2022 underwent a right hip hemiarthroplasty.? She suffered her 1st dislocation 3 days later.? She has dementia and is unable to retain her postoperative hip precautions.? She underwent a closed reduction was placed in an abduction splint.? She did well after discharge and was ambulating independently.? She had recently been transferred to a memory care facility.? It is not clear they were using the abduction wedge.? She attempted to rise on her own from the dining room table and dislocated her hip getting up from a low chair.? She was seen at [facility] where reduction was attempted and allegedly completed although x-rays are not available.? She presented to follow-up in my office today with a dislocation of her right hip.? She is taken to the operating room for repeat closed reduction after discussion the risks benefits and alternatives with her son who holds durable power of associate attorney. Surgeon: Lavon Batista Click Yes if Unassisted: Yes Anesthesia Type: Sedation Operative Notes Findings: Atraumatic reduction with flexion, internal rotation 80 duction and traction. Closure Type: not applicable Specimen(s): none sent Patient admitted for right prosthetic hip dislocation she is status post right hip hemiarthroplasty May 25, 2022. Patient originally discharged on May 29, 2022. She returned on June 10 and found to have right prosthetic hip dislocation. She underwent closed reduction of right hip hemiarthroplasty on May 31, 2022. Back patient back in her room recovering well as in stable condition. She has been fitted with an abduction brace.This will be set to limit her abduction at 30? and to allow flexion no further than 70?. [facility] be [facility] [place] today. She will follow up in Orthopedics in 2 weeks for recheck. Status at Discharge Cognitive/behavioral status at discharge: confused Overall status at discharge: patient is progressing back to baseline Exam Vital Signs (past 8 hours): - 06/11/22 05:15 06/11/22 08:25 06/11/22 08:56 Temperature 96.8 F L 97.2 F L Pulse Rate 79 60 57 L Respiratory Rate 16 16 Blood Pressure 133/64 120/52 L 120/52 L Pulse Oximetry 90 L 96 Oxygen Delivery Method Oxygen Flow Rate 0 06/11/22 08:00 Temperature Pulse Rate Respiratory Rate Blood Pressure Pulse Oximetry Oxygen Delivery Method Room Air Oxygen Flow Rate Oxygen Delivery Method Room Air Oxygen Flow Rate 0 Narrative Exam Narrative: See progress note Objective Labs Result Diagrams: 06/11/22 09:02 Labs: Laboratory Results - last 24 hr 06/10/22 06/11/22 15:30 09:02 Hgb 10.6 L Hct 30.4 L SARS-CoV-2 (PCR) Negative PFSH Medical History Dementia Glaucoma Hypercholesterolemia Hypertension Hypothyroidism Surgical History H/O: hysterectomy Social History household members: other Smoking Status: Never smoker alcohol intake: never Discharge Assessment & Plan Assessment and Plan Assessment: Stable status post closed reduction right hip hemiarthroplasty Plan of Treatment: Multimodal pain management Aspirin for DVT prophylaxis Abduction brace will be set to limit her abduction at 30? and to allow flexion no further than 70? Follow-up with Dr. Batista in 2 weeks Discharge to home [facility] today. Discharge Plan Discharge Plan Patient Disposition: Assisted Living Other facility: [facility] Discharge orders & Medications Discharge Orders: Discharge (Order); Ordered 06/11/22 Ordered By: Aneudy Kinsey Prescriptions: New aspirin 81 mg Tablet,Delayed Release (Dr/Ec) 81 mg PO BID Qty: 60 0RF oxycodone 5 mg Tablet 5 mg PO Q3HR PRN (Reason: Pain, Moderate (4-6)) Qty: 30 0RF Continued latanoprost 0.005 % Drops 1 drp OPHTHALMIC (EYE) BEDTIME Rx Instructions: both eyes atorvastatin 40 mg Tablet 40 mg PO DAILY levothyroxine 50 mcg Tablet 50 mcg PO DAILY timolol 0.5 % Drops 1 drp OPHTHALMIC (EYE) BID Rx Instructions: both eyes docusate sodium 100 mg Capsule 100 mg PO DAILY PRN (Reason: Constipation) sertraline 50 mg Tablet 75 mg PO DAILY acetaminophen 500 mg Capsule 500 mg PO Q6H PRN (Reason: pain) senna 8.6 mg Capsule 8.6 mg PO DAILY PRN (Reason: Constipation) metoprolol succinate 25 mg Capsule,Sprinkle,Er 24hr 25 mg PO DAILY quetiapine 25 mg Tablet 25 mg PO BEDTIME Qty: 30 0RF potassium chloride 20 mEq tablet extended release 20 meq PO DAILY Qty: 60 0RF Discontinued oxycodone 5 mg Tablet 5 mg PO Q4HR PRN (Reason: Pain, Moderate (4-6)) Qty: 30 0RF Follow up/Referrals: Doctor Perry MD [Primary Care Provider] - Lavon Batista MD [Physician] - (Two weeks) Discharge Health Status Multidrug resistant organism: No MDRO Diet/Activity/Treatments Diet: Diet as Tolerated Activity: Abduction brace will be set to limit her abduction at 30? and to allow flexion no further than 70?. Other treatments: Abduction brace will be set to limit her abduction at 30? and to allow flexion no further than 70?. Skin/Wound/Dressing Care Report to your healthcare provider any signs of infection, such as:: chills, fever, night sweats, increased pain, unusual drainage and unusual redness Dressing: Keep incision clean and dry Special Rehabilitation Services Reason for rehabilitation: Post-operative therapy Rehab type: Physical therapy and Occupational therapy Visit Report/Discharge Packet Instructions: DI for Prescription Opioid Use Stand Alone Forms: Patient Portal/API, Stroke Signs & Symptoms, Surgery Discharge Discharge Data Primary Care Provider: Doctor Vicky Quality VTE Deep Vein Thrombosis/Pulmonary Embolism Present on Admission: No
--- NOTE | 2022-06-11 11:40 | PT.IIE ---
Current Diagnoses Unspecified dislocation of right hip, initial encounter (06/10/22) Surgery Performed Operation Date: 06/10/22 16:30 Actual Procedures p Closed Reduction Dislocated Hip(Right) - Lavon Batista MD Surgical History (Last Reviewed 06/11/22 @ 11:12 by Aneudy Kinsey PA-C) H/O: hysterectomy Medical History (Last Reviewed 06/11/22 @ 11:12 by Aneudy Kinsey PA-C) Dementia Glaucoma Hypercholesterolemia Hypertension Hypothyroidism Physical Therapy Inpatient Evaluation/Re-Eval M1 PT/OT-IP Prior Functional Status Start: 06/11/22 13:40 Freq: NEEDED Status: Active Protocol: Document 06/11/22 11:40 AB (Rec: 06/11/22 14:16 AB [id number]) Medical Review Prior Functional Status Medical History Reviewed Yes Communication pt with confusion (dx dementia ) Mobility and Gait pt unable to accurately provide PLOF: per EMR: pt lives at [facility]; per son: pt was able to ambulate using 4WW or a SPC mod i Prior Functional Level (Other details) pt s/p 05/25/22 and sustainted a R hip fx and underwent hemiarthroplasty. pt in the hospital from 05/25/22 to . pt had one incidence of R hip dislocation during hospital stay and underwent closed reduction 05/28/22. pt d/c'd 05/29 to SNF. pt came back to the hospital yesterday due to another hip dislocation and underwent closed reduction again. Ortho MD order abductor hip brace for pt. Social History Household Members other Living Arrangements Assisted Living Number of Stairs To Enter/Railing? pt lives at [facility] M2 PT-IP Current Condition Start: 06/11/22 13:40 Freq: NEEDED Status: Active Protocol: Document 06/11/22 11:40 AB (Rec: 06/11/22 14:16 AB [email or web address]) Physical Therapy Current Condition Current Condition Evaluation Date 06/11/22 Treatment Diagnosis R hip hemiarthroplasty closed reduction; difficulty in walking Onset Date 06/10/22 M3 PT-IP Subjective Start: 06/11/22 13:40 Freq: NEEDED Status: Active Protocol: Document 06/11/22 11:40 AB (Rec: 06/11/22 14:16 AB [email or web address]) Subjective Physical Therapy Visit Type Type Initial Evaluation Visit Start Time 11:40 Visit Stop Time 12:35 Total Visit Minutes 55 M4 PT-IP Mobility and Gait Start: 06/11/22 13:40 Freq: NEEDED Status: Active Protocol: Document 06/11/22 11:40 AB (Rec: 06/11/22 14:16 AB [email or web address]) PT-Bed Mobility Assessment Supine to Sit Supine to Sit Maximum Assistance,2 Person Assistance,Head of Bed Elevated,Bedrails Sit to Supine Sit to Supine Maximum Assistance,2 Person Assistance,Bedrails Scooting Scooting to Edge of Bed Dependent Scooting Up and Down in Bed Dependent PT-Transfer Assessment Sit to and From Stand Sit to and from Stand Maximum Assistance,2 Person Assistance,Use of Upper Extremities Equipment Transfer Assistive Device Gait Belt,Front Wheeled Walker Orthotic/Prosthetic Devices or Brace: Yes Comments Mobility Comments pt in room and with confusion. pt educated on hip precautions. Hand Folder arrived for hip abductor hip brace. pt fitted with hip brace. assisted handle maker with pt's mobility for proper fitting. pt completed rolling L<>R max A x 2 and max cues. pt signed papers after brace fitting. brace set at 70 deg max flexion and 30 deg abduction pt completed supine to sit max A x 2 and max cues with HOB elevated. able to sit on EOB CGA. completed sit to stand max A x 2 and max cues and able to take side steps towards HOB max A x 2 and max cues using PFW. pt completed sit to supine max A x 2 and max cues. positioned pt on the bed. call light and table placed within reach. Gait Assessment Gait Gait Assistance Required: Maximum Assistance,2 Person Assist Distance (Feet) 2 Able to Maintain Weight Bearing Status Yes During Gait Assistive Devices Assistive Device Gait Belt,Platform Walker Orthotic/Prosthetic Devices or Brace: No Gait Deviations General Gait Pattern Decreased Stride Length, Decreased Feet Clearance Factors Limiting Gait Function Factors Limiting Gait Function Decreased Activity Tolerance, Decreased Strength,Difficulty Following Directions,Limited Range of Motion,Pain,Poor Balance,Poor Safety Awareness PT-Balance Assessment Sitting Balance and Reactions Static Sitting Balance Ability Good Dynamic Sitting Balance Ability Fair Standing Balance and Reactions Static Standing Balance Ability Poor Dynamic Standing Balance Ability Poor Device Used FWW M5 PT-IP Objective Assessments Start: 06/11/22 13:40 Freq: NEEDED Status: Active Protocol: Document 06/11/22 11:40 AB (Rec: 06/11/22 14:16 AB [email or web address]) Orientation Orientation/Cognition Level of Alertness Confusional State Orientation Name Language Function Ability Hard of Hearing Safety Awareness Decreased Safety Awareness Memory Description Short Term Impaired,Completion Manager Impaired Muscle Tone Muscle Tone WNL Yes M6 PT-IP Treatment Start: 06/11/22 13:40 Freq: NEEDED Status: Active Protocol: Document 06/11/22 11:40 AB (Rec: 06/11/22 14:16 AB [email or web address]) Physical Therapy Treatment Education Education Provided Precautions,Weight Bearing Status,Safety M7 PT-IP Assessment and Plan Start: 06/11/22 13:40 Freq: NEEDED Status: Active Protocol: Document 06/11/22 11:40 AB (Rec: 06/11/22 14:16 AB [email or web address]) PT Summary Assessment and Plan Potential Rehabilitation Potential Fair Status of Condition at Evaluation Evolving Summary Impairments Pain,ROM,Strength,Balance, Coordination,Sensation,Tone, Cognition,Bed Mobility, Transfers,Gait,Activity Tolerance Assessment Summary pt s/p R hip hemiarthroplasty 05/26/22 but with h/o dislocations with last one and underwent closed reduction. Ortho MD ordered hip abductor brace for pt . handle maker fitted one for pt and completed. pt requiring max A x 2 with mobility. pt plans to go back to a memory care facility. Goals Bed Mobility Goal Minimal Assistance Transfer Goal Minimal Assistance,Front Wheeled Walker Gait Goal Minimal Assistance,Front Wheel Walker Gait Distance 50 Days to Meet Goals 10 Frequency of Treatment Frequency Of Treatment Once a Day Treatment Plan Physical Therapy Treatment Plan Bed Mobility Training,Transfer Training,Gait Training, Therapeutic Exercise,Balance Retraining,Post Op Education, Discharge Planning,Hot or Cold Pack,Neuromuscular Re-ed, Coordination Retraining,Manual Therapy Precautions Posterior Hip Precautions No Hip Flexion > 90 degrees,No Hip Internal Rotation,No Hip Adduction Other Precautions R hip abductor brace: set to limit her abduction at 30? and to allow flexion no further than 70?. Weight Bearing Status Weight Bearing Status Weight Bear as Tolerated Allowed Weight Bearing Amount (enter % RLE WBAT or #) (%) Recommendations To Nursing Amount of Assist Needed 2 Person Assist Discharge Recommendations PT Discharge Recommendations Home with 15/12 Assist Available,Home Health Transportation Needs at Discharge Stretcher/Ambulance
--- NOTE | 2022-06-11 12:10 | DI.RAD.S_ITS ---
PROCEDURE: XR HIP W PEL IF DONE RT 2V INDICATIONS: HIP RELOCATION TECHNIQUE: 2 view(s) of the hip acquired. COMPARISON: [facility], CR, XR HIP W PEL IF DONE RT 2V, 05/26/2022, 9:32. FINDINGS: 2 intraoperative images of the right hip arthroplasty. Arthroplasty projects in the expected location. IMPRESSION: Intraoperative guidance provided. Dictated by: Jarad Judd M.D. on 06/11/2022 at 13:22 Approved by: Jarad Judd M.D. on 06/11/2022 at 13:25
--- NOTE | 2022-06-11 12:42 | CM.DANOTE ---
Initial Discharge Assessment Note: Met with son Presley in room, introduced self and role. Presley is known to me from prior admission, very supportive son. Payer: [facility] and [facility] PCP: Montez Zarate 82 year old demented female admitted from [facility] in [place] yesterday with a new right hip dislocation which she has had in past. A new fitted brace arrived today and placed. [facility] is accepting patient back for admission (Man[facility] [phone]). BLS arranged for 1:30, form filled out and signed. Notified son Presley by voicemail of potential charges if [facility] chooses not to cover. Notified STATOR TESTER and nurse of discharge time and plan. Aneudy HAYDEN has provided signed med list and scripts which have been faxed and originals to go with. Plan: DC BLS at 1:30 today. EMMETT Discharge Planning/Care Management CM Discharge Assessment Start: 06/11/22 12:38 Freq: Status: Active Protocol: Document 06/11/22 12:38 (Rec: 06/11/22 12:41 [id number]) Discharge Planning Assessment Assigned Belt Polisher Chasity Mccann RN/NANIP Advance Directives? Yes-POLST Advance Directives on File No History Provided By Family Member Has Patient been admitted in last 30 Yes days? Prior Living Arrangements Assisted Living Comment [facility] IN [place]. Moved in 06/06/22 Household Members other Type of transporation used prior to Relies on Others admit Facility Name Admitted From: [facility] Willing to Return to Facility? Yes Independent with ADL's No Is patient alert and oriented? No: dementia Needs Assistance With Bathing,Eating,Grooming,Meal Prep,Toileting,Managing Medications,Home Chores / Shopping Caregiver for Another No Comment [employer] Comment Return to [facility] preferred by son, better care and supervision We are awaiting for brace to arrive. Barriers to Discharge No Comment Patient is demented Discharge Plan Assisted Living Facility Additional Comment [facility] accepts Review Status In Process Next Review Type Continued Stay Review
--- NOTE | 2022-06-11 12:45 | OT.IP.EVAL ---
Current Diagnoses Unspecified dislocation of right hip, initial encounter (06/10/22) Surgery Performed Operation Date: 06/10/22 16:30 Actual Procedures p Closed Reduction Dislocated Hip(Right) - Lavon Batista MD Past Medical History (Last Reviewed 06/11/22 @ 11:12 by Aneudy Kinsey PA-C) Dementia Glaucoma Hypercholesterolemia Hypertension Hypothyroidism Surgical History (Last Reviewed 06/11/22 @ 11:12 by Aneudy Kinsey PA-C) H/O: hysterectomy Occupational Therapy Inpatient Evaluation/Re-Eval M1 PT/OT-IP Prior Functional Status Start: 06/11/22 13:40 Freq: NEEDED Status: Discharge Protocol: Document 06/11/22 11:40 AB (Rec: 06/11/22 14:16 AB [id number]) Medical Review Prior Functional Status Medical History Reviewed Yes Communication pt with confusion (dx dementia ) Mobility and Gait pt unable to accurately provide PLOF: per EMR: pt lives at [facility]; per son: pt was able to ambulate using 4WW or a SPC mod i Prior Functional Level (Other details) pt s/p 05/25/22 and sustained a R hip fx and underwent hemiarthroplasty. pt in the hospital from 05/25/22 to . pt had one incidence of R hip dislocation during hospital stay and underwent closed reduction 05/28/22. pt d/c'd 05/29 to SNF. pt came back to the hospital yesterday due to another hip dislocation and underwent closed reduction again. Ortho MD order abductor hip brace for pt. Social History Household Members other Living Arrangements Assisted Living Number of Stairs To Enter/Railing? Pt now lives at [facility] M1 PT/OT-IP Prior Functional Status Start: 06/11/22 14:41 Freq: NEEDED Status: Active Protocol: Document 06/11/22 12:05 [facility] (Rec: 06/11/22 14:58 [facility] [id number]) Medical Review Prior Functional Status Medical History Reviewed Yes Communication pt with confusion (dx dementia ) Mobility and Gait pt unable to accurately provide PLOF: per EMR: pt lives at [facility]; per son: pt was able to ambulate using 4WW or a SPC mod i Prior Functional Level (Other details) pt s/p 05/25/22 and sustainted a R hip fx and underwent hemiarthroplasty. pt in the hospital from 05/25/22 to . pt had one incidence of R hip dislocation during hospital stay and underwent closed reduction 05/28/22. pt d/c'd 05/29 to SNF. pt came back to the hospital yesterday due to another hip dislocation and underwent closed reduction again. Ortho MD order abductor hip brace for pt. Social History Household Members other Living Arrangements Assisted Living Number of Stairs To Enter/Railing? Pt to live at [facility] now. M2 OT-IP Current Condition Start: 06/11/22 14:41 Freq: Status: Active Protocol: Document 06/11/22 12:05 [facility] (Rec: 06/11/22 14:58 [facility] [id number]) Occupational Therapy Current Condition Current Condition Evaluation Date 06/11/22 Treatment Diagnosis s/p Closed reduction Rihgt HIp Arthroplasty Diagnosis Onset Date 06/10/22 Post Operative Precautions Other Precautions Pt to have abductor brace on Max flexion 70 degress and abduction 30 degrees. M3 OT- IP Subjective and Pain Start: 06/11/22 14:41 Freq: Status: Active Protocol: Document 06/11/22 12:05 [facility] (Rec: 06/11/22 14:58 [facility] [id number]) OT- Subjective Occupational Therapy Visit Type Type Initial Evaluation Visit Start Time 12:05 Visit Stop Time 12:45 Total Visit Minutes 40 Occupational Therapy Visit Comments Patient Comments Pt getting abductor brace fitted with Orthotists , PT , when OT came into the room. OT Pain Assessment Pain When Pain Assessed During Mobility Pain Present Pain Present Pain Reported M4 OT- IP ADL's Start: 06/11/22 14:41 Freq: Status: Active Protocol: Document 06/11/22 12:05 [facility] (Rec: 06/11/22 14:58 [facility] [id number]) OT [id number] Comments OT Self-Feeding Comments Pt needing set-up assist, orientation to her room , but able to self feed herself a sandwich with her hands. OT ADL-Grooming Comments OT Grooming Comments not performed OT ADL-Oral Care Comments Oral Care Comments not performed OT ADL-Dressing Comments OT Dressing Comments Pt will required total assist for all LB dressing needs and at least MOD for UB dressing needs. OT ADL-Toileting Comments OT Toileting Comments Not performed. OT ADL-Bathing Bathing Type Bathing Type Sponge Bath Comments OT Bathing Comments Sponge bath more appropriate at this time. M5 OT- IP IADL's Start: 06/11/22 14:41 Freq: Status: Active Protocol: Document 06/11/22 12:05 [facility] (Rec: 06/11/22 14:58 [facility] [id number]) OT-Instrumental Activities of Daily Living Deficits IADL Deficits Identified Deficits Home Safety Awareness Awareness of Need for Assistance at Home Decreased Awareness Ability to Problem Solve Emergency Unable to Problem Solve Situations Medication Management Medication Management Caregiver Administers Money Management Money Management Caregiver Provides Assistance Meal Preparation Meal Preparation Caregiver Provides Assist Direct Support Specialist Direct Support Specialist Caregiver Provides Assist Driving Driving Caregiver Provides Assist M6 OT- IP Functional Cognition Start: 06/11/22 14:41 Freq: Status: Active Protocol: Document 06/11/22 12:05 [facility] (Rec: 06/11/22 14:58 [facility] [id number]) Cognitive Factors Limiting Selfcare Function Cognitive Ability Level of Alertness Drowsy Patient Orientation Name Cognitive Comments Cognitive Assessment Comments Pt mainly just orientated to her name. Pt very drowsy and falling asleep as the brace being fitting on her. Pt has decreased STM and working memory. OT- Vision and Hearing OT- Vision Assessment Vision Assessment Comments Pt is very hard of hearing. M7 OT- IP Mobility and Balance Start: 06/11/22 14:41 Freq: Status: Active Protocol: Document 06/11/22 12:05 [facility] (Rec: 06/11/22 14:58 [facility] [id number]) OT- Bed Mobility Assessment Supine to Sit Supine to Sit Assist Maximum Assistance,2 Person Assistance Sit to Supine Sit to Supine Assist Maximum Assistance,2 Person Assistance OT-Transfer Assessment Sit to and From Stand Sit to and from Stand Maximum Assistance,2 Person Assistance Comments Mobility Comments MAXA x2 to help move her legs to the edge of the bed and get her trunk upright. MAXA X 2 to stand , PT able to hold her right arm as only allowed to weight bear on her forearm as had ORIF right radius 05/25/22 OT- Gait Assessment Comments Gait Ability Comments Pt able to side step up in the bed with FWW with MAX AX 2. Pt will highly benefit from use of platform walker. OT- Balance Assessment Sitting Balance and Reactions Static Sitting Balance Ability Fair Dynamic Sitting Balance Ability Poor Standing Balance and Reactions Static Standing Balance Ability Poor Dynamic Standing Balance Ability Poor M8 OT- IP Objective Assessments Start: 06/11/22 14:41 Freq: Status: Active Protocol: Document 06/11/22 12:05 [facility] (Rec: 06/11/22 14:58 [facility] [id number]) OT Gross Range of Motion Upper Extremity Range of Motion Assessment Right Impaired OT Strength Upper Extremity Strength Assessment Right Impaired M9 OT- IP Assessment and Plan Start: 06/11/22 14:41 Freq: Status: Active Protocol: Document 06/11/22 12:05 [facility] (Rec: 06/11/22 14:58 [facility] [id number]) OT Summary Assessment and Plan Potential Rehabilitation Potential Fair Analytic Complexity at Evaluation High Summary OT Impairments Pain,Balance,Functional Cognition,Functional Mobility, Self-Feeding,Grooming,Dressing ,Toileting,Bathing,Toilet Transfers,Shower Transfers, Activity Tolerance Progress Towards Goals Progressing Toward Goals Assessment Summary Pt HIGH complexity due to decreased memory and follow through of her precautions, now needing extensive two person assist for all ADl and mobility needs. Pt now has an abductor brace set at maximum of 30 abduction and 70 for flexion. Pt to go back to [facility] and benefit from home health therapies. Goals Grooming Goal Standby Assistance Dressing Goal Moderate Assistance Toileting Goal Moderate Assistance Bathing Goal Moderate Assistance Toilet Transfer Goal Moderate Assistance Shower Transfer Goal Moderate Assistance Days to Meet Goals 25 Frequency of Treatment Frequency Of Treatment Once a Day Treatment Plan OT Treatment Plan ADL Training,Functional Cognition Training,Functional Mobility,Patient/Family Education,Discharge Planning Discharge Recommendations OT Discharge Recommendations SNF Rehab Other Discharge Recommendations Pt now lives at [facility] Transportation Needs at Discharge Stretcher/Ambulance
--- NOTE | 2022-06-11 14:10 | PC.NURSE ---
Addendum entered by Carol Jessica R.N. 06/11/22 14:19: Charted on wrong patient. Original Note: Discharge note: IV discontinued by PCT. PT conducted caregiver training with pt's son. Discussed PRN pain medication, increasing fluid and fiber intake to prevent constipation, PRN N/V medication. Pt verbalized understanding and had no unanswered questions. Pt's belongings with pt. Pt was brought in a w/c to a private vehicle and discharged home with son.
--- NOTE | 2022-06-11 14:19 | PC.NURSE ---
Discharge note: Report given to [facility]. Paperwork faxed from care management to [facility]. Abduction brace placed by PT. Report given to [facility] EMS crew upon pickup. Discharge packet given to EMS with hard scripts for [facility]. IV discontinued by PCT. Belongings given to EMS crew.
== END 2022-06-11 13:49 | DRG 561 ==
PROVIDERS: Admitting Provider Orthopaedic Surgery; Referring Provider Orthopaedic Surgery; Visit Provider Orthopaedic Surgery
PROC: 0SW9XJZ Revision of Synthetic Substitute in Right Hip Joint, External Approach (ICD-10-PCS; principal; 2022-06-10 16:30)
DX: T84.020A Dislocation of internal right hip prosthesis, initial encounter (principal); F03.90 Unspecified dementia, unspecified severity, without behavioral disturbance, psychotic disturbance, mood disturbance, and anxiety; H40.9 Unspecified glaucoma; E78.00 Pure hypercholesterolemia, unspecified; E03.9 Hypothyroidism, unspecified; I10 Essential (primary) hypertension; F32.A Depression, unspecified; Z20.822 Contact with and (suspected) exposure to COVID-19
CPT/HCPCS: 36415; 73502; 76000; 85014; 85018; 87635; 97162; 97167; 97530; C9803; J0690; J1170

== ENCOUNTER 2022-06-14 09:58 | Inpatient (IN) | payer MEDICARE, OTHER, SELFPAY ==
[2022-06-10 12:49] VITALS: BMI 23.1
[2022-06-14] VITALS (16 sets, daily range): BP systolic 109–182; BP diastolic 57–93; PULSE 64–90; RESP 15–22; TEMP 36–36.8; O2SAT 92–99; BMI 23.8
--- NOTE | 2022-06-14 10:03 | DI.RAD.S_ITS ---
PROCEDURE: XR HIP W PEL IF DONE RT 2V INDICATIONS: right hip shortened. TECHNIQUE: AP pelvis with lateral view(s) of the right hip(s). COMPARISON: [facility], , XR HIP W PEL IF DONE RT 2V, 06/10/2022, 18:42. FINDINGS: Bones: There is complete dislocation of the right femoral arthroplasty from the acetabulum. It is located approximately 5.5 cm superior to the acetabulum. No visualized fracture. Soft tissues: The visualized bowel gas pattern is normal. No suspicious soft tissue calcifications. IMPRESSION: Right femoral dislocation without visualized fracture. Dictated by: Devika Wang M.D. on 06/14/2022 at 10:31 Approved by: Devika Wang M.D. on 06/14/2022 at 10:32
--- NOTE | 2022-06-14 10:05 | ED.EXTPRO ---
HPI - Extremity Problem General Chief complaint: Extremity Injury, Lower Stated complaint: rt artificial hip disloc Time Seen by Provider: 06/14/22 09:59 Source: patient, EMS and old records reviewed Mode of arrival: EMS Limitations: other (dementia oriented to self at baseline per ems) History of Present Illness HPI Narrative: This is an 82-year-old female with history of dementia, hypertension, dyslipidemia, hypothyroidism with right hip hemiarthroplasty on May 25, 2022 with 1st dislocation on May 28, patient was seen at [facility] reduction was attempted and thought hip was back in place but when she presented to office was found to have dislocation of her right hip and was taken to the OR for closed reduction . Patient was discharged to nursing facility 06/11/2022. Patient was placed in abduction brace as she has difficulty remembering her dislocation prevention. Patient was found to appear to be shortened. Patient herself does not currently complain of any pain, she does state she does not wish to be her at the hospital. She knows her name, she is quite hard of hearing but denies any other issues currently. Per EMS patient was found in bed, no reported falls recently. Patient appears to be on aspirin 81 mg daily but no other daily medications. Allergies are morphine which causes vomiting. She also appears to have a cast on her right forearm with distal ulnar fracture. Related Data Home Medications Medication Instructions Recorded Confirmed acetaminophen 500 mg capsule 500 mg PO Q6H PRN pain 05/25/22 06/10/22 atorvastatin 40 mg tablet 40 mg PO DAILY 05/25/22 06/10/22 docusate sodium 100 mg capsule 100 mg PO DAILY PRN Constipation 05/25/22 06/10/22 latanoprost 0.005 % eye drops 1 drp ophthalmic (eye) BEDTIME 05/25/22 06/10/22 levothyroxine 50 mcg tablet 50 mcg PO DAILY 05/25/22 06/10/22 metoprolol succinate 25 mg capsule 25 mg PO DAILY 05/25/22 06/10/22 sprinkle, ext. release 24 hr sennosides 8.6 mg capsule (senna) 8.6 mg PO DAILY PRN Constipation 05/25/22 06/10/22 sertraline 50 mg tablet 75 mg PO DAILY 05/25/22 06/10/22 timolol 0.5 % eye drops 1 drp ophthalmic (eye) BID 05/25/22 06/10/22 Previous Rx's Medication Instructions Recorded potassium chloride 20 mEq 20 meq PO DAILY #60 tabs 05/29/22 tablet,extended release quetiapine 25 mg tablet 25 mg PO BEDTIME #30 tabs 05/29/22 aspirin 81 mg tablet,delayed 81 mg PO BID #60 tabs 06/11/22 release oxycodone 5 mg tablet 5 mg PO Q3HR PRN Pain, Moderate 06/11/22 (4-6) #30 tabs Allergies Allergy/AdvReac Type Severity Reaction Status Date / Time morphine AdvReac Severe Vomiting Verified 05/23/22 13:08 Review of Systems Review of Systems ROS Unobtainable: All systems reviewed & are unremarkable except as noted in HPI and below Patient History Medical History Dementia Glaucoma Hypercholesterolemia Hypertension Hypothyroidism Surgical History H/O: hysterectomy Social History household members: other Smoking Status: Never smoker alcohol intake: never Smoking Status: Never smoker Substance Use Type: does not use Exam Narrative Exam Narrative: GENERAL: Alert and oriented to self. Mild distress. Patient does respond but is very hard of hearing. HEENT: Head normocephalic, atraumatic, EOMI, pupils reactive, face symmetric, moist mucous membranes NECK: Supple, full range of motion CARDIOVASCULAR: Regular rate and rhythm without murmurs, rubs or gallops. RESPIRATORY: Breath sounds equal bilaterally, no wheezes rales or rhonchi. No tachypnea accessory muscle use. ABDOMEN: Soft, nontender. Normoactive bowel sounds all 4 quadrants. No guarding or rebound, rigidity, no mass : No CVA tenderness EXTREMITIES: Patient's bilateral lower extremities or placing a reduction brace, her right lower extremity does appear shortened in comparison to the left she has 2+ distal pulses bilaterally with normal sensation to light touch. She has normal dorsiflexion plantar flexion when asked. Patient was not taken through range of motion. She is not tender over the hip but does appear to have some deformity.. Neurovascularly intact NEUROLOGICAL: Cranial nerves II through XII grossly intact. Moving all extremities SKIN: Warm, dry, no petechiae, no rashes or lesions. Initial Vital Signs Initial Vital Signs: Vital Signs Pulse Rate 67 06/14/22 09:59 Respiratory Rate 18 06/14/22 09:59 Pulse Oximetry 98 06/14/22 09:59 Course Orders Ordered: ED Orders 06/14/22 10:03 XR hip w pel if done RT 2V Stat 06/14/22 10:04 BMP [Basic Metabolic Panel] Stat CBC Auto Diff [Complete Blood Count AUTO DIFF] Stat COVID19 -Nasal RAPID/Pre-Proc Stat 06/14/22 11:31 EKG-12 Lead Stat 06/14/22 13:09 Consult to Hospitalist Service Stat Ondansetron HCl (Ondansetron 4 Mg/2 Ml Inj) 4 mg IV Q6HR PRN PRN Reason: Nausea And Vomiting Last Admin: 06/14/22 10:31 Dose: 4 mg Documented By: RB Discontinued Medications Ketorolac Tromethamine (Ketorolac 30 Mg/Ml Vial) 15 mg IV NOW ONE Stop: 06/14/22 10:04 Last Admin: 06/14/22 10:30 Dose: 15 mg Documented By: RB Potassium Chloride (Potassium Chloride 20 Meq/15 Ml Udc) 40 meq PO NOW ONE Stop: 06/14/22 11:32 Last Admin: 06/14/22 11:40 Dose: 40 meq Documented By: KB Consultations Consultation #1: Dr. Coburn, orthopedic surgery does not feel it be helpful to try to put patient and at this point as she is going to dislocate again and that she needs surgery for her chronic recurrent hip dislocation. He notes that this is more of semi urgent and not emergent surgery. [place] that if the facility she is currently staying is comfortable she can actually follow up as an outpatient. If they are not we can admit to the hospital have discussion with Orthopedic surgery about next steps. Consultation #2: Dr. Soto, hospitalist reviewed patient's chart, he will contact Dr. Cole to decide if hospitalist is going to admit versus consult. Consultation #3: Dr. Coburn, will admit, hospitalist consult. Dr. Cole is aware. Vital Signs Vital signs: Vital Signs - 8 hr 06/14/22 10:09 06/14/22 09:59 06/14/22 10:00 Temperature 97.9 F Pulse Rate 85 67 Pulse Rate [Right Dorsalis Pedis] Respiratory Rate 22 18 Blood Pressure 174/79 H 174/79 H Pulse Oximetry 99 98 Oxygen Delivery Method Room Air 06/14/22 10:00 06/14/22 10:20 06/14/22 10:30 Temperature Pulse Rate 68 67 Pulse Rate [Right Dorsalis Pedis] 88 Respiratory Rate Blood Pressure Pulse Oximetry 98 98 Oxygen Delivery Method 06/14/22 10:31 06/14/22 10:31 06/14/22 11:00 Temperature Pulse Rate 66 64 Pulse Rate [Right Dorsalis Pedis] Respiratory Rate Blood Pressure 182/66 H Pulse Oximetry 98 98 Oxygen Delivery Method 06/14/22 11:01 06/14/22 11:01 06/14/22 11:30 Temperature Pulse Rate 70 Pulse Rate [Right Dorsalis Pedis] Respiratory Rate Blood Pressure 134/61 138/90 Pulse Oximetry 97 Oxygen Delivery Method 06/14/22 11:30 06/14/22 13:00 06/14/22 13:01 Temperature Pulse Rate 66 87 86 Pulse Rate [Right Dorsalis Pedis] Respiratory Rate Blood Pressure Pulse Oximetry 98 98 98 Oxygen Delivery Method 06/14/22 13:01 Temperature Pulse Rate Pulse Rate [Right Dorsalis Pedis] Respiratory Rate Blood Pressure 120/63 Pulse Oximetry Oxygen Delivery Method MDM - Extremity (Nontraumatic) Lab Data Result diagrams: 06/14/22 10:04 06/14/22 10:04 Labs: Lab Results 06/14/22 06/14/22 06/14/22 Range/Units 10:04 10:04 10:04 WBC 9.1 (4.5-11.0) X10^3/uL RBC 3.98 L (4.0-5.2) X10^6/uL Hgb 11.6 L (12.0-16.0) g/dL Hct 33.5 L (36-46) % MCV 84.3 (80-100) fL MCH 29.2 (26-34) PG MCHC 34.6 (30-36) % RDW 13.9 (11.6-14.8) % Plt Count 379 (150-400) X10^3/uL Neut % (Auto) 75.8 H (50-75) % Lymph % (Auto) 10.7 L (25-40) % Crane % (Auto) 12.7 (3-14) % Eos % (Auto) 0.4 L (2-4) % Baso % (Auto) 0.4 (0-2) % Neut # (Auto) 6900 (5439-4663) /uL Lymph # (Auto) 1000 L (7820-4477) /uL Crane # (Auto) 1100 H (0-900) /uL Eos # (Auto) 0 (0-450) /uL Baso # (Auto) 0 (0-100) /uL Sodium 132 L (137-145) mmol/L Potassium 3.0 L (3.4-5.1) mmol/L Chloride 98 (98-107) mmol/L Carbon Dioxide 26 (22-32) mmol/L BUN 8 (7-17) mg/dL Creatinine 0.38 L (0.52-1.04) mg/dL Estimated GFR > 60 (>60) mL/min BUN/Creatinine Ratio 21.1 (6-22) Glucose 107 (80-110) mg/dL Calcium 7.9 L (8.4-10.2) mg/dL SARS-CoV-2 (PCR) Negative (Negative) Imaging Data Extremity x-ray #1: Radiologist's Impression: [address] [address] XRay Report Signed Patient: Sweetie Porras MR#: [id number] : 1940 Acct:[id number] Age/Sex: 82 / F Date of Service: 06/14/22 Loc: ED Accession Number: [id number] ?? Procedure: XR hip w pel if done RT 2V Ordering Provider: Ariana Alvarez D.O. PROCEDURE:? XR HIP W PEL IF DONE RT 2V ? INDICATIONS:? right hip shortened. ? TECHNIQUE:? AP pelvis with lateral view(s) of the right hip(s).? ? COMPARISON:? [facility], [place], XR HIP W PEL IF DONE RT 2V, 06/10/2022, 18:42. ? FINDINGS:? ? Bones:? There is complete dislocation of the right femoral arthroplasty from the acetabulum.? It is located approximately 5.5 cm superior to the acetabulum.? No visualized fracture. ? Soft tissues:? The visualized bowel gas pattern is normal.? No suspicious soft tissue calcifications.? ? ? IMPRESSION:? Right femoral dislocation without visualized fracture. ? Dictated by: Devika Wang M.D. on 06/14/2022 at 10:31 ? ? Approved by: Devika Wang M.D. on 06/14/2022 at 10:32?? ECG Data Attestation EKG: I personally reviewed and interpreted this ECG as follows: Interpretation: Sinus rhythm rate of 70 6p are 142 QRS [address] QTC [address] No acute ST elevation or depression noted. MDM Narrative Medical decision making narrative: 82-year-old female with recurrent hip dislocation this is her 3rd or 4th episode since the 25 of May when she broke her hip initially had hemiarthroplasty has had reduction in the OR at least twice is my understanding. Patient did have baseline labs obtained potassium slightly low, EKG does not show any significant rhythm changes. Patient was lying in bed with her abductor pillow on according to her son he states it looked like she had managed to twist her leg in bed. She is currently in a memory care/[facility] facility where she has been placed as bed-bound but patient dementia causes her to forget and she continues to move. Patient case was discussed with Dr. Valadez from Orthopedic surgery does not recommend attempted reduction in the department initial likely dislocate very shortly thereafter, next steps would be potentially surgery. This is on an urgent basis. Patient is felt to be appropriate for possible discharge if outside facility felt comfortable and patient's pain was controlled. We contacted patient's facility they do not seem to be an appropriate choice at this time. Son is open to surgery if it is felt to be helpful to reducing her pain and or likelihood of dislocating. Discussed with Dr. Coel orthopedic surgeon as well as Dr. Oden hospitalist patient is accepted for admission for right anterior hip dislocation and hypokalemia. Patient had her potassium orally replaced. Son will meet with Orthopedic surgery to decide about next steps. Patient pain has been improved after a dose of Toradol. She has been taking Tylenol and oxycodone for pain in her facility. Discussed with son if she is having any increased pain we can start this. Gardner catheter was also placed to prevent additional unneeded movement. Discharge Plan Departure Patient Disposition: Admitted As Inpatient Clinical Impression: Hypokalemia Anterior dislocation of hip Qualifiers: Encounter type: subsequent encounter Laterality: right Qualified Code(s): S73.034D - Other anterior dislocation of right hip, subsequent encounter Admit Date/Time: 06/14/22 13:09 Admit Provider: Royce Coburn
[2022-06-14 10:17] LABS: Add Manual Diff / Slide Review NO; Basophils Absolute Auto 0 /uL (0-100); Basophils Percent Auto 0.4 % (0-2); Eosinophils Absolute Auto 0 /uL (0-450); Eosinophils Percent Auto 0.4 % (2-4); Hematocrit 33.5 % (36-46); Hemoglobin 11.6 g/dL (12.0-16.0); Lymphocytes Absolute Auto 1000 /uL (1100-4500); Lymphocytes Percent Auto 10.7 % (25-40); Mean Corpuscular HGB Conc 34.6 % (30-36); Mean Corpuscular Hemoglobin 29.2 PG (26-34); Mean Corpuscular Volume 84.3 fL (80-100); Monocytes Absolute Auto 1100 /uL (0-900); Monocytes Percent Auto 12.7 % (3-14); Neutrophils Absolute Auto 6900 /uL (1500-7000); Neutrophils Percent Auto 75.8 % (50-75); Platelet Count 379 X10^3/uL (150-400); Red Blood Cell Count 3.98 X10^6/uL (4.0-5.2); Red Cell Distribution Width 13.9 % (11.6-14.8); White Blood Cell Count 9.1 X10^3/uL (4.5-11.0)
[2022-06-14] MEDS: KETOROLAC 30 MG/ML VIAL 15 MG IV (10:30)
[2022-06-14] MEDS: ONDANSETRON 4 MG/2 ML INJ IV ×2 (10:31→17:49)
[2022-06-14 10:43] LABS: COVID19 -Nasal RAPID Negative (Negative)
[2022-06-14 11:13] LABS: BUN Creatinine Ratio 21.1 (6-22); Blood Urea Nitrogen 8 mg/dL (7-17); Calcium 7.9 mg/dL (8.4-10.2); Carbon Dioxide 26 mmol/L (22-32); Chloride 98 mmol/L (98-107); Estimated Glomerular Filt Rate > 60 mL/min (>60); Glucose 107 mg/dL (80-110); HEMOLYSIS < 15 (0-50); Sodium 132 mmol/L (137-145)
[2022-06-14] MEDS: POTASSIUM CHLORIDE 20 MEQ/15 ML UDC 40 MEQ PO (11:40)
--- NOTE | 2022-06-14 15:17 | P.CONS_ITS ---
History of Present Illness Consult details Date Patient Seen: 06/14/22 Time Patient Seen: 15:00 Chief complaint: rt artificial hip disloc Narrative: Ms. Porras is an 82W with PMH dementia, HTN, hypothyroid who is s/p R hip hemiarthoplasty on 05/26/2022, which was complicated by dislocation after initial discharge for which she was recently admitted and discharged from the orthopedic service on 06/11/22. She returns today with a 2nd dislocation. Patient forgets to not cross her legs due to her underlying dementia. She denies pain but is a very inconsistent historian. There have been no reports of fever, chills, chest pain, abdominal pain, foul smelling urine. Discussed with ER provider, son, and orthopedic service. Orthopedics will continue discussions regarding possible surgical interventions for her continued dislocations. She was not reduced in the ER as there is likely a high probability of dislocation, she cannot return to her prior assisted living as they did not believe it was safe to do so at this time. Patient admitted to orthopedic service with medicine consultation of her dementia and hypertension. In the emergency room, the patient was mildly hypertensive, but the remainder of her vital signs were unremarkable. Lab work was notable for a mild hyponatremia with sodium of 132, approximately near the patient's baseline, and a potassium of 3.0. EKG was performed and showed sinus rhythm. Meds Home Medications and Allergies Home Medications Medication Instructions Recorded Confirmed Type acetaminophen 500 mg capsule 500 mg PO Q6H PRN pain 05/25/22 06/14/22 History atorvastatin 40 mg tablet 40 mg PO BEDTIME 05/25/22 06/14/22 History docusate sodium 100 mg capsule 100 mg PO DAILY PRN Constipation 05/25/22 06/14/22 History latanoprost 0.005 % eye drops 1 drp ophthalmic (eye) BEDTIME 05/25/22 06/14/22 History levothyroxine 50 mcg tablet 50 mcg PO DAILY 05/25/22 06/14/22 History metoprolol succinate 25 mg capsule 25 mg PO DAILY 05/25/22 06/14/22 History sprinkle, ext. release 24 hr sennosides 8.6 mg capsule (senna) 8.6 mg PO DAILY PRN Constipation 05/25/22 06/14/22 History sertraline 50 mg tablet 75 mg PO DAILY 05/25/22 06/14/22 History timolol 0.5 % eye drops 1 drp ophthalmic (eye) BID 05/25/22 06/14/22 History aspirin 81 mg tablet,delayed 81 mg PO BID #60 tabs 06/11/22 06/14/22 Rx release oxycodone 5 mg tablet 5 mg PO Q3HR PRN Pain, Moderate 06/11/22 06/14/22 Rx (4-6) #30 tabs hydrochlorothiazide 12.5 mg capsule 12.5 mg PO DAILY 06/14/22 06/14/22 History loperamide 2 mg capsule 2 mg PO QID PRN Diarrhea 06/14/22 06/14/22 History potassium chloride 20 mEq 10 meq PO DAILY 06/14/22 06/14/22 History tablet,extended release Allergies Allergy/AdvReac Type Severity Reaction Status Date / Time morphine AdvReac Severe Vomiting Verified 05/23/22 13:08 Review of Systems Review of Systems Narrative: All other systems reviewed with the patient (and son) and are negative unless otherwise stated though patient is unreliable in setting of dmenetia. Exam Vital Signs (past 8 hours): - 06/14/22 10:09 06/14/22 09:59 06/14/22 10:00 Temperature 97.9 F Pulse Rate 85 67 Pulse Rate [Right Dorsalis Pedis] Respiratory Rate 22 18 Blood Pressure 174/79 H 174/79 H Pulse Oximetry 99 98 Oxygen Delivery Method Room Air 06/14/22 10:00 06/14/22 10:20 06/14/22 10:30 Temperature Pulse Rate 68 67 Pulse Rate [Right Dorsalis Pedis] 88 Respiratory Rate Blood Pressure Pulse Oximetry 98 98 Oxygen Delivery Method 06/14/22 10:31 06/14/22 10:31 06/14/22 11:00 Temperature Pulse Rate 66 64 Pulse Rate [Right Dorsalis Pedis] Respiratory Rate Blood Pressure 182/66 H Pulse Oximetry 98 98 Oxygen Delivery Method 06/14/22 11:01 06/14/22 11:01 06/14/22 11:30 Temperature Pulse Rate 70 Pulse Rate [Right Dorsalis Pedis] Respiratory Rate Blood Pressure 134/61 138/90 Pulse Oximetry 97 Oxygen Delivery Method 06/14/22 11:30 06/14/22 13:00 06/14/22 13:01 Temperature Pulse Rate 66 87 86 Pulse Rate [Right Dorsalis Pedis] Respiratory Rate Blood Pressure Pulse Oximetry 98 98 98 Oxygen Delivery Method 06/14/22 13:01 06/14/22 13:30 06/14/22 13:30 Temperature Pulse Rate 85 Pulse Rate [Right Dorsalis Pedis] Respiratory Rate Blood Pressure 120/63 121/82 Pulse Oximetry 97 Oxygen Delivery Method 06/14/22 14:00 06/14/22 14:00 06/14/22 14:39 Temperature Pulse Rate 90 Pulse Rate [Right Dorsalis Pedis] Respiratory Rate Blood Pressure 120/85 Pulse Oximetry 97 Oxygen Delivery Method Room Air Oxygen Delivery Method Room Air Narrative Exam Narrative: GEN: elderly female, mild distress appears uncomfortable but denies pain. HEENT: moist mucous membranes, PERRL NECK: trachea midline, no JVD PULM: clear bilaterally, no wheezes, rhonchi, rales CV: regular rate and rhythm, no murmurs ABD: soft, nontender, nondistended, no organomegaly, normal bowel sounds EXT: warm and well perfused, no edema NEURO: awake, alert, confused Objective ECG Impression: normal sinus rhythm as interpreted by me. Labs Result Diagrams: 06/14/22 10:04 06/14/22 10:04 Labs: Laboratory Results - last 24 hr 06/14/22 06/14/22 06/14/22 10:04 10:04 10:04 WBC 9.1 RBC 3.98 L Hgb 11.6 L Hct 33.5 L MCV 84.3 MCH 29.2 MCHC 34.6 RDW 13.9 Plt Count 379 Neut % (Auto) 75.8 H Lymph % (Auto) 10.7 L [place] % (Auto) 12.7 Eos % (Auto) 0.4 L Baso % (Auto) 0.4 Neut # (Auto) 6900 Lymph # (Auto) 1000 L [place] # (Auto) 1100 H Eos # (Auto) 0 Baso # (Auto) 0 Sodium 132 L Potassium 3.0 L Chloride 98 Carbon Dioxide 26 BUN 8 Creatinine 0.38 L Estimated GFR > 60 BUN/Creatinine Ratio 21.1 Glucose 107 Calcium 7.9 L SARS-CoV-2 (PCR) Negative PFSH Medical History Dementia Glaucoma Hip dislocation, right Hypercholesterolemia Hypertension Hypothyroidism Surgical History H/O: hysterectomy History of hemiarthroplasty of hip Social History household members: other Tobacco & Substance Use Smoking Status: Never smoker alcohol intake: never substance use type: does not use Assessment & Plan Assessment & Plan narrative: 1. Right hip dislocation after recent R. hip hemiarthoplasty. -pain medications ordered -management per orthopedics, possible surgical management to be discussed by primary team with family. -patient appears medically optimized prior to surgery, no further evaluations necessary at this time. 2. Hypertension -continue home medications, HCTZ and metoprolol 3. Dementia -reorient as able -ativan ordered for anxiety/agitation though no difficulties thus far. -continue nightly seroquel 4. Hypothyroidism -continue synthroid 5. HLD - continue home statin 6. Hypokalemia, acute - k 3.0, will replete, no EKG changes. 7. Chronic hyponatremia. - Na 132, monitor daily, normally sodium between 132-136. CODE: DNR Proxy: patient's son Presley and Daughter Quinton I have utilized all available resources to reconcile the patient's home medications I have personally reviewed patient's prior documentation including previous admissions, reviewed current labs and documentation. Medicine will continue to follow patient during admission. COVID-19 COVID-19 status: Negative Time Spent With Patient Critical Care time: I spent a total of [] minutes of critical care time on this patient's care today ; this time is exclusive of procedural time.
--- NOTE | 2022-06-14 15:32 | DI.CT.S_ITS ---
PROCEDURE: CT PEL WO CON INDICATIONS: Eval for acetabular fracture as cause of recurrent dislocat TECHNIQUE: Noncontrast 3 mm axial sections acquired through the bony pelvis, with coronal and sagittal reformatting. COMPARISON: None. FINDINGS: Image quality: Excellent. Bones: There are a few very tiny osseous fragments of the posterior acetabulum seen. The prosthetic femoral head is located superior and slightly posterior to the acetabular fossa. No other fractures are seen. There are degenerative changes at the L5-S1 level in the spine. No visible periprosthetic lucency. Soft tissues: There is a prominent intramuscular fluid collection involving the right gluteus medius muscle posterior and extending lateral and caudal, measuring about 8.0 x 3.3 by 14.5 cm. Additionally, there is a smaller subcutaneous fluid collection mirroring that distribution. There is no intrapelvic fluid. The urinary bladder is decompressed with a Gardner catheter. Visible bowel loops are normal. IMPRESSION: 1. There are tiny osseous chip fractures seen in just posterior to the posterior acetabulum, chronicity uncertain. This may be due to the dislocation. 2. Superior and slightly inferior right femoroacetabular joint dislocation. 2. A subcutaneous and intramuscular fluid collection, potentially both hematoma. Dictated by: Esme Merino M.D. on 06/14/2022 at 16:24 Approved by: Esme Merino M.D. on 06/14/2022 at 16:44
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
[2022-06-14] MEDS: OXYCODONE IR 5 MG TABLET PO (17:49)
[2022-06-14] MEDS: LORazepam 0.5 MG TABLET PO (17:49)
[2022-06-14] MEDS: LATANOPROST 0.005% OPHTH 2.5 ML 1 DROPS EYE-BOTH (21:03)
[2022-06-14] MEDS: SODIUM CHLORIDE 0.9% FLUSH 10 ML IV (21:03)
[2022-06-14] MEDS: TIMOLOL 0.5% OPHTH 1 DROPS EYE-BOTH (21:03)
[2022-06-14] MEDS: QUETIAPINE 25 MG TABLET PO (21:03)
[2022-06-14] MEDS: ATORVASTATIN 20 MG TABLET 40 MG PO (21:03)
--- NOTE | 2022-06-14 23:49 | PC.NURSE ---
Addendum entered by Danielle Lozoya R.N. 06/15/22 06:07: UOP has been only 125cc this shift (had 450cc emptied from catheter at 1930). Gelacio SO, informed and order for IVF received. Patient denies pain this morning and has slept most of the night. Original Note: Patient is oriented only to self and birthdate. Very [place] and no hearing aids found in room. Breath sounds CTA with RA sat of 97%. HRR. Denied nausea. BT present and abdomen is soft; reportedly is incontinent of stool. Indwelling catheter is patent; urine is clear, moreno. Is on bedrest and unable to reposition herself so using Kathrin tilt to change position q2h. Denied pain and is currently asleep. Right UE is in a cast and has good CMS. Well approximated right hip incision noted with surrounding bruising. Has abductor wedge in place. Bilateral calf SCD's applied at shift change and is tolerating them without problem. Fall risk score is high and bed alarm is activated.
[2022-06-15 03:38] VITALS: BP 157/74; PULSE 77; RESP 16; TEMP 36.7; O2SAT 95
[2022-06-15] MEDS: LEVOTHYROXINE 50 MCG TABLET PO (05:59)
[2022-06-15] MEDS: SODIUM CHLORIDE 0.9% 1,000 ML 100 ML IV ×2 (05:59→20:26)
[2022-06-15 06:14] LABS: Hematocrit 32.8 % (36-46); Hemoglobin 11.2 g/dL (12.0-16.0); Mean Corpuscular HGB Conc 34.1 % (30-36); Mean Corpuscular Hemoglobin 28.8 PG (26-34); Mean Corpuscular Volume 84.3 fL (80-100); Platelet Count 297 X10^3/uL (150-400); Red Cell Distribution Width 13.8 % (11.6-14.8); White Blood Cell Count 7.6 X10^3/uL (4.5-11.0)
[2022-06-15 08:48] VITALS: BP 143/82; PULSE 68; TEMP 36.2; O2SAT 96
--- NOTE | 2022-06-15 11:06 | PM.PN.1 ---
Exam Vital Signs (past 8 hours): - 06/15/22 03:38 06/15/22 03:38 06/15/22 08:48 Temperature 98.0 F 97.1 F L Pulse Rate 77 68 Respiratory Rate 16 Blood Pressure 157/74 H 143/82 H Pulse Oximetry 95 96 Oxygen Flow Rate 0 0 06/15/22 09:50 Temperature Pulse Rate 68 Respiratory Rate Blood Pressure 143/82 H Pulse Oximetry Oxygen Flow Rate Oxygen Delivery Method Room Air Oxygen Flow Rate 0 Objective Labs Result Diagrams: 06/15/22 05:55 06/14/22 10:04 Labs: Laboratory Results - last 24 hr 06/14/22 06/15/22 10:04 05:55 WBC 7.6 RBC 3.90 L Hgb 11.2 L Hct 32.8 L MCV 84.3 MCH 28.8 MCHC 34.1 RDW 13.8 Plt Count 297 Sodium 132 L Potassium 3.0 L Chloride 98 Carbon Dioxide 26 BUN 8 Creatinine 0.38 L Estimated GFR > 60 BUN/Creatinine Ratio 21.1 Glucose 107 Calcium 7.9 L PFSH Medical History Dementia Glaucoma Hip dislocation, right Hypercholesterolemia Hypertension Hypothyroidism Surgical History H/O: hysterectomy History of hemiarthroplasty of hip Social History household members: other Smoking Status: Never smoker alcohol intake: never substance use type: does not use Assessment & Plan Assessment & Plan narrative: Patient admitted for recurrent dislocation of right hip s/p hemiarthroplasty 05/26/22. Patient has dementia along with sedation and not to respond to questions this am. On exam, patient is comfortably resting in bed. Will respond to touch. RLE with palpable pulse and patient spontaneously moves right ankle/toes responding to touch. No S/S of DVT to BLE. Will await Dr. Batista plan for her care. CT of pelvis performed yesterday. Continue current management. Possible surgical treatment tomorrow, will have Dr. Batista decide later today after he reviews patient's CT and discuss with family. Time Spent With Patient Critical Care time: I spent a total of [] minutes of critical care time on this patient's care today; this time is exclusive of procedural time. Quality VTE Deep Vein Thrombosis/Pulmonary Embolism Present on Admission: No
--- NOTE | 2022-06-15 13:31 | P.PN_ITS ---
Subjective Subjective Date Patient Seen: 06/15/22 Interval history: Ms. Porras is an 82W with PMH dementia, HTN, hypothyroid who was s/p R hip hemiarthoplasty on 05/26/2022, which was complicated by dislocation after initial discharge for which she was recently admitted and discharged from the orthopedic service on 06/11/22. She returned on 06/14/22 with a 2nd dislocation. Patient forgot to not cross her legs due to her underlying dementia. If he takes his managing the hip problem. Exam Vital Signs (past 8 hours): - 06/15/22 08:48 Temperature 97.1 F L Pulse Rate 68 Blood Pressure 143/82 H Pulse Oximetry 96 Oxygen Flow Rate 0 Oxygen Delivery Method Room Air Oxygen Flow Rate 0 Narrative Exam Narrative: GEN: elderly female, in no distress sleeping quietly HEENT: moist mucous membranes, PERRL NECK: trachea midline, no JVD PULM: clear bilaterally, no wheezes, rhonchi, rales CV: regular rate and rhythm, no murmurs ABD: soft, nontender, nondistended, no organomegaly, normal bowel sounds EXT: warm and well perfused, no edema NEURO: Unable to assess due to sleeping Objective Labs Result Diagrams: 06/15/22 05:55 06/14/22 10:04 Labs: Laboratory Results - last 24 hr 06/15/22 05:55 WBC 7.6 RBC 3.90 L Hgb 11.2 L Hct 32.8 L MCV 84.3 MCH 28.8 MCHC 34.1 RDW 13.8 Plt Count 297 PFSH Medical History Dementia Glaucoma Hip dislocation, right Hypercholesterolemia Hypertension Hypothyroidism Surgical History H/O: hysterectomy History of hemiarthroplasty of hip Social History household members: other Smoking Status: Never smoker alcohol intake: never substance use type: does not use Assessment & Plan Assessment & Plan narrative: 1. Right hip dislocation after recent R. hip hemiarthoplasty. -pain medications ordered -management per orthopedics, possible surgical management to be discussed by primary team with family. The orthopedic team is still evaluating the plan of treatment. -patient appears medically optimized prior to surgery, no further evaluations ne cessary at this time. 2. Hypertension -continue home medications, HCTZ and metoprolol 3. Dementia -reorient as able -ativan ordered for anxiety/agitation though no difficulties thus far. -continue nightly seroquel 4. Hypothyroidism -continue synthroid 5. HLD ?- continue home statin 6. Hypokalemia, acute ?- k 3.0, will replete, no EKG changes. Will monitor tomorrow. 7. Chronic hyponatremia. ?- Na 132, normally sodium between 132-136. We will monitor tomorrow. CODE: DNR Proxy: patient's son Presley and Daughter Quinton Humphreys will continue to follow patient during admission. Time Spent With Patient Critical Care time: I spent a total of [] minutes of critical care time on this patient's care today; this time is exclusive of procedural time. Quality VTE Deep Vein Thrombosis/Pulmonary Embolism Present on Admission: No
--- NOTE | 2022-06-15 13:59 | CM.DANOTE ---
Addendum entered by Zeina Nunez R.N. 06/15/22 14:28: Zeina Nunez RN Case Manager Original Note: DCP: Assessment: 82yo female who admitted via ambulance with R hip pain, related to artificial hip dislocation, there is noted right leg shortening and internal rotation. Pt had multiple dislocations since placement of her right hemiarthroplasty. Probable per H&P notes r/t non compliance with hip precaution status. Pt has dementia is oriented to self and resides at [facility]. This CM was able to attain pt baseline home status from her son, main contact Presley Malcolm and Sorting Livestock Worker Ruba at [facility]. Pt has been using a standard w/c and she is able to propel independently per Ruba, but she has been on more of a bedbound status since her brace was put on. [facility] # , Furnace And Wash Equipment Operator is Alejandro Weiss. who will be in tomorrow. This Pt does not drive. PCP: Nir Ayon Insurance: Medicare, [facility] Plan: Return to [facility] when medically stable. Transportation to be determined. Pt used BLS on previous visit. Discharge Planning/Care Management CM Discharge Assessment Start: 06/15/22 13:40 Freq: Status: Active Protocol: Document 06/15/22 13:41 CARLEEN (Rec: 06/15/22 13:58 CARLEEN [id number]) Discharge Planning Assessment Assigned Nursery Nurse Zeina Nunez RN Case Manager Advance Directives? Yes Advance Directives on File No History Provided By Family Member,Medical Record Has Patient been admitted in last 30 Yes days? Comment Right hip hemiarthroplasty performed on 05/26 here at [facility] Comment Pt resides at [facility] in [place] Household Members other Type of transporation used prior to Relies on Others admit Comment Pt used BLS transport back to [facility] with [facility] s/ p last hospital stay here at Facility Name Admitted From: Other Willing to Return to Facility? Yes Independent with ADL's No Is patient alert and oriented? Yes: Oriented to self Needs Assistance With Bathing,Eating,Grooming,Meal Prep,Toileting,Managing Medications,Home Chores / Shopping Caregiver for Another No DME Already Rented / Owned Wheelchair Patient/Family Preference LTAC Comment Pt will go back to [facility] terminal worker Memory Care unit once medically stable. Barriers to Discharge No Discharge Plan Assisted Living Facility Referrals Initiated None needed Additional Comment Pt resides at [facility]- Plan is to return to [facility] when medically stable via BLS. Furnace And Wash Equipment Operator is Alejandro Weiss LPN at [facility] Updated in Patient Room with Yes name and ext. # of Nursery Nurse Review Status In Process Next Review Type Continued Stay Review
[2022-06-15 15:59] VITALS: BP 150/91; PULSE 77; RESP 16; TEMP 36.1; O2SAT 98
[2022-06-15 19:00] VITALS: BP 161/76; PULSE 82; RESP 20; TEMP 36.4; O2SAT 97
[2022-06-15] MEDS: OXYCODONE IR 5 MG TABLET PO (20:12)
[2022-06-15] MEDS: QUETIAPINE 25 MG TABLET PO (20:12)
[2022-06-15] MEDS: ATORVASTATIN 20 MG TABLET 40 MG PO (20:13)
[2022-06-15] MEDS: TIMOLOL 0.5% OPHTH 1 DROPS EYE-BOTH (20:14)
[2022-06-15] MEDS: LATANOPROST 0.005% OPHTH 2.5 ML 1 DROPS EYE-BOTH (20:14)
[2022-06-16 03:00] VITALS: BP 144/61; PULSE 76; RESP 22; TEMP 36.6; O2SAT 95
[2022-06-16] MEDS: LEVOTHYROXINE 50 MCG TABLET PO (06:05)
[2022-06-16 06:35] LABS: Add Manual Diff / Slide Review NO; Basophils Absolute Auto 0 /uL (0-100); Basophils Percent Auto 0.5 % (0-2); Eosinophils Absolute Auto 200 /uL (0-450); Eosinophils Percent Auto 2.1 % (2-4); Hematocrit 32.4 % (36-46); Hemoglobin 10.9 g/dL (12.0-16.0); Lymphocytes Absolute Auto 1400 /uL (1100-4500); Lymphocytes Percent Auto 18.7 % (25-40); Mean Corpuscular HGB Conc 33.8 % (30-36); Mean Corpuscular Hemoglobin 28.6 PG (26-34); Mean Corpuscular Volume 84.8 fL (80-100); Monocytes Absolute Auto 1000 /uL (0-900); Monocytes Percent Auto 13.7 % (3-14); Neutrophils Absolute Auto 4700 /uL (1500-7000); Platelet Count 286 X10^3/uL (150-400); Red Blood Cell Count 3.82 X10^6/uL (4.0-5.2); Red Cell Distribution Width 13.9 % (11.6-14.8); White Blood Cell Count 7.3 X10^3/uL (4.5-11.0)
[2022-06-16 06:45] LABS: BUN Creatinine Ratio 30.6 (6-22); Blood Urea Nitrogen 15 mg/dL (7-17); Calcium 7.6 mg/dL (8.4-10.2); Carbon Dioxide 24 mmol/L (22-32); Chloride 103 mmol/L (98-107); Estimated Glomerular Filt Rate > 60 mL/min (>60); Glucose 91 mg/dL (80-110); HEMOLYSIS < 15 (0-50); Potassium 3.2 mmol/L (3.4-5.1); Sodium 134 mmol/L (137-145)
--- NOTE | 2022-06-16 07:08 | PM.PN.1 ---
Subjective Subjective Date Patient Seen: 06/16/22 Time Patient Seen: 07:08 Interval history: The patient is sleeping comfortably in her hospital bed. Exam Vital Signs (past 8 hours): - 06/16/22 03:00 Temperature 97.8 F Pulse Rate 76 Respiratory Rate 22 Blood Pressure 144/61 H Pulse Oximetry 95 Oxygen Flow Rate 0 Oxygen Delivery Method Room Air Oxygen Flow Rate 0 Narrative Exam Narrative: Right forearm cast is intact. Right lower extremity remains shortened and internally rotated. Objective Labs Result Diagrams: 06/16/22 06:06 06/16/22 06:06 Labs: Laboratory Results - last 24 hr 06/16/22 06/16/22 06:06 06:06 WBC 7.3 RBC 3.82 L Hgb 10.9 L Hct 32.4 L MCV 84.8 MCH 28.6 MCHC 33.8 RDW 13.9 Plt Count 286 Neut % (Auto) 65.0 Lymph % (Auto) 18.7 L [place]ole % (Auto) 13.7 Eos % (Auto) 2.1 Baso % (Auto) 0.5 Neut # (Auto) 4700 Lymph # (Auto) 1400 Toole # (Auto) 1000 H Eos # (Auto) 200 Baso # (Auto) 0 Sodium 134 L Potassium 3.2 L Chloride 103 Carbon Dioxide 24 BUN 15 Creatinine 0.49 L Estimated GFR > 60 BUN/Creatinine Ratio 30.6 H Glucose 91 Calcium 7.6 L PFSH Medical History Dementia Glaucoma Hip dislocation, right Hypercholesterolemia Hypertension Hypothyroidism Surgical History H/O: hysterectomy History of hemiarthroplasty of hip Social History household members: other Smoking Status: Never smoker alcohol intake: never substance use type: does not use Assessment & Plan Assessment & Plan narrative: The patient had a hemiarthroplasty placed for a right hip fracture and a plate placed for a right radial fracture on May 25, 2022. She subsequently has had multiple dislocations of her hemiarthroplasty. CT scan obtained over the weekend showed no acetabular fracture. I had an extensive discussion with the patient's son and durable power of deputy commonwealth's attorney, Presley, to explain treatment options. I have explained that she can be revised with a extension of her neck length to try to obtain more muscle tension although she already is slightly long. We would recheck the size of the head and probably put in a bipolar head to try to increase stability. I explained that this would lengthen her leg substantially and would most likely decrease the risk of dislocation but this could not be guaranteed. We also talked about his mother's general health, the fact that her dementia is rapidly worsening and that she seems fairly comfortable sleeping with the hip dislocated. He and his family have given it extensive thought and they wish to avoid further surgery and place the patient into hospice care. I have notified the hospital staff of this plan. Time Spent With Patient Time with patient: less than 30 minutes Critical Care time: I spent a total of [] minutes of critical care time on this patient's care today; this time is exclusive of procedural time. Quality VTE Deep Vein Thrombosis/Pulmonary Embolism Present on Admission: No
--- NOTE | 2022-06-16 07:38 | CM.DPC ---
Addendum entered by Zulema Mendoza R.N. 06/16/22 11:13: Was able to confirm with Evie at [facility] that Jaspreet at [facility] is opening patient tomorrow between [id number], and that equipment is being delivered between 0065-0812 tomorrow. Went ahead and called [facility], and set up turkey picker for tomorrow at 1430. Have had conversation with Quinton ROSENBAUM, that they most likely will receive a bill, unclear that this is covered. Have POLST attached to BLS form, and will get hospitalist to sign. Addendum entered by Zulema Mendoza R.N. 06/16/22 10:56: Spoke to Evie nurse at [facility]. Updated her on patient. Plan is for patient to return to [facility], she is aware. Patient is likely to DC tomorrow, equipment is being ordered. Did get a call back from [facility]. Equipment is to be delivered tomorrow between [id number]. [facility] is to open between [id number]. Will go ahead and set up BLS transport for tomorrow. Addendum entered by Zulema Mendoza R.N. 06/16/22 08:31: Spoke to patient's POA, Quinton, Presley is at work. Updated her that patient most likely will discharge home tomorrow. Referral has been sent to [facility]. Attempted to call over at [facility], [place], Evie is the nurse, [facility], indicated that she is currently unavailable, but can call her back. Did reinstate to Quinton that patient most likely will need to go BLS, and is not a normally covered service, and to expect a bill. She was under the understanding that it is covered due to her dementia, but let her know that this is not guaranteed, so she is aware. Called over to [facility], spoke to Maddi, she has the referral, nurse will call back. Original Note: DCP Cont: Dr. Batista came by the care management office and indicated, would like to facilitate hospice services per son and POA. Patient resides at [facility], [place]. Asking SRINIVASAN Nava temporary administrative assistant, to send clinical information to [facility]. Will follow up with a phone call today, and will reach out to facility and family. Patient would need to go BLS. P: DCP to continue to follow, and will work on plan to get patient back to [facility] services. Zulema Mendoza RN/Stretcher Drier Operator
[2022-06-16] MEDS: ENOXAPARIN 40 MG/0.4 ML SYRINGE SUBCUT ×2 (09:42→14:02)
[2022-06-16 09:43] VITALS: BP 144/61; PULSE 76
[2022-06-16] MEDS: SERTRALINE 50 MG TABLET 75 MG PO (09:43)
[2022-06-16] MEDS: METOPROLOL ER 25 MG TABLET PO (09:43)
[2022-06-16] MEDS: OXYCODONE IR 5 MG TABLET PO ×2 (09:44→21:25)
[2022-06-16] MEDS: SODIUM CHLORIDE 0.9% FLUSH 10 ML IV ×2 (09:45→21:35)
[2022-06-16] MEDS: hydroCHLOROthiazide 25 MG TABLET 12.5 MG PO (09:45)
[2022-06-16] MEDS: POTASSIUM CHLORIDE 20 MEQ TAB 10 MEQ PO (09:46)
[2022-06-16 11:00] VITALS: BP 143/64; PULSE 74; RESP 20; TEMP 36.6; O2SAT 96
[2022-06-16] MEDS: SODIUM CHLORIDE 0.9% 1,000 ML 100 ML IV (12:50)
[2022-06-16 13:51] VITALS: BP 143/64; PULSE 74
[2022-06-16] MEDS: LORazepam 0.5 MG TABLET PO (14:02)
--- NOTE | 2022-06-16 16:28 | PM.PN.1 ---
Subjective Subjective Date Patient Seen: 06/16/22 Interval history: Family has made the decision for hospice care only. No further intervention in regards to recurrent hip dislocation. No new complaints from the patient. No new complaints from nursing staff. Exam Vital Signs (past 8 hours): - 06/16/22 09:43 06/16/22 11:00 06/16/22 13:51 Temperature 97.9 F Pulse Rate 76 74 74 Respiratory Rate 20 Blood Pressure 144/61 H 143/64 H 143/64 H Pulse Oximetry 96 Oxygen Flow Rate 0 Oxygen Delivery Method Room Air Oxygen Flow Rate 0 Narrative Exam Narrative: GEN: elderly female, in no distress sleeping quietly, not arousable HEENT: moist mucous membranes, PERRL NECK: trachea midline, no JVD PULM: clear bilaterally, no wheezes, rhonchi, rales CV: regular rate and rhythm, no murmurs ABD: soft, nontender, nondistended, no organomegaly, normal bowel sounds EXT: warm and well perfused, no edema NEURO:? Unable to assess due to sleeping Objective Labs Result Diagrams: 06/16/22 06:06 06/16/22 06:06 Labs: Laboratory Results - last 24 hr 06/16/22 06/16/22 06:06 06:06 WBC 7.3 RBC 3.82 L Hgb 10.9 L Hct 32.4 L MCV 84.8 MCH 28.6 MCHC 33.8 RDW 13.9 Plt Count 286 Neut % (Auto) 65.0 Lymph % (Auto) 18.7 L [place] % (Auto) 13.7 Eos % (Auto) 2.1 Baso % (Auto) 0.5 Neut # (Auto) 4700 Lymph # (Auto) 1400 [place] # (Auto) 1000 H Eos # (Auto) 200 Baso # (Auto) 0 Sodium 134 L Potassium 3.2 L Chloride 103 Carbon Dioxide 24 BUN 15 Creatinine 0.49 L Estimated GFR > 60 BUN/Creatinine Ratio 30.6 H Glucose 91 Calcium 7.6 L PFSH Medical History Dementia Glaucoma Hip dislocation, right Hypercholesterolemia Hypertension Hypothyroidism Surgical History H/O: hysterectomy History of hemiarthroplasty of hip Social History household members: other Smoking Status: Never smoker alcohol intake: never substance use type: does not use Assessment & Plan Assessment & Plan narrative: 1. Right hip dislocation after recent R. hip hemiarthoplasty. -pain adequately controlled -family told orthopedic surgeon that they want no interventional min for the right hip. Wishes to be hospice care only. 2. Hypertension -continue home medications, HCTZ and metoprolol -reasonably controlled 3. Dementia -unable to arouse currently. Continue treatment with Ativan/Seroquel as needed for agitation. 4. Hypothyroidism -continue synthroid 5. HLD ?- continue home statin 6. Hypokalemia, acute ?- k 3.0 yesterday, will replete, no EKG changes.? Improved to 3.2 today. 7. Chronic hyponatremia. ?- Na 132, normally sodium between 132-136.? Today is 134. CODE: DNR, with hospice care as per the son and daughter's wishes. Proxy: patient's son Presley and Daughter Quinton [facility] will continue to follow patient during admission Time Spent With Patient Critical Care time: I spent a total of [] minutes of critical care time on this patient's care today; this time is exclusive of procedural time. Quality VTE Deep Vein Thrombosis/Pulmonary Embolism Present on Admission: No
[2022-06-16 19:00] VITALS: BP 161/75; PULSE 88; RESP 19; TEMP 36.8; O2SAT 95
[2022-06-16] MEDS: QUETIAPINE 25 MG TABLET PO (21:25)
[2022-06-16] MEDS: ATORVASTATIN 20 MG TABLET 40 MG PO (21:25)
[2022-06-16] MEDS: LATANOPROST 0.005% OPHTH 2.5 ML 1 DROPS EYE-BOTH (21:37)
[2022-06-16] MEDS: TIMOLOL 0.5% OPHTH 1 DROPS EYE-BOTH (21:37)
[2022-06-17 03:00] VITALS: BP 135/66; PULSE 86; RESP 20; TEMP 36.2; O2SAT 94
[2022-06-17] MEDS: LORazepam 0.5 MG TABLET PO ×2 (05:49→14:09)
[2022-06-17] MEDS: LEVOTHYROXINE 50 MCG TABLET PO (05:49)
[2022-06-17 06:27] LABS: BUN Creatinine Ratio 26.1 (6-22); Blood Urea Nitrogen 12 mg/dL (7-17); Calcium 7.6 mg/dL (8.4-10.2); Carbon Dioxide 26 mmol/L (22-32); Chloride 98 mmol/L (98-107); Estimated Glomerular Filt Rate > 60 mL/min (>60); Glucose 103 mg/dL (80-110); HEMOLYSIS < 15 (0-50); Potassium 3.1 mmol/L (3.4-5.1); Sodium 131 mmol/L (137-145)
[2022-06-17 09:32] VITALS: BP 145/70
[2022-06-17] MEDS: METOPROLOL ER 25 MG TABLET PO (09:32)
[2022-06-17] MEDS: ENOXAPARIN 40 MG/0.4 ML SYRINGE SUBCUT (09:37)
[2022-06-17] MEDS: hydroCHLOROthiazide 25 MG TABLET 12.5 MG PO (09:41)
[2022-06-17] MEDS: SERTRALINE 50 MG TABLET 75 MG PO (09:41)
[2022-06-17] MEDS: POTASSIUM CHLORIDE 20 MEQ TAB 40 MEQ PO (09:43)
[2022-06-17] MEDS: SODIUM CHLORIDE 0.9% FLUSH 10 ML IV (09:43)
[2022-06-17] MEDS: TIMOLOL 0.5% OPHTH 1 DROPS EYE-BOTH (09:45)
--- NOTE | 2022-06-17 10:37 | CM.DPC ---
Addendum entered by Zulema Mendoza R.N. 06/17/22 13:19: Have patient's discharge summary completed, hospitalist did a script for Lorazapam, patient is also to have Dilaudid before she leaves today. Patient will continue with her Oxycodone, as is allergic to morphine. Called Alejandro nurse at [facility] and updated her, confirmed that she has some Oxycodone at her facility. Faxed over DC Summary, and script for Lorazepam to [facility]. Original Note: DCP Cont: Placed BLS paperwork by her chart, have updated nurse, Lyudmila. Spoke to Alejandro nurse at [facility], confirmed that they use [facility] in [place], but can fax [facility] the orders at: [phone]. Updated hospitalist, Dr. Mendiola, mentioned if she needs MS and Lorazepam as well. Daughter, Quinton SEAY, is updated, son, Presley, was here earlier seeing patient before he went to work. Will also send orders to [facility] as well. P: DCP to continue to follow and work on getting patient discharged back to [facility] [place] today, with belt picker at 1430. Once orders are completed, will fax [facility] and [facility]. Zulema Mendoza RN/Actuarial Science Professor
--- NOTE | 2022-06-17 10:46 | P.DS_ITS ---
History of Present Illness History of Present Illness Date Patient Seen: 06/17/22 Chief complaint: rt artificial hip disloc Narrative: Ms. Porras is an 82W with PMH dementia, HTN, hypothyroid who was s/p R hip hemiarthoplasty on 05/26/2022, which was complicated by dislocation after initial discharge for which she was recently admitted and discharged from the orthopedic service on 06/11/22. She returned tot ER with a 2nd dislocation. Patient forgets to not cross her legs due to her underlying dementia. Following her presentation, with a family decision along with the orthopedic surgeon, it was decided that the patient would not proceed with further surgery and the status of the patient was changed to hospice care only. This is the wishes of the son and daughter. Discharge Providers Provider Date of admission: 06/14/22 13:09 Discharge Date: 06/17/22 Primary care physician: Doctor Vicky MD Consults: 06/14/22 13:09 Consult to Hospitalist Service Stat Comment: Consulting Provider: Yonas Soto Reason for consultation: medical management, hypokalemia Has provider been notified: Yes 06/14/22 15:33 Consult to Discharge Planning Routine Comment: 06/16/22 07:08 Consult to Hospice Referral Routine Comment: 06/16/22 09:02 Consult to Hospice Referral Routine Comment: Discharge provider: Sweetie Hill MD Summary Hospital Course Discharge Diagnosis: Recurrent dislocation right hip Hypokalemia, acute Hyponatremia, chronic Hyperlipidemia Dementia Glaucoma Hip dislocation previously, right side Hypertension Hypothyroidism H/O: hysterectomy History of hemiarthroplasty of hip Hyperlipidemia Hospital Course: Patient presented with recurrent dislocation right hip. Due to the patient's dementia she was unable to avoid crossing her legs and therefore had a recurrent dislocation of the right hip. Increasingly became less responsive during the hospital stay and had decreased oral intake consistently. Decision was to change the status of the patient to hospice care only and to be discharged back to [facility] in [place]. Son and daughter were involved in this decision. Been kept comfortable during the hospital stay. Overall status at discharge is less than her usual functioning. She is essentially not responding and not eating. Status at Discharge Cognitive/behavioral status at discharge: at baseline, confused Functional status at discharge: bed bound Overall status at discharge: other Time Spent with Patient Time spent: Greater than 30 minutes Exam Vital Signs (past 8 hours): - 06/17/22 03:00 06/17/22 09:32 Temperature 97.2 F L Pulse Rate 86 Respiratory Rate 20 Blood Pressure 135/66 145/70 H Pulse Oximetry 94 Oxygen Flow Rate 0 Oxygen Delivery Method Room Air Oxygen Flow Rate 0 Narrative Exam Narrative: GEN: elderly female, in no distress sleeping quietly, not arousable HEENT: moist mucous membranes, PERRL NECK: trachea midline, no JVD PULM: clear bilaterally, no wheezes, rhonchi, rales CV: regular rate and rhythm, no murmurs ABD: soft, nontender, nondistended, no organomegaly, normal bowel sounds EXT: warm and well perfused, no edema NEURO:? Unable to assess due to sleeping and decreased level of consciousness. Objective Labs 06/16/22 06:06 06/17/22 06:04 Labs: Laboratory Results - last 24 hr 06/17/22 06:04 Sodium 131 L Potassium 3.1 L Chloride 98 Carbon Dioxide 26 BUN 12 Creatinine 0.46 L Estimated GFR > 60 BUN/Creatinine Ratio 26.1 H Glucose 103 Calcium 7.6 L PFSH Medical History Dementia Glaucoma Hip dislocation, right Hypercholesterolemia Hypertension Hypothyroidism Surgical History H/O: hysterectomy History of hemiarthroplasty of hip Social History household members: other Smoking Status: Never smoker alcohol intake: never substance use type: does not use Discharge Plan Discharge Plan Other facility: [facility] [address] [place] [address] which is patient's home. She will have Hospice care. Discharge orders & Medications Discharge Orders: Discharge (Order); Ordered 06/17/22 Ordered By: Sweetie Hill Prescriptions: New lorazepam 0.5 mg Tablet 0.5 mg PO Q6HR PRN (Reason: Anxiety) Qty: 20 0RF Continued oxycodone 5 mg Tablet 5 mg PO Q3HR PRN (Reason: Pain, Moderate (4-6)) Qty: 30 0RF Discontinued potassium chloride 20 mEq tablet extended release 10 meq PO DAILY loperamide 2 mg Capsule 2 mg PO QID PRN (Reason: Diarrhea) hydrochlorothiazide [Microzide] 12.5 mg Capsule 12.5 mg PO DAILY latanoprost 0.005 % Drops 1 drp OPHTHALMIC (EYE) BEDTIME Rx Instructions: both eyes atorvastatin 40 mg Tablet 40 mg PO BEDTIME levothyroxine 50 mcg Tablet 50 mcg PO DAILY Rx Instructions: Prior to meals timolol 0.5 % Drops 1 drp OPHTHALMIC (EYE) BID Rx Instructions: both eyes docusate sodium 100 mg Capsule 100 mg PO DAILY PRN (Reason: Constipation) sertraline 50 mg Tablet 75 mg PO DAILY acetaminophen 500 mg Capsule 500 mg PO Q6H PRN (Reason: pain) senna 8.6 mg Capsule 8.6 mg PO DAILY PRN (Reason: Constipation) metoprolol succinate 25 mg Capsule,Sprinkle,Er 24hr 25 mg PO DAILY aspirin 81 mg Tablet,Delayed Release (Dr/Ec) 81 mg PO BID Qty: 60 0RF Follow up/Referrals: Vicky,MD Jeferson [Primary Care Provider] - Discharge Data Primary Care Provider: Doctor Vicky Quality VTE Deep Vein Thrombosis/Pulmonary Embolism Present on Admission: No
[2022-06-17 11:00] VITALS: BP 140/70; PULSE 101; RESP 18; TEMP 36.3; O2SAT 94
--- NOTE | 2022-06-17 13:57 | PC.NURSE ---
Report called to DON at [facility]-all information given as requested - no further questions-Pt will be ready for BLS transfer at scheduled time.
[2022-06-17] MEDS: OXYCODONE IR 5 MG TABLET PO (14:09)
--- NOTE | 2022-06-17 14:40 | PC.NURSE ---
Pt report given to ambulance personnel, pt transferred to [facility], packet with Pt-and all belongings.
== END 2022-06-17 14:44 | DRG 560 ==
LOC: ED 13:09 → AC 13:10
PROVIDERS: Neuromusculoskeletal Medicine, Sports Medicine; Orthopaedic Surgery; Admitting Provider Orthopaedic Surgery Orthopaedic Surgery of the Spine; Emergency Provider Emergency Medicine; Referring Provider Emergency Medicine; Visit Provider Orthopaedic Surgery Orthopaedic Surgery of the Spine
DX: T84.020A Dislocation of internal right hip prosthesis, initial encounter (principal); E87.1 Hypo-osmolality and hyponatremia; I10 Essential (primary) hypertension; F03.90 Unspecified dementia, unspecified severity, without behavioral disturbance, psychotic disturbance, mood disturbance, and anxiety; E03.9 Hypothyroidism, unspecified; E78.5 Hyperlipidemia, unspecified; E87.6 Hypokalemia; H40.9 Unspecified glaucoma; Z66 Do not resuscitate; Z20.822 Contact with and (suspected) exposure to COVID-19
CPT/HCPCS: 36415; 72192; 73502; 80048; 85025; 85027; 87635; 93005; 96374; 99284; C9803; J1650; J1885; J2405